=== PATIENT | female | born 1960 | race Caucasian/White ===

== ENCOUNTER 2016-05-02 14:01 | Emergency (ER) | payer OTHER ==
--- NOTE | 2016-05-02 15:16 | ED ---
Fall HPI - General Chief Complaint: Fall Stated Complaint: Fall Right side Pain Time Seen by Provider: 05/02/16 14:58 Source: patient, RN notes reviewed Mode of arrival: ambulatory - History of Present Illness Initial Comments: Patient is a 56-year-old female presents to the emergency room for evaluation of right anterior rib pain. Patient states on she tripped and fell running into the corner of her dresser. Patient states her rib area just underneath her right breast ran into the corner. Patient states she still having continuing pain since the incident. Patient states pain is worse or she takes a deep breath or coughs. Patient denies shortness of breath. Patient does admit that she smokes about a pack a half per day. Patient denies chest pain. Patient denies any other injuries during incident. Patient states that she has [place] that she takes at home for chronic pain and [place] was not helping her rib pain. Patient states that the pain has not gone away since so she thought she should come in to be evaluated. - Related Data Home Medications Medication Instructions Recorded Confirmed Citalopram Hydrobromide [CeleXA] 10 mg PO DAILY 05/02/16 05/02/16 HYDROcodone/APAP 7.5-325MG [[place] 1 tab PO Q6HR PRN 05/02/16 05/02/16 7.5-325] rOPINIRole HCL [Requip] 1 mg PO HS 05/02/16 05/02/16 Allergies Allergy/AdvReac Type Severity Reaction Status Date / Time aspirin Allergy Unknown Verified 05/02/16 14:52 Childhood Review of Systems ROS Statement: Those systems with pertinent positive or pertinent negative responses have been documented in the HPI. ROS Other: All systems not noted in ROS Statement are negative. 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 Limitations: no limitations General appearance: alert, in no apparent distress Head exam: Present: atraumatic, normocephalic, normal inspection Eye exam: Present: normal appearance ENT exam: Present: normal exam Neck exam: Present: normal inspection Respiratory exam: Present: normal lung sounds bilaterally, chest wall tenderness (Tenderness on palpating over the anterior rib area inferior to the right breast. No ecchymosis or swelling noted.). Absent: respiratory distress Cardiovascular Exam: Present: regular rate, normal rhythm, normal heart sounds Extremities exam: Present: normal inspection Back exam: Present: normal inspection Neurological exam: Present: alert, oriented X3, CN II-XII intact, normal gait Psychiatric exam: Present: normal affect, normal mood Skin exam: Present: warm, dry, intact, normal color. Absent: rash Course Vital Signs 05/02/16 14:48 Temperature 97.9 F Pulse Rate 93 Respiratory 18 Rate Blood Pressure 126/81 O2 Sat by Pulse 97 Oximetry Medical Decision Making - Medical Decision Making Patient is a 56-year-old female presents to the emergency room for evaluation of right anterior rib pain from fall. Chest x-ray shows no acute fractures or dislocation of the ribs. Results discussed with patient. Advised for patient to follow-up with PCP for repeat chest x-ray in 2 weeks. Advised patient to continue taking her at home [place] as needed for pain. Patient states she understands everything that was discussed with her. Return parameters discussed. Case discussed with Dr. Angeles. - Radiology Data Radiology results: report reviewed, image reviewed Disposition Clinical Impression: Fall, Contusion of rib on right side Disposition: HOME SELF-CARE Condition: Good Instructions: Rib Contusion (ED) Additional Instructions: Alternate ice and heat. Continue taking at home pain medications as needed. Please follow up with primary care provider for repeat chest x-ray in 2 weeks. If any new symptom arises or symptoms worsen, return to ER as soon as possible. Referrals: Estiven Sagastume MD [Primary Care Provider] - 1-2 days Time of Disposition: 16:16
--- NOTE | 2016-05-02 16:00 | XR ---
EXAMINATION TYPE: XR ribs RT w pa chest x-ray DATE OF EXAM: 05/02/2016 3:28 PM CLINICAL HISTORY: Right-sided chest and rib pain after injury. TECHNIQUE: Single frontal view of the chest is obtained. A frontal and oblique images of the right-si ded ribs are acquired. COMPARISON: Chest x-ray December 20, 2014. FINDINGS: There is no focal air space opacity, pleural effusion, or pneumothorax seen. The cardiac silhouette size is within normal limits. Surgical clips epigastric region are noted. Dedicated images of right-sided ribs show no acute displaced fracture. Overlying soft tissue is unrem arkable. IMPRESSION: 1. No acute cardiopulmonary process. 2. No acute displaced right-sided rib fractures are evident.
[2016-05-02 16:24] VITALS: BP 120/88; PULSE 78; RESP 16; TEMP 97
== END 2016-05-02 16:24 | disposition home or self-care (01) ==
LOC: EC 14:01
DX: S20.211A Contusion of right front wall of thorax, initial encounter (principal); W01.190A Fall on same level from slipping, tripping and stumbling with subsequent striking against furniture, initial encounter; F17.200 Nicotine dependence, unspecified, uncomplicated; Z79.899 Other long term (current) drug therapy; Z88.6 Allergy status to analgesic agent
CPT/HCPCS: 99284

== ENCOUNTER 2016-10-29 10:06 | Observation (INO) | payer OTHER ==
[2016-10-29] MEDS ORDERED: SODIUM CHLORIDE 0.9% 500 ML IV STA (10:49)
--- NOTE | 2016-10-29 11:00 | ED ---
General Adult HPI - General Chief complaint: Chest Pain Stated complaint: POSS HEART PROBLEM, SENT BY DR PIPER OFFICE Time Seen by Provider: 10/29/16 10:10 Source: patient, RN notes reviewed Mode of arrival: wheelchair Limitations: no limitations - History of Present Illness Initial comments: This is a 56-year-old female presents emergency department stating she has had left-sided chest pain for one week it is been constant every day and is sharp in quality. Patient states it's worse with deep breathing or coughing. It is worse with palpating the chest as well. Patient also complains of some left arm pain which is also worse with movement and or palpation. Patient denies any fever chills but she has been complaining of a cough lately. Patient states she is a smoker and has been thinking of putting but has not quit. Patient denies any palpitations. Patient denies being short of breath. Patient denies any abdominal pain patient denies nausea vomiting diarrhea per patient denies headache patient denies numbness weakness. Patient denies lightheadedness dizziness or near syncopal episode. - Related Data Home Medications Medication Instructions Recorded Confirmed HYDROcodone/APAP 7.5-325MG [[place] 1 tab PO TID 05/02/16 10/29/16 7.5-325] Citalopram Hydrobromide [CeleXA] 20 mg PO HS 10/29/16 10/29/16 rOPINIRole HCL [Requip] 0.5 mg PO HS 10/29/16 10/29/16 Allergies Allergy/AdvReac Type Severity Reaction Status Date / Time aspirin Allergy Bleeding Verified 10/29/16 10:56 disorder as a child Review of Systems ROS Statement: Those systems with pertinent positive or pertinent negative responses have been documented in the HPI. ROS Other: All systems not noted in ROS Statement are negative. 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 Patient is nontoxic and well- hydrated and is in mild distress. ENT: Neck is soft and supple. No significant lymphadenopathy is noted. Oropharynx is clear. Moist mucous membranes. Neck has full range of motion without eliciting any pain. There is no thyroid enlargement and no masses were felt. EYES: The sclera were anicteric and conjunctiva were pink and moist. Extraocular movements were intact and pupils were equal round and reactive to light. Eyelids were unremarkable. PULMONARY: Unlabored respirations. Good breath sounds bilaterally. No audible rales rhonchi or wheezing was noted. CARDIOVASCULAR: There is a regular rate and rhythm without any murmurs gallops or rubs. Patient has chest tenderness on the left upper chest with palpation. Patient states this exact pain she has when she takes a deep breath. ABDOMEN: Soft and nontender with normal bowel sounds. No palpable organomegaly was noted. There is no palpable pulsatile mass. SKIN: Skin is clear with no lesions or rashes and otherwise unremarkable. NEUROLOGIC: Patient is alert and oriented x3. Cranial nerves II through XII are grossly intact. Motor and sensory are also intact. Normal speech, volume and content. Symmetrical smile. MUSCULOSKELETAL: Normal extremities with adequate strength and full range of motion. No lower extremity swelling or edema. No calf tenderness. LYMPHATICS: No significant lymphadenopathy is noted PSYCHIATRIC: Limitations: no limitations Course Vital Signs 10/29/16 10/29/16 10/29/16 10:11 10:30 12:47 Temperature 99.0 F 98.1 F Pulse Rate 94 71 Respiratory 20 18 18 Rate Blood Pressure 142/81 117/60 O2 Sat by Pulse 97 98 Oximetry Medical Decision Making - Medical Decision Making EKG shows normal sinus rhythm at 80 bpm [place] interval is 172 QRS 72 QT interval 352 QTC is 405 patient's EKG shows no ST segment elevation or depression or T wave abnormalities are noted. Patient's chest x-ray shows no acute normalities. Patient's white count was elevated as was her neutrophils and the fact that she had no spleen and decided to give the patient antibiotics 2 blood cultures and admit the patient. - Lab Data Result diagrams: 10/29/16 10:24 10/29/16 10:24 Lab Results 10/29/16 10/29/16 10/29/16 Range/Units 10:24 10:24 10:24 WBC 24.0 H (3.8-10.6) k/uL RBC 4.94 (3.80-5.40) m/uL Hgb 15.4 (11.4-16.0) gm/dL Hct 48.4 H (34.0-46.0) % MCV 97.9 (80.0-100.0) fL MCH 31.1 (25.0-35.0) pg MCHC 31.8 (31.0-37.0) g/dL RDW 14.2 (11.5-15.5) % Plt Count 519 H (150-450) k/uL Neutrophils % 86 % Lymphocytes % 10 % Monocytes % 4 % Eosinophils % 0 % Basophils % 0 % Neutrophils # 20.6 H (1.3-7.7) k/uL Lymphocytes # 2.3 (1.0-4.8) k/uL Monocytes # 0.8 (0-1.0) k/uL Eosinophils # 0.1 (0-0.7) k/uL Basophils # 0.0 (0-0.2) k/uL PT (9.0-12.0) sec INR (<1.2) APTT (22.0-30.0) sec D-Dimer (<0.60) mg/L FEU Sodium 138 (137-145) mmol/L Potassium 4.9 (3.5-5.1) mmol/L Chloride 103 (98-107) mmol/L Carbon Dioxide 21 L (22-30) mmol/L Anion Gap 14 mmol/L BUN 17 (7-17) mg/dL Creatinine 0.80 (0.52-1.04) mg/dL Est GFR (MDRD) Af Amer >60 (>60 ml/min/1.73 sqM) Est GFR (MDRD) Non-Af >60 (>60 ml/min/1.73 sqM) Glucose 111 H (74-99) mg/dL Plasma Lactic Acid Fish (0.7-2.0) mmol/L Calcium 9.8 (8.4-10.2) mg/dL Magnesium 2.1 (1.6-2.3) mg/dL Total Bilirubin 0.4 (0.2-1.3) mg/dL AST 58 H (14-36) U/L ALT 63 H (9-52) U/L Alkaline Phosphatase 133 H (38-126) U/L Total Creatine Kinase 48 (30-135) U/L CK-MB (CK-2) 1.2 (0.0-2.4) ng/mL CK-MB (CK-2) Rel Index 2.5 Troponin I <0.012 (0.000-0.034) ng/mL Total Protein 7.7 (6.3-8.2) g/dL Albumin 4.7 (3.5-5.0) g/dL 10/29/16 10/29/16 Range/Units 10:24 12:15 WBC (3.8-10.6) k/uL RBC (3.80-5.40) m/uL Hgb (11.4-16.0) gm/dL Hct (34.0-46.0) % MCV (80.0-100.0) fL MCH (25.0-35.0) pg MCHC (31.0-37.0) g/dL RDW (11.5-15.5) % Plt Count (150-450) k/uL Neutrophils % % Lymphocytes % % Monocytes % % Eosinophils % % Basophils % % Neutrophils # (1.3-7.7) k/uL Lymphocytes # (1.0-4.8) k/uL Monocytes # (0-1.0) k/uL Eosinophils # (0-0.7) k/uL Basophils # (0-0.2) k/uL PT 10.0 (9.0-12.0) sec INR 1.0 (<1.2) APTT 23.5 (22.0-30.0) sec D-Dimer 0.23 (<0.60) mg/L FEU Sodium (137-145) mmol/L Potassium (3.5-5.1) mmol/L Chloride (98-107) mmol/L Carbon Dioxide (22-30) mmol/L Anion Gap mmol/L BUN (7-17) mg/dL Creatinine (0.52-1.04) mg/dL Est GFR (MDRD) Af Amer (>60 ml/min/1.73 sqM) Est GFR (MDRD) Non-Af (>60 ml/min/1.73 sqM) Glucose (74-99) mg/dL Plasma Lactic Acid Fish 1.0 (0.7-2.0) mmol/L Calcium (8.4-10.2) mg/dL Magnesium (1.6-2.3) mg/dL Total Bilirubin (0.2-1.3) mg/dL AST (14-36) U/L ALT (9-52) U/L Alkaline Phosphatase (38-126) U/L Total Creatine Kinase (30-135) U/L CK-MB (CK-2) (0.0-2.4) ng/mL CK-MB (CK-2) Rel Index Troponin I (0.000-0.034) ng/mL Total Protein (6.3-8.2) g/dL Albumin (3.5-5.0) g/dL Disposition Clinical Impression: Leukocytosis, Chest pain, History of splenectomy Disposition: ADMITTED IP TO THIS HOSP Referrals: Estiven Sagastume MD [Primary Care Provider] - 1-2 days Time of Disposition: 13:20
[2016-10-29 11:06] LABS: Basophils % (A) 0 %; CHCM 32.9; Eosinophils # (A) 0.1 k/uL (0-0.7); Eosinophils % (A) 0 %; HCT 48.4 % (34.0-46.0); HDW 2.17; HGB 15.4 gm/dL (11.4-16.0); Luc # (Auto) 0.16; Luc % (Auto) 1; Lymphocytes # (A) 2.3 k/uL (1.0-4.8); Lymphocytes % (A) 10 %; MCH 31.1 pg (25.0-35.0); MCHC 31.8 g/dL (31.0-37.0); MCV 97.9 fL (80.0-100.0); Monocytes # (A) 0.8 k/uL (0-1.0); Monocytes % (A) 4 %; Neutrophils # (A) 20.6 k/uL (1.3-7.7); Neutrophils % (A) 86 %; RBC 4.94 m/uL (3.80-5.40); RDW 14.2 % (11.5-15.5)
--- NOTE | 2016-10-29 11:12 | XR ---
EXAMINATION TYPE: XR chest 2V DATE OF EXAM: 10/29/2016 COMPARISON: 05/02/2016 HISTORY: Shortness of breath TECHNIQUE: Frontal and lateral views of the chest are obtained. FINDINGS: There is no focal air space opacity, pleural effusion, or pneumothorax seen. The cardiac silhouette size is within normal limits. The osseous structures are intact. Surgical clips are seen in the left upper quadrant. IMPRESSION: No acute cardiopulmonary process.
[2016-10-29 11:17] LABS: ALT 63 U/L (9-52); AST 58 U/L (14-36); Alkaline Phosphatase 133 U/L (38-126); Anion Gap 14 mmol/L; Blood Urea Nitrogen 17 mg/dL (7-17); Calcium 9.8 mg/dL (8.4-10.2); Carbon Dioxide 21 mmol/L (22-30); Chloride 103 mmol/L (98-107); Glucose 111 mg/dL (74-99); Magnesium 2.1 mg/dL (1.6-2.3); Non-African American GFR(MDRD) >60 (>60 ml/min/1.73 sqM); Potassium 4.9 mmol/L (3.5-5.1); Sodium 138 mmol/L (137-145); Total Bilirubin 0.4 mg/dL (0.2-1.3); Total Protein 7.7 g/dL (6.3-8.2)
[2016-10-29 11:27] LABS: Creatine Kinase 48 U/L (30-135)
[2016-10-29 11:37] LABS: Partial Thromboplastin Time 23.5 sec (22.0-30.0)
[2016-10-29 11:40] LABS: Creatine Kinase MB 1.2 ng/mL (0.0-2.4); Troponin I <0.012 ng/mL (0.000-0.034)
[2016-10-29] MEDS ORDERED: LEVOFLOXACIN 750MG-D5W PMX 750 MG in DEXTROSE/WATER 1 150ML.BAG IVPB STA (12:00)
[2016-10-29] MEDS ORDERED: SODIUM CHLORIDE 0.9% 1,000 ML IV ONE ×2 (12:01→13:20)
[2016-10-29] MEDS ORDERED: HYDROmorphone 1 MG/ML 1 ML SYRINGE IVP STA (13:05)
[2016-10-29 13:31] LABS: Appearance,Urine Clear (Clear); Bilirubin,Urine Negative (Negative); Glucose,Urine (UA) Negative (Negative); Ketones,Urine Negative (Negative); Leukocyte Esterase,Urine Negative (Negative); Nitrite,Urine Negative (Negative); PH, Urine 5.5 (5.0-8.0); Particle Count 605; Protein,Urine Negative (Negative); Specific Gravity,Urine 1.006 (1.001-1.035); UA Billing (MACRO vs. MICRO) CHEM; Urobilinogen,Urine <2.0 mg/dL (<2.0)
[2016-10-29] MEDS ORDERED: PNEUMOCOCCAL VACC-PNEUMOVAX 23 25 MCG/0.5 ML VIAL IM ONE (16:03)
--- NOTE | 2016-10-29 16:27 | US ---
EXAMINATION TYPE: US venous doppler duplex UE LT DATE OF EXAM: 10/29/2016 COMPARISON: NONE CLINICAL HISTORY: Pain. Left arm pain x 1 week SIDE PERFORMED: Left Left Arm: Appears negative for DVT Structures were possible are compressible. Normal color flow and normal Doppler sonography is present . No persistent filling defects are evident. IMPRESSION: Left upper extremity appears negative for deep venous thrombosis.
[2016-10-29] MEDS: HYDROcodone/APAP 7.5-325MG 1 EACH TAB PO SCH ×2 (17:36→20:53)
[2016-10-29] MEDS ORDERED: CITALOPRAM HYDROBROMIDE 20 MG TAB PO SCH (21:00)
[2016-10-29] MEDS ORDERED: MELATONIN 3 MG TABLET PO SCH (21:00)
--- NOTE | 2016-10-30 07:22 | XR ---
EXAMINATION TYPE: XR chest 2V DATE OF EXAM: 10/30/2016 COMPARISON: Yesterday HISTORY: Chest pain TECHNIQUE: Frontal and lateral views of the chest are obtained. FINDINGS: Heart and mediastinum are normal. Lungs are clear of consolidation. There are no hilar mas ses. There is no pleural effusion. The bony thorax is intact. IMPRESSION: No active cardiopulmonary disease. Normal heart. There is clearing of minimal atelectasi s in the right lung compared to last exam.
[2016-10-30 07:58] LABS: Basophils % (A) 0 %; CH 31.6; CHCM 31.6; Eosinophils # (A) 0.1 k/uL (0-0.7); Eosinophils % (A) 1 %; HCT 44.3 % (34.0-46.0); HDW 2.25; HGB 13.5 gm/dL (11.4-16.0); Luc # (Auto) 0.39; Luc % (Auto) 2; Lymphocytes # (A) 4.4 k/uL (1.0-4.8); Lymphocytes % (A) 28 %; MCH 30.7 pg (25.0-35.0); MCHC 30.4 g/dL (31.0-37.0); MCV 100.7 fL (80.0-100.0); Macrocytosis Slight; Mean Platelet Volume 8.5; Monocytes # (A) 0.8 k/uL (0-1.0); Monocytes % (A) 5 %; Neutrophils # (A) 10.2 k/uL (1.3-7.7); Neutrophils % (A) 64 %; RDW 14.2 % (11.5-15.5); WBC 15.9 k/uL (3.8-10.6); WBC (Perox) 16.17
[2016-10-30] MEDS: HYDROcodone/APAP 7.5-325MG 1 EACH TAB PO SCH ×2 (08:29→17:37)
[2016-10-30 08:37] LABS: ALT 45 U/L (9-52); AST 34 U/L (14-36); Alkaline Phosphatase 76 U/L (38-126); Anion Gap 5 mmol/L; Blood Urea Nitrogen 13 mg/dL (7-17); Calcium 8.6 mg/dL (8.4-10.2); Carbon Dioxide 21 mmol/L (22-30); Chloride 113 mmol/L (98-107); Glucose 87 mg/dL (74-99); Non-African American GFR(MDRD) >60 (>60 ml/min/1.73 sqM); Potassium 4.8 mmol/L (3.5-5.1); Sodium 139 mmol/L (137-145); Total Bilirubin 0.2 mg/dL (0.2-1.3); Total Protein 5.4 g/dL (6.3-8.2)
[2016-10-30] MEDS ORDERED: LEVOFLOXACIN 750MG-D5W PMX 750 MG in DEXTROSE/WATER 1 150ML.BAG IVPB SCH (12:30)
[2016-10-30 16:09] VITALS: BP 107/59; PULSE 59; RESP 14; TEMP 98.3
[2016-10-30] MEDS ORDERED: methylPREDNISolone SOD SUCCI 125 MG/2 ML VIAL IV STA (16:51)
--- NOTE | 2016-10-30 17:39 | P.HPIM ---
History of Present Illness H&P Date: 10/29/16 This is a 56-year-old female comes in the hospital with ongoing pain in her left arm and her anterior chest worsened with any movement for last 1 week. States that she has a history of tobacco use and underlying COPD has been having significant amount of cough with thick sputum production Patient was seen in the ER chest x-ray did not reveal any pneumonic infiltrate. Patient however was clinically wheezing apparently at that time was given a breathing treatment Due to pain in her left upper arm ultrasound was done which was negative Denies having any headaches blurry vision nausea vomiting abdominal pain urinary urgency or frequency per EKG does not reveal ST-T wave changes no conduction delays are noted. Initial troponin was negative. Review of Systems All systems: negative (Noted in HPI) Past Medical History Past Medical History: Osteoarthritis (OA) Additional Past Medical History / Comment(s): pt is rt hand dominant. 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 , pain clinic procedures-cortison inj Past Anesthesia/Blood Transfusion Reactions: No Reported Reaction Smoking Status: Current every day smoker - Past Family History Father Family Medical History: Cancer Additional Family Medical History / Comment(s): colon cancer Mother Family Medical History: Congestive Heart Failure (CHF) Additional Family Medical History / Comment(s): emphysema Medications and Allergies Home Medications Medication Instructions Recorded Confirmed Type HYDROcodone/APAP 7.5-325MG [[place] 1 tab PO TID 05/02/16 10/29/16 History 7.5-325] Citalopram Hydrobromide [CeleXA] 20 mg PO HS 10/29/16 10/29/16 History Melatonin 12 mg PO HS 10/29/16 10/29/16 History rOPINIRole HCL [Requip] 0.5 mg PO HS 10/29/16 10/29/16 History Allergies Allergy/AdvReac Type Severity Reaction Status Date / Time aspirin Allergy Bleeding Verified 10/29/16 10:56 disorder as a child Physical Exam Vitals: Vital Signs Temp Pulse Pulse Resp BP BP Pulse Ox 10/29/16 19:41 98.3 F 80 18 122/65 93 L 10/29/16 16:00 17 10/29/16 15:34 97.8 F 70 17 100/61 96 10/29/16 14:26 98.2 F 60 18 144/64 99 10/29/16 13:48 98.0 F 81 18 131/75 97 10/29/16 12:47 98.1 F 71 18 117/60 98 10/29/16 10:30 18 10/29/16 10:11 99.0 F 94 20 142/81 97 Intake and Output 10/29/16 10/29/16 10/29/16 06:59 14:59 22:59 Intake Total 240 Balance 240 Intake: Oral 240 Other: Voiding Method Toilet Toilet Weight 64 kg Patient Weight 10/30/16 06:59 Weight 64 kg Physical exam Gen. appearance oriented 3 in no distress Neck is supple no JVD Lungs wheezing is appreciated. No rhonchi noted. Musculoskeletal some recurrence of symptoms with flexion of the left arm Heart S1-S2 heard regular rate and rhythm no murmurs appreciated Abdomen is soft nontender no organomegaly bowel sounds are intact Neurologically cranial nerves II-12 grossly intact no focal motor or sensory deficits noted Skin no abnormalities appreciated Results CBC & Chem 7: 10/30/16 07:38 10/30/16 07:34 Labs: Abnormal Lab Results - Last 24 Hours (Table) 10/29/16 10/29/16 Range/Units 10:24 10:24 WBC 24.0 H (3.8-10.6) k/uL Hct 48.4 H (34.0-46.0) % Plt Count 519 H (150-450) k/uL Neutrophils # 20.6 H (1.3-7.7) k/uL Carbon Dioxide 21 L (22-30) mmol/L Glucose 111 H (74-99) mg/dL AST 58 H (14-36) U/L ALT 63 H (9-52) U/L Alkaline Phosphatase 133 H (38-126) U/L Assessment and Plan Plan: Leucocytosis due to tracheobronchitis Left arm tenderness, musculoskeletal splenectomy Acute exacerbation of underlying COPD Plan Pneumovax was given patient is recommended to have a meningococcal vaccine outpatient due to history of splenectomy Patient will be discharged home on a burst of steroids and Levaquin for 5 days Symptoms of improved.
--- NOTE | 2016-10-30 17:40 | P.DS ---
Providers Date of admission: 10/29/16 13:20 Attending physician: Paramjit Buckley MD Primary care physician: Estiven Sagastume [facility] Course: This is a 56-year-old female comes in the hospital with ongoing pain in her left arm and her anterior chest worsened with any movement for last 1 week. States that she has a history of tobacco use and underlying COPD has been having significant amount of cough with thick sputum production Patient was seen in the ER chest x-ray did not reveal any pneumonic infiltrate. Patient however was clinically wheezing apparently at that time was given a breathing treatment Due to pain in her left upper arm ultrasound was done which was negative Denies having any headaches blurry vision nausea vomiting abdominal pain urinary urgency or frequency per EKG does not reveal ST-T wave changes no conduction delays are noted. Initial troponin was negative. 2016 Patient's symptoms is significantly improved Denies having any additional complaints however is concerned regarding her breathing. Is able to ambulate without any hypoxemia. Nonproductive cough is reported as well Physical exam Gen. appearance oriented 3 in no distress Neck is supple no JVD Lungs wheezing is appreciated. No rhonchi noted. Musculoskeletal some recurrence of symptoms with flexion of the left arm Heart S1-S2 heard regular rate and rhythm no murmurs appreciated Abdomen is soft nontender no organomegaly bowel sounds are intact Neurologically cranial nerves II-12 grossly intact no focal motor or sensory deficits noted Skin no abnormalities appreciated Assessment and Plan Plan: Leucocytosis due to tracheobronchitis Left arm tenderness, musculoskeletal splenectomy Acute exacerbation of underlying COPD Plan Pneumovax was given patient is recommended to have a meningococcal vaccine outpatient due to history of splenectomy Patient will be discharged home on a burst of steroids and Levaquin for 5 days Symptoms of improved. Plan - Discharge Summary New Discharge Prescriptions: New Levofloxacin [Levaquin] 500 mg PO DAILY #5 tab predniSONE [Deltasone] 40 mg PO DAILY #10 tablet Continue HYDROcodone/APAP 7.5-325MG [[place] 7.5-325] 1 tab PO TID Citalopram Hydrobromide [CeleXA] 20 mg PO HS rOPINIRole HCL [Requip] 0.5 mg PO HS Melatonin 12 mg PO HS Discharge Medication List HYDROcodone/APAP 7.5-325MG [[place] 7.5-325] 1 tab PO TID 05/02/16 [History] Citalopram Hydrobromide [CeleXA] 20 mg PO HS 10/29/16 [History] Melatonin 12 mg PO HS 10/29/16 [History] rOPINIRole HCL [Requip] 0.5 mg PO HS 10/29/16 [History] Levofloxacin [Levaquin] 500 mg PO DAILY #5 tab 10/30/16 [Rx] predniSONE [Deltasone] 40 mg PO DAILY #10 tablet 10/30/16 [Rx] Follow up Appointment(s)/Referral(s): Estiven Sagastume MD [Primary Care Provider] - 1-2 days Discharge Disposition: HOME SELF-CARE
== END 2016-10-30 18:24 | disposition home or self-care (01) ==
LOC: EC 10:06 → 3OBS 13:20
PROVIDERS: ADMIT Internal Medicine; ATTEND Internal Medicine
DX: J44.1 Chronic obstructive pulmonary disease with (acute) exacerbation (principal); Z23 Encounter for immunization; M79.602 Pain in left arm; F17.200 Nicotine dependence, unspecified, uncomplicated; G89.29 Other chronic pain; F32.9 Major depressive disorder, single episode, unspecified; D72.829 Elevated white blood cell count, unspecified; M16.0 Bilateral primary osteoarthritis of hip; M70.71 Other bursitis of hip, right hip; M70.72 Other bursitis of hip, left hip; Z90.81 Acquired absence of spleen; Z88.6 Allergy status to analgesic agent; Z79.891 Long term (current) use of opiate analgesic; Z79.899 Other long term (current) drug therapy; Z82.5 Family history of asthma and other chronic lower respiratory diseases; Z82.49 Family history of ischemic heart disease and other diseases of the circulatory system
CPT/HCPCS: 96361 ×2; 96366; 96367; 96375 ×2; 96365; 99285; 36415; 93005; 85379; 80053 ×2; 82550; 82553; 83605; 83735; 84484; 85025 ×2; 85610; 85730; 81003; 87040; 71020 ×2; 93971; 90732; G0378 ×2; G0009; J2930; J0696 ×2; J1170; J1956 ×2

== ENCOUNTER 2016-11-17 19:35 | Inpatient (IN) | payer OTHER ==
[2016-11-17] MEDS ORDERED: ACETAMINOPHEN TAB 500 MG TAB PO STA (19:47)
--- NOTE | 2016-11-17 20:01 | ED ---
General Adult HPI - General Chief complaint: Weakness Stated complaint: pain all over-revisit Time Seen by Provider: 11/17/16 19:47 Source: patient, family, RN notes reviewed, old records reviewed Mode of arrival: wheelchair Limitations: no limitations - History of Present Illness Initial comments: 56-year-old female presents chief complaint of fever and generalized weakness. Patient does admit to coughing over the past week. She was seen and evaluated approximately 3 weeks ago for fever and weakness. She received antibiotics and steroids at that time. She was discharged from the hospital and then over the past week some of the symptoms have returned including productive cough, right- sided chest pain. Patient denies any nausea vomiting or diarrhea, she has been constipated. She does have past medical history of chronic pain and takes Claude. She is a current smoker. She denies dysuria, but does state urinary frequency and urgency. Past surgical history of splenectomy. - Related Data Home Medications Medication Instructions Recorded Confirmed HYDROcodone/APAP 7.5-325MG [Claude 1 tab PO TID 05/02/16 11/17/16 7.5-325] Citalopram Hydrobromide [CeleXA] 20 mg PO HS 10/29/16 11/17/16 Melatonin 10 mg PO HS 10/29/16 11/17/16 rOPINIRole HCL [Requip] 0.5 mg PO HS 10/29/16 11/17/16 Polyethylene Glycol 3350 [Miralax] 17 gm PO DAILY PRN 11/17/16 11/17/16 Previous Rx's Medication Instructions Recorded predniSONE [Deltasone] 40 mg PO DAILY #10 tablet 10/30/16 Allergies Allergy/AdvReac Type Severity Reaction Status Date / Time aspirin Allergy Bleeding Verified 11/17/16 20:15 disorder as a child Review of Systems ROS Statement: Those systems with pertinent positive or pertinent negative responses have been documented in the HPI. ROS Other: All systems not noted in ROS Statement are negative. Past Medical History Past Medical History: Osteoarthritis (OA) Additional Past Medical History / Comment(s): pt is rt hand dominant. 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 , pain clinic procedures-cortison inj Past Anesthesia/Blood Transfusion Reactions: No Reported Reaction Past Psychological History: Depression Smoking Status: Current every day smoker Past Alcohol Use History: Daily Past Drug Use History: None Reported - Past Family History Father Family Medical History: Cancer Additional Family Medical History / Comment(s): colon cancer Mother Family Medical History: Congestive Heart Failure (CHF) Additional Family Medical History / Comment(s): emphysema General Exam Limitations: no limitations General appearance: alert, in distress Head exam: Present: atraumatic, normocephalic Eye exam: Present: normal appearance, PERRL ENT exam: Present: mucous membranes moist Neck exam: Present: normal inspection. Absent: meningismus Respiratory exam: Present: rales (Right lung field). Absent: respiratory distress Cardiovascular Exam: Present: normal rhythm, tachycardia GI/Abdominal exam: Present: soft, distended. Absent: tenderness, guarding Extremities exam: Present: normal inspection, normal capillary refill. Absent: pedal edema Neurological exam: Present: alert, oriented X3, CN II-XII intact. Absent: motor sensory deficit Psychiatric exam: Present: normal affect, normal mood Skin exam: Present: warm, dry, intact, cyanosis. Absent: diaphoretic Course Vital Signs 11/17/16 11/17/16 11/17/16 19:42 20:07 20:47 Temperature 102.8 F H 102.7 F H Pulse Rate 121 H 96 Pulse Rate [ 112 H [employer] ] Respiratory 20 17 Rate Blood Pressure 108/67 128/71 O2 Sat by Pulse 95 96 Oximetry EKG Findings - EKG Comments: EKG Findings:: EKG shows sinus tachycardia, ventricular rate 119, there is possible left atrial enlargement, KS 162, QRS duration 74, QTC 427, no signs of ischemia Medical Decision Making - Medical Decision Making 56-year-old female presenting with chief complaint of generalized weakness, fever, and cough. Patient does have rails of the right middle lung field, she is tachycardic febrile, and blood pressure is stable although systolic pressure is 108. She receives Tylenol, IV hydration. Laboratory studies reveal elevation serum white count, 13.3, hemoglobin is stable. There is mild hyponatremia at 129. Chest x-ray reviewed by me shows right upper lobe pneumonia. This is consistent with the patient's history and physical exam. She started on ceftriaxone and azithromycin for community acquired pneumonia. Patient was seen at this hospital for similar symptoms approximately 2 weeks ago, she was given antibiotics as an outpatient and despite this her symptoms have worsened. She will be admitted for IV antibiotics and symptomatically treatment. Urinalysis is pending. Blood culture and urine culture have been obtained. On reevaluation, patient's vital signs have improved, she is feeling somewhat better. Diagnosis: Community acquired pneumonia, failed outpatient treatment, hyponatremia. - Lab Data Result diagrams: 11/17/16 20:00 11/17/16 20:00 Lab Results 11/17/16 11/17/16 11/17/16 Range/Units 20:00 20:00 20:00 WBC 13.3 H (3.8-10.6) k/uL RBC 4.71 (3.80-5.40) m/uL Hgb 14.7 (11.4-16.0) gm/dL Hct 43.8 (34.0-46.0) % MCV 93.0 D (80.0-100.0) fL MCH 31.3 (25.0-35.0) pg MCHC 33.7 (31.0-37.0) g/dL RDW 14.8 (11.5-15.5) % Plt Count 347 (150-450) k/uL Neutrophils % 77 % Lymphocytes % 13 % Monocytes % 5 % Eosinophils % 0 % Basophils % 1 % Neutrophils # 10.3 H (1.3-7.7) k/uL Lymphocytes # 1.8 (1.0-4.8) k/uL Monocytes # 0.7 (0-1.0) k/uL Eosinophils # 0.1 (0-0.7) k/uL Basophils # 0.1 (0-0.2) k/uL PT (9.0-12.0) sec INR (<1.2) APTT (22.0-30.0) sec Sodium 129 L (137-145) mmol/L Potassium 4.4 (3.5-5.1) mmol/L Chloride 95 L (98-107) mmol/L Carbon Dioxide 23 (22-30) mmol/L Anion Gap 11 mmol/L BUN 14 (7-17) mg/dL Creatinine 0.90 (0.52-1.04) mg/dL Est GFR (MDRD) Af Amer >60 (>60 ml/min/1.73 sqM) Est GFR (MDRD) Non-Af >60 (>60 ml/min/1.73 sqM) Glucose 103 H (74-99) mg/dL Plasma Lactic Acid Fish 1.3 (0.7-2.0) mmol/L Calcium 9.2 (8.4-10.2) mg/dL Total Bilirubin 0.6 (0.2-1.3) mg/dL AST 61 H (14-36) U/L ALT 46 (9-52) U/L Alkaline Phosphatase 95 (38-126) U/L Troponin I (0.000-0.034) ng/mL Total Protein 7.1 (6.3-8.2) g/dL Albumin 3.8 (3.5-5.0) g/dL 11/17/16 11/17/16 Range/Units 20:00 20:00 WBC (3.8-10.6) k/uL RBC (3.80-5.40) m/uL Hgb (11.4-16.0) gm/dL Hct (34.0-46.0) % MCV (80.0-100.0) fL MCH (25.0-35.0) pg MCHC (31.0-37.0) g/dL RDW (11.5-15.5) % Plt Count (150-450) k/uL Neutrophils % % Lymphocytes % % Monocytes % % Eosinophils % % Basophils % % Neutrophils # (1.3-7.7) k/uL Lymphocytes # (1.0-4.8) k/uL Monocytes # (0-1.0) k/uL Eosinophils # (0-0.7) k/uL Basophils # (0-0.2) k/uL PT 9.9 (9.0-12.0) sec INR 1.0 (<1.2) APTT 25.8 (22.0-30.0) sec Sodium (137-145) mmol/L Potassium (3.5-5.1) mmol/L Chloride (98-107) mmol/L Carbon Dioxide (22-30) mmol/L Anion Gap mmol/L BUN (7-17) mg/dL Creatinine (0.52-1.04) mg/dL Est GFR (MDRD) Af Amer (>60 ml/min/1.73 sqM) Est GFR (MDRD) Non-Af (>60 ml/min/1.73 sqM) Glucose (74-99) mg/dL Plasma Lactic Acid Fish (0.7-2.0) mmol/L Calcium (8.4-10.2) mg/dL Total Bilirubin (0.2-1.3) mg/dL AST (14-36) U/L ALT (9-52) U/L Alkaline Phosphatase (38-126) U/L Troponin I 0.012 (0.000-0.034) ng/mL Total Protein (6.3-8.2) g/dL Albumin (3.5-5.0) g/dL Critical Care Time Critical Care Time: Yes Total Critical Care Time: 35 Disposition Clinical Impression: Hyponatremia, Leukocytosis, Community acquired bacterial pneumonia Disposition: ADMITTED IP TO THIS [facility] Condition: Stable Referrals: Estiven Sagastume MD [Primary Care Provider] - 1-2 days Decision to Admit Reason: Admit from EC Decision Date: 11/17/16 Decision Time: 20:56
[2016-11-17 20:15] LABS: Basophils # (A) 0.1 k/uL (0-0.2); Basophils % (A) 1 %; CH 32.5; CHCM 35.1; Eosinophils # (A) 0.1 k/uL (0-0.7); Eosinophils % (A) 0 %; HCT 43.8 % (34.0-46.0); HDW 2.48; HGB 14.7 gm/dL (11.4-16.0); Luc # (Auto) 0.39; Luc % (Auto) 3; Lymphocytes # (A) 1.8 k/uL (1.0-4.8); Lymphocytes % (A) 13 %; MCH 31.3 pg (25.0-35.0); MCHC 33.7 g/dL (31.0-37.0); Mean Platelet Volume 8.6; Monocytes # (A) 0.7 k/uL (0-1.0); Monocytes % (A) 5 %; Neutrophils # (A) 10.3 k/uL (1.3-7.7); Neutrophils % (A) 77 %; RBC 4.71 m/uL (3.80-5.40); RDW 14.8 % (11.5-15.5); WBC 13.3 k/uL (3.8-10.6); WBC (Perox) 13.03
[2016-11-17] MEDS: SODIUM CHLORIDE 0.9% 500 ML IV SCH ×2 (20:19→20:55)
[2016-11-17 20:27] LABS: Partial Thromboplastin Time 25.8 sec (22.0-30.0); Prothrombin Time 9.9 sec (9.0-12.0)
[2016-11-17 20:35] LABS: ALT 46 U/L (9-52); AST 61 U/L (14-36); Alkaline Phosphatase 95 U/L (38-126); Anion Gap 11 mmol/L; Blood Urea Nitrogen 14 mg/dL (7-17); Calcium 9.2 mg/dL (8.4-10.2); Carbon Dioxide 23 mmol/L (22-30); Chloride 95 mmol/L (98-107); Glucose 103 mg/dL (74-99); Non-African American GFR(MDRD) >60 (>60 ml/min/1.73 sqM); Potassium 4.4 mmol/L (3.5-5.1); Sodium 129 mmol/L (137-145); Total Bilirubin 0.6 mg/dL (0.2-1.3); Total Protein 7.1 g/dL (6.3-8.2)
--- NOTE | 2016-11-17 20:38 | XR ---
EXAMINATION TYPE: XR chest 2V DATE OF EXAM: 11/17/2016 COMPARISON: 10/30/2016 HISTORY: Shortness of breath TECHNIQUE: Frontal and lateral views of the chest are obtained. FINDINGS: Scattered senescent parenchymal changes noted. Hyperinflation compatible with COPD. Right upper lobe airspace consolidation felt to reflect pneumonia until proven otherwise. Recommend c linical correlation and follow-up until resolution. Heart size is stable. Mediastinal structures are stable and grossly unremarkable. No evidence for hilar prominence. Degenerative changes dorsal spine. IMPRESSION: 1. Findings felt to reflect right upper lobe pneumonia.
[2016-11-17] MEDS ORDERED: AZITHROMYCIN 500 MG in SODIUM CHLORIDE 0.9% 250 ML IVPB STA (20:43)
[2016-11-17] MEDS: SODIUM CHLORIDE 0.9% 1,000 ML IV SCH (20:53)
[2016-11-17] MEDS ORDERED: MORPHINE SULFATE 4 MG/ML SYRINGE IV PRN (20:56)
[2016-11-17] MEDS ORDERED: ONDANSETRON 4 MG/2 ML VIAL IVP PRN (20:56)
[2016-11-17] MEDS ORDERED: NALOXONE 0.4 MG/ML 1 ML VIAL IV PRN (20:56)
[2016-11-17] MEDS ORDERED: POLYETHYLENE GLYCOL 3350 17 GM POWD.PACK PO PRN (23:14)
[2016-11-17] MEDS: HYDROcodone/APAP 7.5-325MG 1 EACH TAB PO SCH (23:38)
[2016-11-18] MEDS: MELATONIN 5 MG TABLET PO SCH ×2 (00:10→20:41)
[2016-11-18] MEDS: NICOTINE 21MG/24HR PATCH TRANSDERM SCH ×2 (00:10→07:22)
[2016-11-18 04:38] LABS: Appearance,Urine Clear (Clear); Bacteria,Urine Rare /hpf; Bilirubin,Urine Negative (Negative); Glucose,Urine (UA) Negative (Negative); Ketones,Urine 1+ (Negative); Leukocyte Esterase,Urine Moderate (Negative); Mucus,Urine Rare /hpf; Nitrite,Urine Negative (Negative); Particle Count 2229; Protein,Urine Negative (Negative); RBC,Urine 1 /hpf (0-5); Specific Gravity,Urine 1.009 (1.001-1.035); UA Billing (MACRO vs. MICRO) MICRO; Urobilinogen,Urine <2.0 mg/dL (<2.0); WBC,Urine 8 /hpf (0-5)
[2016-11-18] MEDS: SODIUM CHLORIDE 0.9% 1,000 ML IV SCH ×2 (06:41→17:14)
[2016-11-18] MEDS: ACETAMINOPHEN TAB 325 MG TAB PO PRN (07:22)
[2016-11-18] MEDS ORDERED: BISACODYL 10 MG SUPP RECTAL PRN (08:22)
--- NOTE | 2016-11-18 08:30 | P.CONS ---
History of Present Illness - Reason for Consult Consult date: 11/18/16 Community acquired pneumonia - History of Present Illness This is a 56-year-old female who was recently hospitalized on the observation unit on October 29 through the at which time she was treated for otitis leukocytosis due to tracheobronchitis, left arm tenderness and acute exacerbation of COPD. She was discharged home on tapering dose of steroids and Levaquin for 5 days. Patient states prior to that admission she went to her primary care physician for left arm and left lung pain and was sent into the hospital. She apparently completed a course of antibiotics. She complains of being constipated since she was on the prednisone and antibiotics in the last bowel movement was 2 weeks ago. She states last week that she went to her doctor and she was to take suppositories and MiraLAX. On Tuesday night she states she had some right-sided chest pain woke her at 3 in the morning and lasted for about 5 minutes. It didn't come back at that time but she has had repeated episodes occasionally. She has a cough with sputum production. She has had a fever and chills for the past 1 week. She states she has been in bed for the past 4 days. She has had decreased appetite but is better now. She denies having any diarrhea. Patient does follow with Dr. Robert and undergoes back and neck injections as well as physical therapy for chronic back and neck pain. It is noted that on her last admission in October patient was given pneumo vacs and she was recommended for meningococcal vaccine outpatient due to her history of splenectomy. Patient indicates to me that she has been up-to- date on all her immunizations. Patient states her spleen ruptured when she was 14 years of age and was reason for splenectomy. Patient presented with a temperature of 102.8 and leukocytosis of 13.3. Her pulse was 121 and blood pressure was on the lower side. Sodium was 129. Albumin 3.8, GFR greater than 60. Urinalysis was clear with leukoesterase moderate, bacteria rare, wbc's 8. Chest x-ray shows a right upper lobe pneumonia. Blood culture and urine culture in process. Patient is to provide a sputum culture. Patient also states that she falls frequently due to her knee giving out on her but denies injuries. Review of Systems All systems: negative Constitutional: Reports anorexia, Reports chills, Reports chronic pain, Reports fatigue, Reports fever, Reports lethargy, Reports malaise, Reports poor appetite , Reports sweats, Reports weakness Eyes: denies blurred vision, denies pain Ears, nose, mouth and throat: Denies headache, Denies sore throat Cardiovascular: Reports chest pain, Reports shortness of breath, Denies edema, Denies leg edema, Denies lightheadedness, Denies syncope Respiratory: Denies cough Gastrointestinal: Reports constipation, Reports loss of appetite, Denies abdominal pain, Denies diarrhea, Denies nausea, Denies vomiting Genitourinary: Denies dysuria, Denies hematuria Musculoskeletal: Reports low back pain, Denies myalgias Integumentary: Denies pruritus, Denies rash Neurological: Denies numbness, Denies weakness Psychiatric: Denies anxiety, Denies depression Endocrine: Denies fatigue, Denies weight change Past Medical History Past Medical History: Osteoarthritis (OA) Additional Past Medical History / Comment(s): pt is rt hand dominant. 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 , pain clinic procedures-cortison inj Past Anesthesia/Blood Transfusion Reactions: No Reported Reaction Past Psychological History: Depression Additional Psychological History / Comment(s): pt stated she is treated for depressionand currently feels well maintained on meds Smoking Status: Current every day smoker Past Alcohol Use History: Daily Additional Past Alcohol Use History / Comment(s): started smoking 1954 smoked 1.5 ppd. She denies any medical marijuana, marijuana, street drug use. She lives at home and her sons live with her. There is a pit bull, Pomeranian and cat in the home. She denies any recent travel. 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 Past Drug Use History: None Reported - Past Family History Father Family Medical History: Cancer Additional Family Medical History / Comment(s): colon cancer Mother Family Medical History: Congestive Heart Failure (CHF) Additional Family Medical History / Comment(s): emphysema Medications and Allergies Home Medications Medication Instructions Recorded Confirmed Type HYDROcodone/APAP 7.5-325MG [Beebe 1 tab PO TID 05/02/16 11/17/16 History 7.5-325] Citalopram Hydrobromide [CeleXA] 20 mg PO HS 10/29/16 11/17/16 History Melatonin 10 mg PO HS 10/29/16 11/17/16 History rOPINIRole HCL [Requip] 0.5 mg PO HS 10/29/16 11/17/16 History predniSONE [Deltasone] 40 mg PO DAILY #10 tablet 10/30/16 11/17/16 Rx Polyethylene Glycol 3350 [Miralax] 17 gm PO DAILY PRN 11/17/16 11/17/16 History Allergies Allergy/AdvReac Type Severity Reaction Status Date / Time aspirin Allergy Bleeding Verified 11/17/16 20:15 disorder as a child Physical Exam Vitals: Vital Signs Temp Pulse Pulse Pulse Resp BP BP 11/18/16 07:00 101.0 F H 90 18 117/62 11/17/16 23:47 97.3 F L 88 20 114/65 11/17/16 21:37 87 16 103/59 11/17/16 20:47 102.7 F H 96 17 128/71 11/17/16 20:07 112 H 11/17/16 19:42 102.8 F H 121 H 20 108/67 Pulse Ox 11/18/16 07:00 100 11/17/16 23:47 97 11/17/16 21:37 94 L 11/17/16 20:47 96 11/17/16 20:07 11/17/16 19:42 95 Intake and Output 11/17/16 11/18/16 11/18/16 22:59 06:59 14:59 Output Total 450 Balance -450 Output: Urine 450 Other: Voiding Method Bedside Commode # Voids 1 Weight 60.781 kg Gen: This is a 56-year-old female. She is sitting up in bed and eating breakfast. She appears to be in no acute distress. She is swallowing without any signs of coughing or aspiration. HEENT: Head is atraumatic, normocephalic. Pupils equal, round. Sclerae is anicteric. NECK: Supple. No JVD. No lymphadenopathy. No thyromegaly. LUNGS: Rales in the right upper lung. No intercostal retractions. HEART: Regular rate and rhythm. No murmur. ABDOMEN: Soft. Bowel sounds are present. No masses. No tenderness. EXTREMITIES: No pedal edema. No calf tenderness. Dorsalis pedis +2 bilaterally. NEUROLOGICAL: Patient is awake, alert and oriented x3. Cranial nerves 2 through 12 are grossly intact. Results Results: Laboratory Results WBC 13.3 k/uL (3.8-10.6) H 11/17/16 20:00 RBC 4.71 m/uL (3.80-5.40) 11/17/16 20:00 Hgb 14.7 gm/dL (11.4-16.0) 11/17/16 20:00 Hct 43.8 % (34.0-46.0) 11/17/16 20:00 MCV 93.0 fL (80.0-100.0) D 11/17/16 20:00 MCH 31.3 pg (25.0-35.0) 11/17/16 20:00 MCHC 33.7 g/dL (31.0-37.0) 11/17/16 20:00 RDW 14.8 % (11.5-15.5) 11/17/16 20:00 Plt Count 347 k/uL (150-450) 11/17/16 20:00 Neutrophils % 77 % 11/17/16 20:00 Lymphocytes % 13 % 11/17/16 20:00 Monocytes % 5 % 11/17/16 20:00 Eosinophils % 0 % 11/17/16 20:00 Basophils % 1 % 11/17/16 20:00 Neutrophils # 10.3 k/uL (1.3-7.7) H 11/17/16 20:00 Lymphocytes # 1.8 k/uL (1.0-4.8) 11/17/16 20:00 Monocytes # 0.7 k/uL (0-1.0) 11/17/16 20:00 Eosinophils # 0.1 k/uL (0-0.7) 11/17/16 20:00 Basophils # 0.1 k/uL (0-0.2) 11/17/16 20:00 PT 9.9 sec (9.0-12.0) 11/17/16 20:00 INR 1.0 (<1.2) 11/17/16 20:00 APTT 25.8 sec (22.0-30.0) 11/17/16 20:00 Sodium 129 mmol/L (137-145) L 11/17/16 20:00 Potassium 4.4 mmol/L (3.5-5.1) 11/17/16 20:00 Chloride 95 mmol/L (98-107) L 11/17/16 20:00 Carbon Dioxide 23 mmol/L (22-30) 11/17/16 20:00 Anion Gap 11 mmol/L 11/17/16 20:00 BUN 14 mg/dL (7-17) 11/17/16 20:00 Creatinine 0.90 mg/dL (0.52-1.04) 11/17/16 20:00 Est GFR (MDRD) Af Amer >60 (>60 ml/min/1.73 sqM) 11/17/16 20:00 Est GFR (MDRD) Non-Af >60 (>60 ml/min/1.73 sqM) 11/17/16 20:00 Glucose 103 mg/dL (74-99) H 11/17/16 20:00 Plasma Lactic Acid Fish 1.3 mmol/L (0.7-2.0) 11/17/16 20:00 Calcium 9.2 mg/dL (8.4-10.2) 11/17/16 20:00 Total Bilirubin 0.6 mg/dL (0.2-1.3) 11/17/16 20:00 AST 61 U/L (14-36) H 11/17/16 20:00 ALT 46 U/L (9-52) 11/17/16 20:00 Alkaline Phosphatase 95 U/L (38-126) 11/17/16 20:00 Troponin I 0.012 ng/mL (0.000-0.034) 11/17/16 20:00 Total Protein 7.1 g/dL (6.3-8.2) 11/17/16 20:00 Albumin 3.8 g/dL (3.5-5.0) 11/17/16 20:00 Urine Color Yellow 11/18/16 03:50 Urine Appearance Clear (Clear) 11/18/16 03:50 Urine pH 6.0 (5.0-8.0) 11/18/16 03:50 Ur Specific [place] 1.009 (1.001-1.035) 11/18/16 03:50 Urine Protein Negative (Negative) 11/18/16 03:50 Urine Glucose (UA) Negative (Negative) 11/18/16 03:50 Urine Ketones 1+ (Negative) H 11/18/16 03:50 Urine Blood Trace (Negative) H 11/18/16 03:50 Urine Nitrite Negative (Negative) 11/18/16 03:50 Urine Bilirubin Negative (Negative) 11/18/16 03:50 Urine Urobilinogen <2.0 mg/dL (<2.0) 11/18/16 03:50 Ur Leukocyte Esterase Moderate (Negative) H 11/18/16 03:50 Urine RBC 1 /hpf (0-5) 11/18/16 03:50 Urine WBC 8 /hpf (0-5) H 11/18/16 03:50 Urine Bacteria Rare /hpf (None) H 11/18/16 03:50 Urine Mucus Rare /hpf (None) H 11/18/16 03:50 CBC & Chem 7: 11/17/16 20:00 11/17/16 20:00 Labs: Abnormal Lab Results - Last 24 Hours (Table) 11/17/16 11/17/16 11/18/16 Range/Units 20:00 20:00 03:50 WBC 13.3 H (3.8-10.6) k/uL Neutrophils # 10.3 H (1.3-7.7) k/uL Sodium 129 L (137-145) mmol/L Chloride 95 L (98-107) mmol/L Glucose 103 H (74-99) mg/dL AST 61 H (14-36) U/L Urine Ketones 1+ H (Negative) Urine Blood Trace H (Negative) Ur Leukocyte Esterase Moderate H (Negative) Urine WBC 8 H (0-5) /hpf Urine Bacteria Rare H (None) /hpf Urine Mucus Rare H (None) /hpf Assessment and Plan Plan: This is a 56-year-old female who presented to the hospital with signs of sepsis along with pneumonia. Patient has been started on azithromycin and ceftriaxone. Sputum cultures to be obtained. Blood and urine cultures are in process. Patient had recent observation admission and blood culture shows no growth. No sputum culture was obtained at that time. Regarding splenomegaly, patient will need to be up-to-date on all of her immunizations. Continue supportive care. Further recommendations as patient progresses. The above dictated assessment and findings were discussed with Dr. Willis. The impression and plan of care have been directed as dictated. Zonia Serra nurse practitioner acting as scribe for Dr. Willis.
[2016-11-18 08:42] LABS: Basophils % (A) 0 %; CH 32.2; CHCM 34.2; Eosinophils % (A) 0 %; HCT 41.7 % (34.0-46.0); HDW 2.56; HGB 13.6 gm/dL (11.4-16.0); Luc % (Auto) 2; Lymphocytes # (A) 1.1 k/uL (1.0-4.8); Lymphocytes % (A) 10 %; MCH 30.8 pg (25.0-35.0); MCHC 32.5 g/dL (31.0-37.0); MCV 94.7 fL (80.0-100.0); Mean Platelet Volume 8.5; Monocytes # (A) 0.4 k/uL (0-1.0); Monocytes % (A) 4 %; Neutrophils % (A) 84 %; RBC 4.41 m/uL (3.80-5.40); RDW 14.7 % (11.5-15.5); WBC 10.8 k/uL (3.8-10.6); WBC (Perox) 10.68
[2016-11-18] MEDS: BISACODYL 5 MG TABLET.DR PO SCH (08:46)
[2016-11-18] MEDS: HYDROcodone/APAP 7.5-325MG 1 EACH TAB PO SCH ×3 (08:46→22:29)
[2016-11-18] MEDS: POLYETHYLENE GLYCOL 3350 17 GM POWD.PACK PO SCH (08:48)
[2016-11-18 09:07] LABS: ALT 53 U/L (9-52); AST 71 U/L (14-36); Alkaline Phosphatase 75 U/L (38-126); Anion Gap 7 mmol/L; Blood Urea Nitrogen 11 mg/dL (7-17); Calcium 8.3 mg/dL (8.4-10.2); Carbon Dioxide 20 mmol/L (22-30); Chloride 106 mmol/L (98-107); Glucose 157 mg/dL (74-99); Non-African American GFR(MDRD) >60 (>60 ml/min/1.73 sqM); Sodium 133 mmol/L (137-145); Total Bilirubin 0.4 mg/dL (0.2-1.3); Total Protein 5.7 g/dL (6.3-8.2)
--- NOTE | 2016-11-18 11:53 | P.HPIM ---
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 , pain clinic procedures-cortison inj Past Anesthesia/Blood Transfusion Reactions: No Reported Reaction Past Psychological History: Depression Additional Psychological History / Comment(s): pt stated she is treated for depressionand currently feels well maintained on meds Smoking Status: Current every day smoker Past Alcohol Use History: Daily Additional Past Alcohol Use History / Comment(s): started smoking 1954 smoked 1.5 ppd. She denies any medical marijuana, marijuana, street drug use. She lives at home and her sons live with her. There is a pit bull, Pomeranian and cat in the home. She denies any recent travel. 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 Past Drug Use History: None Reported - Past Family History Father Family Medical History: Cancer Additional Family Medical History / Comment(s): colon cancer Mother Family Medical History: Congestive Heart Failure (CHF) Additional Family Medical History / Comment(s): emphysema Medications and Allergies Home Medications Medication Instructions Recorded Confirmed Type HYDROcodone/APAP 7.5-325MG [[place] 1 tab PO TID 05/02/16 11/17/16 History 7.5-325] Citalopram Hydrobromide [CeleXA] 20 mg PO HS 10/29/16 11/17/16 History Melatonin 10 mg PO HS 10/29/16 11/17/16 History rOPINIRole HCL [Requip] 0.5 mg PO HS 10/29/16 11/17/16 History predniSONE [Deltasone] 40 mg PO DAILY #10 tablet 10/30/16 11/17/16 Rx Polyethylene Glycol 3350 [Miralax] 17 gm PO DAILY PRN 11/17/16 11/17/16 History Allergies Allergy/AdvReac Type Severity Reaction Status Date / Time aspirin Allergy Bleeding Verified 11/17/16 20:15 disorder as a child Physical Exam Vitals: Vital Signs Temp Pulse Pulse Pulse Resp BP BP 11/18/16 08:50 97.5 F L 11/18/16 07:00 101.0 F H 90 18 117/62 11/17/16 23:47 97.3 F L 88 20 114/65 11/17/16 21:37 87 16 103/59 11/17/16 20:47 102.7 F H 96 17 128/71 11/17/16 20:07 112 H 11/17/16 19:42 102.8 F H 121 H 20 108/67 Pulse Ox 11/18/16 08:50 11/18/16 07:00 100 11/17/16 23:47 97 11/17/16 21:37 94 L 11/17/16 20:47 96 11/17/16 20:07 11/17/16 19:42 95 Intake and Output 11/17/16 11/18/16 11/18/16 22:59 06:59 14:59 Output Total 450 Balance -450 Output: Urine 450 Other: Voiding Method Bedside Commode Bedside Commode # Voids 1 1 Weight 60.781 kg - Constitutional General appearance: mild distress - EENT White coated tongue Eyes: PERRLA Ears: bilateral: normal - Neck Neck: normal ROM - Respiratory Respiratory: bilateral: diminished, wheezing - Cardiovascular Rhythm: regular - Gastrointestinal General gastrointestinal: soft - Integumentary Integumentary: normal - Neurologic Neurologic: CNII-XII intact - Musculoskeletal Musculoskeletal: generalized weakness - Psychiatric Psychiatric: A&O x's 3, appropriate affect, intact judgment & insight Results CBC & Chem 7: 11/18/16 08:18 11/18/16 08:18 Labs: Abnormal Lab Results - Last 24 Hours (Table) 11/17/16 11/17/16 11/18/16 Range/Units 20:00 20:00 03:50 WBC 13.3 H (3.8-10.6) k/uL Neutrophils # 10.3 H (1.3-7.7) k/uL Sodium 129 L (137-145) mmol/L Chloride 95 L (98-107) mmol/L Carbon Dioxide (22-30) mmol/L Glucose 103 H (74-99) mg/dL Calcium (8.4-10.2) mg/dL AST 61 H (14-36) U/L ALT (9-52) U/L Total Protein (6.3-8.2) g/dL Albumin (3.5-5.0) g/dL Urine Ketones 1+ H (Negative) Urine Blood Trace H (Negative) Ur Leukocyte Esterase Moderate H (Negative) Urine WBC 8 H (0-5) /hpf Urine Bacteria Rare H (None) /hpf Urine Mucus Rare H (None) /hpf 11/18/16 11/18/16 Range/Units 08:18 08:18 WBC 10.8 H (3.8-10.6) k/uL Neutrophils # 9.0 H (1.3-7.7) k/uL Sodium 133 L (137-145) mmol/L Chloride (98-107) mmol/L Carbon Dioxide 20 L (22-30) mmol/L Glucose 157 H (74-99) mg/dL Calcium 8.3 L (8.4-10.2) mg/dL AST 71 H (14-36) U/L ALT 53 H (9-52) U/L Total Protein 5.7 L (6.3-8.2) g/dL Albumin 2.9 L (3.5-5.0) g/dL Urine Ketones (Negative) Urine Blood (Negative) Ur Leukocyte Esterase (Negative) Urine WBC (0-5) /hpf Urine Bacteria (None) /hpf Urine Mucus (None) /hpf Microbiology - Last 24 Hours (Table) 11/18/16 03:50 Urine Culture - Preliminary Urine,Voided Chest x-ray: report reviewed Thrombosis Risk Factor Assmnt - Choose All That Apply Any of the Below Risk Factors Present?: Yes Each Factor Represents 1 point: Age 41-60 years, Obesity (BMI >25) Other Risk Factors: No Other congenital or acquired thrombophilia - If yes, enter type in comment: No Thrombosis Risk Factor Assessment Total Risk Factor Score: 2 Thrombosis Risk Factor Assessment Level: Low Risk Assessment and Plan Plan: Assessment Community acquired pneumonia right upper lobe with sepsis COPD history of smoking 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 Willis Pulmonology consulted regarding pneumonia possible COPD Patient on Rocephin and Zithromax
[2016-11-18] MEDS ORDERED: NYSTATIN 100,000 UNIT/ML SUSP 500,000 UNIT/5 ML CUP PO SCH (13:00)
[2016-11-18] MEDS: NYSTATIN 100,000 UNIT/ML SUSP 500,000 UNIT/5 ML CUP PO SCH ×3 (13:52→22:23)
--- NOTE | 2016-11-18 15:49 | P.CNPUL ---
History of Present Illness Consult date: 11/18/16 Requesting physician: Estiven Sagastume Reason for consult: pneumonia Chief complaint: Cough and shortness of breath History of present illness: This is a 56-year-old female who was recently admitted about a few weeks ago to [facility], and she was treated for tracheobronchitis, and left arm tenderness with symptoms of COPD exacerbation. Patient was discharged home on tapering dose of steroids and Levaquin for 5 days. Patient was readmitted today with right-sided chest pain for the last 5 days since Tuesday. Patient was also complaining of cough, her cough was productive with yellow phlegm. She also complained of low-grade fever. Upon evaluation in the ER, patient was found to have a significant infiltrate in the right upper lobe. Patient is known to have history of splenectomy and she has been current on pneumonia vaccine, according to the chart she received her Pneumovax and meningococcal vaccine recently. Upon presentation, patient was noted to have a temp of 102.8, she had a bit of leukocytosis, she was tachycardic, and again her chest x-ray is showing a significant infiltrate in the right upper lobe, was not present on the chest x-ray from 10/30/2016. Patient denies any history of TB or TB exposure. Review of Systems Constitutional: Reports anorexia, Reports chills, and chronic fatigue. Eyes: denies blurred vision, denies pain Ears, nose, mouth and throat: Denies headache, Denies sore throat Cardiovascular: No symptoms of angina, no symptoms of palpitations, and no diaphoresis. Respiratory: As noted in the history of the present illness Gastrointestinal: No nausea no vomiting no abdominal pain Genitourinary: No dysuria frequency or urgency Musculoskeletal: Reports low back pain, Denies myalgias Integumentary: Denies any rashes Neurological: No headaches no blurred vision no dizziness Psychiatric: Denies any symptoms of active depression Endocrine: Denies any polyuria, polydipsia, no heat or cold intolerance. Past Medical History Past Medical History: Osteoarthritis (OA) Additional Past Medical History / Comment(s): pt is rt hand dominant. 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 , pain clinic procedures-cortison inj Past Anesthesia/Blood Transfusion Reactions: No Reported Reaction Past Psychological History: Depression Additional Psychological History / Comment(s): pt stated she is treated for depressionand currently feels well maintained on meds Smoking Status: Current every day smoker Past Alcohol Use History: Daily Additional Past Alcohol Use History / Comment(s): started smoking 1954 smoked 1.5 ppd. She denies any medical marijuana, marijuana, street drug use. She lives at home and her sons live with her. There is a pit bull, Pomeranian and cat in the home. She denies any recent travel. 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 Past Drug Use History: None Reported - Past Family History Father Family Medical History: Cancer Additional Family Medical History / Comment(s): colon cancer Mother Family Medical History: Congestive Heart Failure (CHF) Additional Family Medical History / Comment(s): emphysema Medications and Allergies Home Medications Medication Instructions Recorded Confirmed Type HYDROcodone/APAP 7.5-325MG [[place] 1 tab PO TID 05/02/16 11/17/16 History 7.5-325] Citalopram Hydrobromide [CeleXA] 20 mg PO HS 10/29/16 11/17/16 History Melatonin 10 mg PO HS 10/29/16 11/17/16 History rOPINIRole HCL [Requip] 0.5 mg PO HS 10/29/16 11/17/16 History predniSONE [Deltasone] 40 mg PO DAILY #10 tablet 10/30/16 11/17/16 Rx Polyethylene Glycol 3350 [Miralax] 17 gm PO DAILY PRN 11/17/16 11/17/16 History Allergies Allergy/AdvReac Type Severity Reaction Status Date / Time aspirin Allergy Bleeding Verified 11/17/16 20:15 disorder as a child Physical Exam Vitals: Vital Signs Temp Pulse Pulse Pulse Resp BP BP 11/18/16 08:50 97.5 F L 11/18/16 07:00 101.0 F H 90 18 117/62 11/17/16 23:47 97.3 F L 88 20 114/65 11/17/16 21:37 87 16 103/59 11/17/16 20:47 102.7 F H 96 17 128/71 11/17/16 20:07 112 H 11/17/16 19:42 102.8 F H 121 H 20 108/67 Pulse Ox 11/18/16 08:50 11/18/16 07:00 100 11/17/16 23:47 97 11/17/16 21:37 94 L 11/17/16 20:47 96 11/17/16 20:07 11/17/16 19:42 95 Intake and Output 11/18/16 11/18/16 11/18/16 06:59 14:59 22:59 Output Total 450 Balance -450 Output: Urine 450 Other: Voiding Method Bedside Commode Bedside Commode # Voids 1 2 Physical Exam: Revealed a 56-year-old female in no distress. HEENT:[Neck is supple.] [No neck masses.] [No thyromegaly.] [No JVD.] Chest: [Minimal rales noted in the posterior upper aspect of the right lung] Cardiac Exam: [Normal S1 and S2, no S3 gallop, no murmur.] Abdomen: [Soft, nontender, no megaly, no rebound, no guarding, normal bowel sounds.] Extremities: [No clubbing, no edema, no cyanosis.] Neurological Exam: [No focal neurologic deficit.] Results - Laboratory Findings CBC and BMP: 11/18/16 08:18 11/18/16 08:18 PT/INR, D-dimer PT 9.9 sec (9.0-12.0) 11/17/16 20:00 INR 1.0 (<1.2) 11/17/16 20:00 Abnormal lab findings: Abnormal Labs 11/17/16 11/17/16 11/18/16 20:00 20:00 03:50 WBC 13.3 H Neutrophils # 10.3 H Sodium 129 L Chloride 95 L Carbon Dioxide Glucose 103 H Calcium AST 61 H ALT Total Protein Albumin Urine Ketones 1+ H Urine Blood Trace H Ur Leukocyte Esterase Moderate H Urine WBC 8 H Urine Bacteria Rare H Urine Mucus Rare H 11/18/16 11/18/16 08:18 08:18 WBC 10.8 H Neutrophils # 9.0 H Sodium 133 L Chloride Carbon Dioxide 20 L Glucose 157 H Calcium 8.3 L AST 71 H ALT 53 H Total Protein 5.7 L Albumin 2.9 L Urine Ketones Urine Blood Ur Leukocyte Esterase Urine WBC Urine Bacteria Urine Mucus - Diagnostic Findings Chest x-ray: image reviewed (Right upper lobe consolidation is noted consistent with pneumonia) Assessment and Plan Plan: Impression: 1 acute community-acquired pneumonia involving the right upper lobe. Possible sepsis. 2 history of splenectomy, however patient is current on her pneumonia vaccine and a meningococcal vaccine. 3 acute hyponatremia possibly SIADH related secondary to pneumonia. 4 suspect underlying COPD, patient has been a heavy smoker until 4 days ago. Recommendation: I fully agree with the present treatment plan, agree with the choice of antibiotics, bronchodilators, we'll continue to follow. Time with Patient: Greater than 30
[2016-11-18] MEDS: IPRATROPIUM-ALBUTEROL 3 ML NEB INHALATION SCH ×2 (16:51→21:20)
--- NOTE | 2016-11-18 20:35 | P.CON ---
Consult Note - . Consult date: 11/18/16 Assessment/Plan:: This is a 56-year-old female who was recently hospitalized on the observation unit on October 29 through the at which time she was treated for otitis leukocytosis due to tracheobronchitis, left arm tenderness and acute exacerbation of COPD. She was discharged home on tapering dose of steroids and Levaquin for 5 days. Patient states prior to that admission she went to her primary care physician for left arm and left lung pain and was sent into the hospital. She apparently completed a course of antibiotics. She complains of being constipated since she was on the prednisone and antibiotics in the last bowel movement was 2 weeks ago. She states last week that she went to her doctor and she was to take suppositories and MiraLAX. On Tuesday night she states she had some right-sided chest pain woke her at 3 in the morning and lasted for about 5 minutes. It didn't come back at that time but she has had repeated episodes occasionally. She has a cough with sputum production. She has had a fever and chills for the past 1 week. She states she has been in bed for the past 4 days. She has had decreased appetite but is better now. She denies having any diarrhea. Patient does follow with Dr. Robert and undergoes back and neck injections as well as physical therapy for chronic back and neck pain. It is noted that on her last admission in October patient was given pneumo vacs and she was recommended for meningococcal vaccine outpatient due to her history of splenectomy. Patient indicates to me that she has been up-to- date on all her immunizations. Patient states her spleen ruptured when she was 14 years of age and was reason for splenectomy. Patient presented with a temperature of 102.8 and leukocytosis of 13.3. Her pulse was 121 and blood pressure was on the lower side. Sodium was 129. Albumin 3.8, GFR greater than 60. Urinalysis was clear with leukoesterase moderate, bacteria rare, wbc's 8. Chest x-ray shows a right upper lobe pneumonia. Blood culture and urine culture in process. Patient is to provide a sputum culture. Patient also states that she falls frequently due to her knee giving out on her but denies injuries. Please see the consult note is dictated by nurse practitioner Mrs. Zonia Serra. The patient relates that she does not have a history of significant pneumonia in the past. It is noted does have a history of the splenectomy. Currently receiving appropriate antibiotic therapy with third-generation cephalosporin and azithromycin for community acquired pneumonia. This will continue for now. The patient is at risk of developing sepsis from organisms such as Streptococcus pneumoniae. During her recent stay she did receive her Pneumovax. However still needs to have her Haemophilus influenza B and meningiococcus vaccine. If this cannot be arranged her primary care physician' s office should be given before her discharge. Constipation as well she will need to have reactive antibiotic therapy available, routinely Augmentin is given initially taken at the first sign of a fever. In and seek medical attention promptly. With her splenectomy status she does not have the ability to wait for antibiotic therapy because the risk of sepsis. The patient does have the upper lobe pneumonia. If this does not rapidly resolve within need further intervention to ensure that is not a malignancy given the SIADH-like picture at her presentation. Agree with evaluation, assessment and plan as dictated by nurse practitioner Mrs. Zonia Serra.
[2016-11-18] MEDS: CITALOPRAM HYDROBROMIDE 20 MG TAB PO SCH (20:41)
[2016-11-18] MEDS ORDERED: AZITHROMYCIN 500 MG in SODIUM CHLORIDE 0.9% 250 ML IVPB SCH (21:00)
[2016-11-19] MEDS: SODIUM CHLORIDE 0.9% 1,000 ML IV SCH ×2 (04:33→14:13)
[2016-11-19 06:56] LABS: Mycoplasma IgG Antibody (EIA) 1.13 INDEX (<=0.90); Mycoplasma IgM Antibody 0.1 INDEX (<=0.90)
[2016-11-19] MEDS: IPRATROPIUM-ALBUTEROL 3 ML NEB INHALATION SCH ×4 (07:29→20:46)
[2016-11-19] MEDS: BISACODYL 5 MG TABLET.DR PO SCH (08:52)
[2016-11-19] MEDS: POLYETHYLENE GLYCOL 3350 17 GM POWD.PACK PO SCH (08:53)
[2016-11-19] MEDS: HYDROcodone/APAP 7.5-325MG 1 EACH TAB PO SCH ×3 (08:57→22:11)
[2016-11-19] MEDS: NYSTATIN 100,000 UNIT/ML SUSP 500,000 UNIT/5 ML CUP PO SCH ×4 (08:57→22:08)
[2016-11-19] MEDS: NICOTINE 21MG/24HR PATCH TRANSDERM SCH (08:58)
--- NOTE | 2016-11-19 13:22 | P.PN ---
Subjective This is a 56-year-old female who was recently admitted about a few weeks ago to [facility], and she was treated for tracheobronchitis, and left arm tenderness with symptoms of COPD exacerbation. Patient was discharged home on tapering dose of steroids and Levaquin for 5 days. Patient was readmitted today with right-sided chest pain for the last 5 days since Tuesday. Patient was also complaining of cough, her cough was productive with yellow phlegm. She also complained of low-grade fever. Upon evaluation in the ER, patient was found to have a significant infiltrate in the right upper lobe. Patient is known to have history of splenectomy and she has been current on pneumonia vaccine, according to the chart she received her Pneumovax and meningococcal vaccine recently. Upon presentation, patient was noted to have a temp of 102.8, she had a bit of leukocytosis, she was tachycardic, and again her chest x-ray is showing a significant infiltrate in the right upper lobe, was not present on the chest x-ray from 10/30/2016. Patient denies any history of TB or TB exposure. The patient is seen again today 11/19/2016 in follow-up on the regular medical floor. She is awake and alert in no acute distress. She states she is breathing slightly better today as compared to yesterday but still not near her baseline. Continues with a loose productive cough. She is requiring nasal O2 at 2 L/m per nasal cannula to maintain O2 saturations in the 90s. She continues to spike temperatures currently at 101.1. Blood, urine and sputum cultures are pending. Urinary legionella antigen is positive. Mycoplasma pneumonia IgG elevated at 1.13. IgM normal at 0.10. She is currently on ceftriaxone and azithromycin. We will switch her from Rocephin to Levaquin. We 'll repeat a chest x-ray. Objective - Vital Signs Vital signs: Vital Signs Temp 101.1 F H 11/19/16 07:00 Pulse 89 11/19/16 07:00 Resp 20 11/19/16 07:00 BP 95/49 11/19/16 07:00 Pulse Ox 94 L 11/19/16 07:00 Intake & Output 11/18/16 11/19/16 11/19/16 18:59 06:59 18:59 Other: Voiding Method Toilet Toilet Toilet Bedside Commode Bedside Commode # Voids 2 2 - Exam GENERAL EXAM: Alert, fairly comfortable in no apparent distress. HEAD: Normocephalic. EYES: Normal reaction of pupils, equal size. NOSE: Clear with pink turbinates. THROAT: No erythema or exudates. NECK: No masses, no JVD. CHEST: No chest wall deformity. LUNGS: Equal air entry with GERD rhonchi more so on the right lung. Diminished.. CVS: S1 and S2 normal with no audible murmurs, regular rhythm. ABDOMEN: No hepatosplenomegaly, normal bowel sounds, no guarding or rigidity. SPINE: No scoliosis or deformity SKIN: No rashes CENTRAL NERVOUS SYSTEM: No focal deficits, tone is normal in all 4 extremities. Extremities: There is no peripheral edema. No clubbing, no cyanosis. Peripheral pulses are intact. - Labs CBC & Chem 7: 11/18/16 08:18 11/18/16 08:18 Labs: Abnormal Lab Results - Last 24 Hours (Table) 11/18/16 11/18/16 Range/Units 08:18 11:50 Urine Legionella Ag DETECTED H (Not detected) Mycoplasma pneumon IgG 1.13 H (<=0.90) INDEX Microbiology - Last 24 Hours (Table) 11/18/16 10:45 Gram Stain - Preliminary Sputum 11/17/16 20:00 Blood Culture - Preliminary Blood No Growth after 24 hours 11/18/16 03:50 Urine Culture - Preliminary Urine,Voided Assessment and Plan Plan: Impression: #1 Acute right upper lobe pneumonia in a patient found to be positive for urine Legionella antigen. #2 History of splenectomy following splenic rupture at age 14. The patient states she is up-to-date on her pneumonia and meningococcal vaccines. #3 Acute hyponatremia suspect SIADH secondary to the pneumonia. Sodium improved today 133. #4 Chronic and ongoing tobacco dependence with suspected component of chronic obstructive pulmonary disease. #5 Chronic pain syndrome. #6 Osteoarthritis. Plan: The patient was seen and evaluated by Dr. Lara. Based on her Legionella positive urine antigen we will switch her from Rocephin to Levaquin and azithromycin. Infectious disease is on the case as well. We'll repeat her chest x-ray. We'll monitor her closely based on the fact that she has significant pneumonia and history of splenectomy. We will continue to follow and make further recommendations based on her clinical status.
--- NOTE | 2016-11-19 13:44 | XR ---
EXAMINATION TYPE: XR chest 1V DATE OF EXAM: 11/19/2016 CLINICAL HISTORY: Right upper lobe pneumonia progress study. TECHNIQUE: Single AP portable upright view of the chest is obtained. COMPARISON: Chest x-ray from 2 days earlier FINDINGS: There is persistent right upper lobe lateral consolidation felt slightly more prominent. N ew silhouetting of right minor fissure is present. Left lung is clear. No new pleural effusion or pne umothorax is identified. Cardiac silhouette size is stable and within normal limits. Visualized osseo us structures are intact IMPRESSION: Slight interval worsening in right upper lobe inferior lateral aspect pneumonia
[2016-11-19] MEDS: LEVOFLOXACIN 750 MG TAB PO SCH (14:13)
[2016-11-19] MEDS: ACETAMINOPHEN TAB 325 MG TAB PO PRN (14:19)
[2016-11-19 14:46] LABS: Basophils % (A) 0 %; CH 31.6; CHCM 33.4; Eosinophils # (A) 0.1 k/uL (0-0.7); Eosinophils % (A) 1 %; HCT 38.2 % (34.0-46.0); HDW 2.67; HGB 12.4 gm/dL (11.4-16.0); Luc # (Auto) 0.31; Luc % (Auto) 4; Lymphocytes # (A) 2.2 k/uL (1.0-4.8); Lymphocytes % (A) 24 %; MCH 30.9 pg (25.0-35.0); MCHC 32.4 g/dL (31.0-37.0); MCV 95.3 fL (80.0-100.0); Mean Platelet Volume 8.4; Monocytes # (A) 0.4 k/uL (0-1.0); Monocytes % (A) 5 %; Neutrophils # (A) 5.9 k/uL (1.3-7.7); Neutrophils % (A) 66 %; RBC 4.01 m/uL (3.80-5.40); RDW 14.3 % (11.5-15.5); WBC 8.9 k/uL (3.8-10.6); WBC (Perox) 9.47
[2016-11-19 15:00] LABS: ALT 44 U/L (9-52); AST 58 U/L (14-36); Alkaline Phosphatase 75 U/L (38-126); Anion Gap 6 mmol/L; Blood Urea Nitrogen 9 mg/dL (7-17); Calcium 8.3 mg/dL (8.4-10.2); Carbon Dioxide 28 mmol/L (22-30); Chloride 102 mmol/L (98-107); Glucose 121 mg/dL (74-99); Non-African American GFR(MDRD) >60 (>60 ml/min/1.73 sqM); Potassium 4.2 mmol/L (3.5-5.1); Sodium 136 mmol/L (137-145); Total Bilirubin 0.2 mg/dL (0.2-1.3); Total Protein 5.1 g/dL (6.3-8.2)
--- NOTE | 2016-11-19 17:56 | PN ---
PROGRESS NOTE DATE OF SERVICE: 11/19/2016 I am covering for Dr. Estiven Sagastume. This 56-year-old woman was admitted with COPD, acute exacerbation. She also had right upper lobe pneumonia, possibly legionella pneumonia. She is on broad-spectrum IV antibiotics. The patient is on Levaquin and Zithromax. Pulmonary and Infectious Disease are following the patient closely. Past medical history reviewed. REVIEW OF SYSTEMS: CARDIOVASCULAR SYSTEM: No angina, palpitations. RESPIRATION: As mentioned earlier. GI: No nausea, vomiting. : No dysuria, retention. NERVOUS SYSTEM: No numbness or weakness. CURRENT MEDICATIONS: Current medications are reviewed and include: 1. Tylenol p.r.n. 2. [place] 7.5 q.6 p.r.n. 3. Zithromax 500 mg daily. 4. Dulcolax. 5. Celexa. 6. Levaquin 750 mg daily. 7. Melatonin. 8. Morphine sulfate. 9. Narcan. 10.Habitrol 14. 11.Zofran. 12.Requip. PHYSICAL EXAMINATION: Patient is alert, oriented x3. Pulse 89, blood pressure 95/49, respiration 20, temperature 101.1, pulse ox 94% on 2 L. HEENT: Conjunctivae normal. Oral mucosa moist. NECK: No jugular venous distention. No carotid bruit. No lymph node enlargement. CARDIOVASCULAR: S1, S2 muffled. RESPIRATORY: Breath sounds diminished at the bases. Bilateral scattered rhonchi and crackles. Expiratory wheezing also present. ABDOMEN: Soft, nontender. No mass palpable. LEGS: No edema. No swelling. NERVOUS SYSTEM: Higher functions as mentioned earlier. Moves all 4 limbs. No focal motor or sensory deficit. LYMPHATICS: No lymph node palpable in neck, axillae or groin. SKIN: No ulcer, rash, bleeding. LABS: WBC 8.9, hemoglobin 12.4, sodium 136. Albumin is 2.6. Legionella antibody is positive. ASSESSMENT: 1. Chronic obstructive pulmonary disease, acute exacerbation, with right upper lobe pneumonia, possibly acute legionella pneumonia. 2. History of splenectomy after traumatic injury. 3. Increased white count. 4. Hyponatremia. 5. History of degenerative joint disease. 6. History of cholecystectomy. 7. Depression. RECOMMENDATIONS AND DISCUSSION: In this 56-year-old woman who presented with multiple complex medical issues, we will monitor the patient closely, continue with current medications, continue with symptomatic treatment. Continue with the bronchodilators and empiric antibiotics. Monitor closely. Closely follow with Infectious Disease as well as Pulmonary. Guarded prognosis. Further recommendations to follow. MMODL / IJN: [id number] /
--- NOTE | 2016-11-19 18:16 | P.PN ---
Subjective Principal diagnosis: Pneumonia This is a 56-year-old female who was recently hospitalized on the observation unit on October 29 through the at which time she was treated for otitis leukocytosis due to tracheobronchitis, left arm tenderness and acute exacerbation of COPD. She was discharged home on tapering dose of steroids and Levaquin for 5 days. Patient states prior to that admission she went to her primary care physician for left arm and left lung pain and was sent into the hospital. She apparently completed a course of antibiotics. She complains of being constipated since she was on the prednisone and antibiotics in the last bowel movement was 2 weeks ago. She states last week that she went to her doctor and she was to take suppositories and MiraLAX. On Tuesday night she states she had some right-sided chest pain woke her at 3 in the morning and lasted for about 5 minutes. It didn't come back at that time but she has had repeated episodes occasionally. She has a cough with sputum production. She has had a fever and chills for the past 1 week. She states she has been in bed for the past 4 days. She has had decreased appetite but is better now. She denies having any diarrhea. Patient does follow with Dr. Robert and undergoes back and neck injections as well as physical therapy for chronic back and neck pain. It is noted that on her last admission in October patient was given pneumo vacs and she was recommended for meningococcal vaccine outpatient due to her history of splenectomy. Patient indicates to me that she has been up-to- date on all her immunizations. Patient states her spleen ruptured when she was 14 years of age and was reason for splenectomy. Patient presented with a temperature of 102.8 and leukocytosis of 13.3. Her pulse was 121 and blood pressure was on the lower side. Sodium was 129. Albumin 3.8, GFR greater than 60. Urinalysis was clear with leukoesterase moderate, bacteria rare, wbc's 8. Chest x-ray shows a right upper lobe pneumonia. Blood culture and urine culture in process. Patient is to provide a sputum culture. Patient also states that she falls frequently due to her knee giving out on her but denies injuries. Today the patient relates he is feeling better. Her fevers resolved. She has less shortness of breath. Cough is improving. Has developed a lesion On her upper lip that's painful. Objective - Vital Signs Vital signs: Vital Signs Temp 97.5 F L 11/19/16 15:00 Pulse 85 11/19/16 15:00 Resp 20 11/19/16 17:13 BP 85/54 11/19/16 15:00 Pulse Ox 95 11/19/16 15:00 Intake & Output 11/18/16 11/19/16 11/19/16 18:59 06:59 18:59 Other: Voiding Method Toilet Toilet Toilet Bedside Commode Bedside Commode # Voids 2 2 1 - Exam Gen: This is a 56-year-old female. She is sitting up in bed and eating breakfast. She appears to be in no acute distress. She is swallowing without any signs of coughing or aspiration. HEENT: Head is atraumatic, normocephalic. Pupils equal, round. Sclerae is anicteric. Small cluster of vesicles on the upper lip that are tender NECK: Supple. No JVD. No lymphadenopathy. No thyromegaly. LUNGS: Symmetrical air entry is noted. There are crackles in the posterior right upper zone. Expiratory wheezes are scattered but improved. HEART: Regular rate and rhythm. No murmur. ABDOMEN: Soft. Bowel sounds are present. No masses. No tenderness. EXTREMITIES: No pedal edema. No calf tenderness. Dorsalis pedis +2 bilaterally. NEUROLOGICAL: Patient is awake, alert and oriented x3. - Labs CBC & Chem 7: 11/19/16 14:28 11/19/16 14:28 Labs: Abnormal Lab Results - Last 24 Hours (Table) 11/18/16 11/18/16 11/19/16 Range/Units 08:18 11:50 14:28 Sodium 136 L (137-145) mmol/L Glucose 121 H (74-99) mg/dL Calcium 8.3 L (8.4-10.2) mg/dL AST 58 H (14-36) U/L Total Protein 5.1 L (6.3-8.2) g/dL Albumin 2.6 L (3.5-5.0) g/dL Urine Legionella Ag DETECTED H (Not detected) Mycoplasma pneumon IgG 1.13 H (<=0.90) INDEX Microbiology - Last 24 Hours (Table) 11/18/16 03:50 Urine Culture - Final Urine,Voided 11/18/16 10:45 Gram Stain - Preliminary Sputum 11/17/16 20:00 Blood Culture - Preliminary Blood No Growth after 24 hours Laboratory Results WBC 8.9 k/uL (3.8-10.6) 11/19/16 14:28 RBC 4.01 m/uL (3.80-5.40) 11/19/16 14:28 Hgb 12.4 gm/dL (11.4-16.0) 11/19/16 14:28 Hct 38.2 % (34.0-46.0) 11/19/16 14:28 MCV 95.3 fL (80.0-100.0) 11/19/16 14:28 MCH 30.9 pg (25.0-35.0) 11/19/16 14:28 MCHC 32.4 g/dL (31.0-37.0) 11/19/16 14:28 RDW 14.3 % (11.5-15.5) 11/19/16 14:28 Plt Count 351 k/uL (150-450) 11/19/16 14:28 Neutrophils % 66 % 11/19/16 14:28 Lymphocytes % 24 % 11/19/16 14:28 Monocytes % 5 % 11/19/16 14:28 Eosinophils % 1 % 11/19/16 14:28 Basophils % 0 % 11/19/16 14:28 Neutrophils # 5.9 k/uL (1.3-7.7) 11/19/16 14:28 Lymphocytes # 2.2 k/uL (1.0-4.8) 11/19/16 14:28 Monocytes # 0.4 k/uL (0-1.0) 11/19/16 14:28 Eosinophils # 0.1 k/uL (0-0.7) 11/19/16 14:28 Basophils # 0.0 k/uL (0-0.2) 11/19/16 14:28 PT 9.9 sec (9.0-12.0) 11/17/16 20:00 INR 1.0 (<1.2) 11/17/16 20:00 APTT 25.8 sec (22.0-30.0) 11/17/16 20:00 Sodium 136 mmol/L (137-145) L 11/19/16 14:28 Potassium 4.2 mmol/L (3.5-5.1) 11/19/16 14:28 Chloride 102 mmol/L (98-107) 11/19/16 14:28 Carbon Dioxide 28 mmol/L (22-30) 11/19/16 14:28 Anion Gap 6 mmol/L 11/19/16 14:28 BUN 9 mg/dL (7-17) 11/19/16 14:28 Creatinine 0.68 mg/dL (0.52-1.04) 11/19/16 14:28 Est GFR (MDRD) Af Amer >60 (>60 ml/min/1.73 sqM) 11/19/16 14:28 Est GFR (MDRD) Non-Af >60 (>60 ml/min/1.73 sqM) 11/19/16 14:28 Glucose 121 mg/dL (74-99) H 11/19/16 14:28 Plasma Lactic Acid Fish 1.3 mmol/L (0.7-2.0) 11/17/16 20:00 Calcium 8.3 mg/dL (8.4-10.2) L 11/19/16 14:28 Total Bilirubin 0.2 mg/dL (0.2-1.3) 11/19/16 14:28 AST 58 U/L (14-36) H 11/19/16 14:28 ALT 44 U/L (9-52) 11/19/16 14:28 Alkaline Phosphatase 75 U/L (38-126) 11/19/16 14:28 Troponin I 0.012 ng/mL (0.000-0.034) 11/17/16 20:00 Total Protein 5.1 g/dL (6.3-8.2) L 11/19/16 14:28 Albumin 2.6 g/dL (3.5-5.0) L 11/19/16 14:28 Urine Color Yellow 11/18/16 03:50 Urine Appearance Clear (Clear) 11/18/16 03:50 Urine pH 6.0 (5.0-8.0) 11/18/16 03:50 Ur Specific [place] 1.009 (1.001-1.035) 11/18/16 03:50 Urine Protein Negative (Negative) 11/18/16 03:50 Urine Glucose (UA) Negative (Negative) 11/18/16 03:50 Urine Ketones 1+ (Negative) H 11/18/16 03:50 Urine Blood Trace (Negative) H 11/18/16 03:50 Urine Nitrite Negative (Negative) 11/18/16 03:50 Urine Bilirubin Negative (Negative) 11/18/16 03:50 Urine Urobilinogen <2.0 mg/dL (<2.0) 11/18/16 03:50 Ur Leukocyte Esterase Moderate (Negative) H 11/18/16 03:50 Urine RBC 1 /hpf (0-5) 11/18/16 03:50 Urine WBC 8 /hpf (0-5) H 11/18/16 03:50 Urine Bacteria Rare /hpf (None) H 11/18/16 03:50 Urine Mucus Rare /hpf (None) H 11/18/16 03:50 Urine Legionella Ag DETECTED (Not detected) 11/18/16 11:50 Mycoplasma pneumon IgG 1.13 INDEX (<=0.90) H 11/18/16 08:18 Mycoplasma pneumon IgM 0.10 INDEX (<=0.90) 11/18/16 08:18 Microbiology 11/18/16 03:50 Urine,Voided Urine Culture - Final 11/18/16 10:45 Sputum Gram Stain - Preliminary 11/17/16 20:00 Blood Blood Culture - Preliminary No Growth after 24 hours Assessment and Plan (1) Legionella pneumonia Narrative/Plan: The patient relates that she does not have a history of significant pneumonia in the past. It is noted does have a history of the splenectomy. Currently receiving appropriate antibiotic therapy with third-generation cephalosporin and azithromycin for community acquired pneumonia. This will continue for now. The patient is at risk of developing sepsis from organisms such as Streptococcus pneumoniae. During her recent stay she did receive her Pneumovax. However still needs to have her Haemophilus influenza B and meningiococcus vaccine. If this cannot be arranged her primary care physician' s office should be given before her discharge. Constipation as well she will need to have reactive antibiotic therapy available, routinely Augmentin is given initially taken at the first sign of a fever. In and seek medical attention promptly. With her splenectomy status she does not have the ability to wait for antibiotic therapy because the risk of sepsis. The patient does have the upper lobe pneumonia. The laboratory his assisted and there is evidence of Legionella pneumonia as etiology of her current pneumonia. Antimicrobial therapy can be with levofloxacin 750 mg per day. This patient's improving to be switched to oral therapy to complete a seven-day course of therapy. She is developed oral herpes labialis and Valtrex as been requested. Status: Acute
[2016-11-19] MEDS ORDERED: AZITHROMYCIN 500 MG TAB PO SCH (21:00)
[2016-11-19] MEDS: CITALOPRAM HYDROBROMIDE 20 MG TAB PO SCH (21:20)
[2016-11-19] MEDS: MELATONIN 5 MG TABLET PO SCH (21:20)
[2016-11-19] MEDS: valACYclovir 500 MG TAB PO SCH (22:07)
[2016-11-20 07:35] LABS: Basophils % (A) 0 %; CH 30.5; CHCM 32.3; Eosinophils # (A) 0.1 k/uL (0-0.7); Eosinophils % (A) 1 %; HCT 37.6 % (34.0-46.0); HDW 2.65; HGB 12.3 gm/dL (11.4-16.0); Luc # (Auto) 0.25; Luc % (Auto) 4; Lymphocytes # (A) 2.3 k/uL (1.0-4.8); Lymphocytes % (A) 31 %; MCH 31.1 pg (25.0-35.0); MCHC 32.8 g/dL (31.0-37.0); MCV 94.8 fL (80.0-100.0); Mean Platelet Volume 8.2; Monocytes # (A) 0.5 k/uL (0-1.0); Monocytes % (A) 6 %; Neutrophils # (A) 4.2 k/uL (1.3-7.7); Neutrophils % (A) 57 %; RBC 3.96 m/uL (3.80-5.40); RDW 13.9 % (11.5-15.5); WBC 7.4 k/uL (3.8-10.6); WBC (Perox) 7.95
[2016-11-20] MEDS: IPRATROPIUM-ALBUTEROL 3 ML NEB INHALATION SCH ×4 (07:41→20:55)
[2016-11-20 08:19] LABS: ALT 41 U/L (9-52); AST 41 U/L (14-36); Alkaline Phosphatase 68 U/L (38-126); Anion Gap 5 mmol/L; Blood Urea Nitrogen 8 mg/dL (7-17); Calcium 8.3 mg/dL (8.4-10.2); Carbon Dioxide 27 mmol/L (22-30); Chloride 106 mmol/L (98-107); Glucose 81 mg/dL (74-99); Non-African American GFR(MDRD) >60 (>60 ml/min/1.73 sqM); Potassium 4.5 mmol/L (3.5-5.1); Sodium 138 mmol/L (137-145); Total Bilirubin 0.2 mg/dL (0.2-1.3); Total Protein 4.9 g/dL (6.3-8.2)
[2016-11-20] MEDS: SODIUM CHLORIDE 0.9% 1,000 ML IV SCH (09:34)
[2016-11-20] MEDS: HYDROcodone/APAP 7.5-325MG 1 EACH TAB PO SCH ×3 (09:34→21:22)
[2016-11-20] MEDS: NYSTATIN 100,000 UNIT/ML SUSP 500,000 UNIT/5 ML CUP PO SCH ×4 (09:35→21:23)
[2016-11-20] MEDS: NICOTINE 21MG/24HR PATCH TRANSDERM SCH (09:35)
[2016-11-20] MEDS: POLYETHYLENE GLYCOL 3350 17 GM POWD.PACK PO SCH (09:35)
[2016-11-20] MEDS: BISACODYL 5 MG TABLET.DR PO SCH (09:42)
[2016-11-20] MEDS: valACYclovir 500 MG TAB PO SCH (10:44)
[2016-11-20] MEDS: LEVOFLOXACIN 750 MG TAB PO SCH (12:47)
--- NOTE | 2016-11-20 13:30 | P.PN ---
Subjective This is a 56-year-old female who was recently admitted about a few weeks ago to [facility], and she was treated for tracheobronchitis, and left arm tenderness with symptoms of COPD exacerbation. Patient was discharged home on tapering dose of steroids and Levaquin for 5 days. Patient was readmitted today with right-sided chest pain for the last 5 days since Tuesday. Patient was also complaining of cough, her cough was productive with yellow phlegm. She also complained of low-grade fever. Upon evaluation in the ER, patient was found to have a significant infiltrate in the right upper lobe. Patient is known to have history of splenectomy and she has been current on pneumonia vaccine, according to the chart she received her Pneumovax and meningococcal vaccine recently. Upon presentation, patient was noted to have a temp of 102.8, she had a bit of leukocytosis, she was tachycardic, and again her chest x-ray is showing a significant infiltrate in the right upper lobe, was not present on the chest x-ray from 10/30/2016. Patient denies any history of TB or TB exposure. The patient is seen again today 11/19/2016 in follow-up on the regular medical floor. She is awake and alert in no acute distress. She states she is breathing slightly better today as compared to yesterday but still not near her baseline. Continues with a loose productive cough. She is requiring nasal O2 at 2 L/m per nasal cannula to maintain O2 saturations in the 90s. She continues to spike temperatures currently at 101.1. Blood, urine and sputum cultures are pending. Urinary legionella antigen is positive. Mycoplasma pneumonia IgG elevated at 1.13. IgM normal at 0.10. She is currently on ceftriaxone and azithromycin. We will switch her from Rocephin to Levaquin. We 'll repeat a chest x-ray. The patient is seen again today 11/20/2016 in follow-up on the regular medical floor. She is awake and alert in no acute distress. He is feeling better today as compared to yesterday. She did not have a fever this morning for the first time. He is maintaining O2 saturations in the 90s on room air. She's been hemodynamically stable. She is on Levaquin for her legionella upper lobe pneumonia. Objective - Vital Signs Vital signs: Vital Signs Temp 97.5 F L 11/20/16 07:00 Pulse 80 11/20/16 12:38 Resp 22 11/20/16 07:00 BP 107/67 11/20/16 07:00 Pulse Ox 96 11/20/16 07:00 Intake & Output 11/19/16 11/20/16 11/20/16 18:59 06:59 18:59 Intake Total 600 200 Balance 600 200 Intake: Oral 600 200 Other: Voiding Method Toilet Toilet Toilet Bedside Commode Bedside Commode Bedside Commode # Voids 1 2 2 - Exam GENERAL EXAM: Alert, fairly comfortable in no apparent distress. HEAD: Normocephalic. EYES: Normal reaction of pupils, equal size. NOSE: Clear with pink turbinates. THROAT: No erythema or exudates. NECK: No masses, no JVD. CHEST: No chest wall deformity. LUNGS: Equal air entry with GERD rhonchi more so on the right lung. Diminished.. CVS: S1 and S2 normal with no audible murmurs, regular rhythm. ABDOMEN: No hepatosplenomegaly, normal bowel sounds, no guarding or rigidity. SPINE: No scoliosis or deformity SKIN: No rashes CENTRAL NERVOUS SYSTEM: No focal deficits, tone is normal in all 4 extremities. Extremities: There is no peripheral edema. No clubbing, no cyanosis. Peripheral pulses are intact. - Labs CBC & Chem 7: 11/20/16 07:01 11/20/16 07:01 Labs: Abnormal Lab Results - Last 24 Hours (Table) 11/19/16 11/20/16 Range/Units 14:28 07:01 Sodium 136 L (137-145) mmol/L Glucose 121 H (74-99) mg/dL Calcium 8.3 L 8.3 L (8.4-10.2) mg/dL AST 58 H 41 H (14-36) U/L Total Protein 5.1 L 4.9 L (6.3-8.2) g/dL Albumin 2.6 L 2.4 L (3.5-5.0) g/dL Microbiology - Last 24 Hours (Table) 11/18/16 10:45 Gram Stain - Final Sputum Sputum Culture - Final 11/17/16 20:00 Blood Culture - Preliminary Blood No Growth after 48 hours 11/18/16 03:50 Urine Culture - Final Urine,Voided Assessment and Plan Plan: Impression: #1 Acute right upper lobe pneumonia in a patient found to be positive for urine Legionella antigen. #2 History of splenectomy following splenic rupture at age 14. The patient states she is up-to-date on her pneumonia and meningococcal vaccines. #3 Acute hyponatremia suspect SIADH secondary to the pneumonia. Sodium improved today 138. #4 Chronic and ongoing tobacco dependence with suspected component of chronic obstructive pulmonary disease. #5 Chronic pain syndrome. #6 Osteoarthritis. Plan: The patient was seen and evaluated by Dr. Lara. He is improving clinically. We'll repeat a chest x-ray in the a.m. She is now on Levaquin. We'll monitor her closely based on the fact that she has significant pneumonia and history of splenectomy. We will continue to follow and make further recommendations based on her clinical status.
--- NOTE | 2016-11-20 20:04 | P.PN ---
Subjective Principal diagnosis: Pneumonia This is a 56-year-old female who was recently hospitalized on the observation unit on October 29 through the at which time she was treated for otitis leukocytosis due to tracheobronchitis, left arm tenderness and acute exacerbation of COPD. She was discharged home on tapering dose of steroids and Levaquin for 5 days. Patient states prior to that admission she went to her primary care physician for left arm and left lung pain and was sent into the hospital. She apparently completed a course of antibiotics. She complains of being constipated since she was on the prednisone and antibiotics in the last bowel movement was 2 weeks ago. She states last week that she went to her doctor and she was to take suppositories and MiraLAX. On Tuesday night she states she had some right-sided chest pain woke her at 3 in the morning and lasted for about 5 minutes. It didn't come back at that time but she has had repeated episodes occasionally. She has a cough with sputum production. She has had a fever and chills for the past 1 week. She states she has been in bed for the past 4 days. She has had decreased appetite but is better now. She denies having any diarrhea. Patient does follow with Dr. Robert and undergoes back and neck injections as well as physical therapy for chronic back and neck pain. It is noted that on her last admission in October patient was given pneumo vacs and she was recommended for meningococcal vaccine outpatient due to her history of splenectomy. Patient indicates to me that she has been up-to- date on all her immunizations. Patient states her spleen ruptured when she was 14 years of age and was reason for splenectomy. Patient presented with a temperature of 102.8 and leukocytosis of 13.3. Her pulse was 121 and blood pressure was on the lower side. Sodium was 129. Albumin 3.8, GFR greater than 60. Urinalysis was clear with leukoesterase moderate, bacteria rare, wbc's 8. Chest x-ray shows a right upper lobe pneumonia. Blood culture and urine culture in process. Patient is to provide a sputum culture. Patient also states that she falls frequently due to her knee giving out on her but denies injuries. Today the patient relates he is feeling better. Her fevers resolved. She has less shortness of breath. Cough is improving. Has developed a lesion On her upper lip that's painful that is responding well to the Valtrex. Objective - Vital Signs Vital signs: Vital Signs Temp 98.6 F 11/20/16 15:00 Pulse 84 11/20/16 15:58 Resp 22 11/20/16 15:00 BP 111/59 11/20/16 15:00 Pulse Ox 96 11/20/16 15:00 Intake & Output 11/20/16 11/20/16 11/21/16 06:59 18:59 06:59 Intake Total 600 200 Balance 600 200 Intake: Oral 600 200 Other: Voiding Method Toilet Toilet Bedside Commode Bedside Commode # Voids 2 2 - Exam Gen: This is a 56-year-old female. She is sitting up in bed and eating breakfast. She appears to be in no acute distress. She is swallowing without any signs of coughing or aspiration. HEENT: Head is atraumatic, normocephalic. Pupils equal, round. Sclerae is anicteric. Small cluster of vesicles on the upper lip that are tender but improved today NECK: Supple. No JVD. No lymphadenopathy. No thyromegaly. LUNGS: Symmetrical air entry is noted. There are crackles in the posterior right upper zone. Expiratory wheezes are scattered but improved. HEART: Regular rate and rhythm. No murmur. ABDOMEN: Soft. Bowel sounds are present. No masses. No tenderness. EXTREMITIES: No pedal edema. No calf tenderness. Dorsalis pedis +2 bilaterally. NEUROLOGICAL: Patient is awake, alert and oriented x3. - Labs CBC & Chem 7: 11/20/16 07:01 11/20/16 07:01 Labs: Abnormal Lab Results - Last 24 Hours (Table) 11/20/16 Range/Units 07:01 Calcium 8.3 L (8.4-10.2) mg/dL AST 41 H (14-36) U/L Total Protein 4.9 L (6.3-8.2) g/dL Albumin 2.4 L (3.5-5.0) g/dL Microbiology - Last 24 Hours (Table) 11/18/16 10:45 Gram Stain - Final Sputum Sputum Culture - Final 11/17/16 20:00 Blood Culture - Preliminary Blood No Growth after 48 hours Laboratory Results WBC 7.4 k/uL (3.8-10.6) 11/20/16 07:01 RBC 3.96 m/uL (3.80-5.40) 11/20/16 07:01 Hgb 12.3 gm/dL (11.4-16.0) 11/20/16 07:01 Hct 37.6 % (34.0-46.0) 11/20/16 07:01 MCV 94.8 fL (80.0-100.0) 11/20/16 07:01 MCH 31.1 pg (25.0-35.0) 11/20/16 07:01 MCHC 32.8 g/dL (31.0-37.0) 11/20/16 07:01 RDW 13.9 % (11.5-15.5) 11/20/16 07:01 Plt Count 424 k/uL (150-450) 11/20/16 07:01 Neutrophils % 57 % 11/20/16 07:01 Lymphocytes % 31 % 11/20/16 07:01 Monocytes % 6 % 11/20/16 07:01 Eosinophils % 1 % 11/20/16 07:01 Basophils % 0 % 11/20/16 07:01 Neutrophils # 4.2 k/uL (1.3-7.7) 11/20/16 07:01 Lymphocytes # 2.3 k/uL (1.0-4.8) 11/20/16 07:01 Monocytes # 0.5 k/uL (0-1.0) 11/20/16 07:01 Eosinophils # 0.1 k/uL (0-0.7) 11/20/16 07:01 Basophils # 0.0 k/uL (0-0.2) 11/20/16 07:01 PT 9.9 sec (9.0-12.0) 11/17/16 20:00 INR 1.0 (<1.2) 11/17/16 20:00 APTT 25.8 sec (22.0-30.0) 11/17/16 20:00 Sodium 138 mmol/L (137-145) 11/20/16 07:01 Potassium 4.5 mmol/L (3.5-5.1) 11/20/16 07:01 Chloride 106 mmol/L (98-107) 11/20/16 07:01 Carbon Dioxide 27 mmol/L (22-30) 11/20/16 07:01 Anion Gap 5 mmol/L 11/20/16 07:01 BUN 8 mg/dL (7-17) 11/20/16 07:01 Creatinine 0.63 mg/dL (0.52-1.04) 11/20/16 07:01 Est GFR (MDRD) Af Amer >60 (>60 ml/min/1.73 sqM) 11/20/16 07:01 Est GFR (MDRD) Non-Af >60 (>60 ml/min/1.73 sqM) 11/20/16 07:01 Glucose 81 mg/dL (74-99) 11/20/16 07:01 Plasma Lactic Acid Fish 1.3 mmol/L (0.7-2.0) 11/17/16 20:00 Calcium 8.3 mg/dL (8.4-10.2) L 11/20/16 07:01 Total Bilirubin 0.2 mg/dL (0.2-1.3) 11/20/16 07:01 AST 41 U/L (14-36) H 11/20/16 07:01 ALT 41 U/L (9-52) 11/20/16 07:01 Alkaline Phosphatase 68 U/L (38-126) 11/20/16 07:01 Troponin I 0.012 ng/mL (0.000-0.034) 11/17/16 20:00 Total Protein 4.9 g/dL (6.3-8.2) L 11/20/16 07:01 Albumin 2.4 g/dL (3.5-5.0) L 11/20/16 07:01 Urine Color Yellow 11/18/16 03:50 Urine Appearance Clear (Clear) 11/18/16 03:50 Urine pH 6.0 (5.0-8.0) 11/18/16 03:50 Ur Specific [place] 1.009 (1.001-1.035) 11/18/16 03:50 Urine Protein Negative (Negative) 11/18/16 03:50 Urine Glucose (UA) Negative (Negative) 11/18/16 03:50 Urine Ketones 1+ (Negative) H 11/18/16 03:50 Urine Blood Trace (Negative) H 11/18/16 03:50 Urine Nitrite Negative (Negative) 11/18/16 03:50 Urine Bilirubin Negative (Negative) 11/18/16 03:50 Urine Urobilinogen <2.0 mg/dL (<2.0) 11/18/16 03:50 Ur Leukocyte Esterase Moderate (Negative) H 11/18/16 03:50 Urine RBC 1 /hpf (0-5) 11/18/16 03:50 Urine WBC 8 /hpf (0-5) H 11/18/16 03:50 Urine Bacteria Rare /hpf (None) H 11/18/16 03:50 Urine Mucus Rare /hpf (None) H 11/18/16 03:50 Urine Legionella Ag DETECTED (Not detected) H 11/18/16 11:50 Mycoplasma pneumon IgG 1.13 INDEX (<=0.90) H 11/18/16 08:18 Mycoplasma pneumon IgM 0.10 INDEX (<=0.90) 11/18/16 08:18 Microbiology 11/18/16 10:45 Sputum Gram Stain - Final 11/18/16 10:45 Sputum Sputum Culture - Final 11/17/16 20:00 Blood Blood Culture - Preliminary No Growth after 48 hours 11/18/16 03:50 Urine,Voided Urine Culture - Final Assessment and Plan (1) Legionella pneumonia Narrative/Plan: The patient relates that she does not have a history of significant pneumonia in the past. It is noted does have a history of the splenectomy. Currently receiving appropriate antibiotic therapy with third-generation cephalosporin and azithromycin for community acquired pneumonia. This will continue for now. The patient is at risk of developing sepsis from organisms such as Streptococcus pneumoniae. During her recent stay she did receive her Pneumovax. However still needs to have her Haemophilus influenza B and meningiococcus vaccine. If this cannot be arranged her primary care physician' s office should be given before her discharge. Constipation as well she will need to have reactive antibiotic therapy available, routinely Augmentin is given initially taken at the first sign of a fever. In and seek medical attention promptly. With her splenectomy status she does not have the ability to wait for antibiotic therapy because the risk of sepsis. The patient does have the upper lobe pneumonia. The laboratory his assisted and there is evidence of Legionella pneumonia as etiology of her current pneumonia. Antimicrobial therapy can be with levofloxacin 750 mg per day. This patient's improving to be switched to oral therapy to complete a seven-day course of therapy. She is developed oral herpes labialis and Valtrex as been requested and is helping already. Status: Acute
[2016-11-20] MEDS: MELATONIN 5 MG TABLET PO SCH (21:21)
[2016-11-20] MEDS: CITALOPRAM HYDROBROMIDE 20 MG TAB PO SCH (21:21)
[2016-11-21] MEDS: valACYclovir HCL 1,000 MG TABLET PO SCH ×2 (01:53→07:48)
[2016-11-21] MEDS: valACYclovir 500 MG TAB PO SCH (03:23)
[2016-11-21] MEDS: SODIUM CHLORIDE 0.9% 1,000 ML IV SCH ×2 (05:40→07:47)
[2016-11-21 07:27] LABS: Basophils % (A) 1 %; CH 30.4; CHCM 32.5; Eosinophils # (A) 0.2 k/uL (0-0.7); Eosinophils % (A) 2 %; HCT 36.6 % (34.0-46.0); HDW 2.64; HGB 12.2 gm/dL (11.4-16.0); Luc # (Auto) 0.19; Luc % (Auto) 2; Lymphocytes # (A) 2.5 k/uL (1.0-4.8); Lymphocytes % (A) 28 %; MCH 31.4 pg (25.0-35.0); MCHC 33.4 g/dL (31.0-37.0); Mean Platelet Volume 8.3; Monocytes # (A) 0.6 k/uL (0-1.0); Monocytes % (A) 6 %; Neutrophils # (A) 5.6 k/uL (1.3-7.7); Neutrophils % (A) 62 %; RBC 3.89 m/uL (3.80-5.40); WBC 9.1 k/uL (3.8-10.6); WBC (Perox) 9.13
[2016-11-21] MEDS: BISACODYL 5 MG TABLET.DR PO SCH (07:48)
[2016-11-21] MEDS: HYDROcodone/APAP 7.5-325MG 1 EACH TAB PO SCH ×3 (07:48→21:02)
[2016-11-21] MEDS: POLYETHYLENE GLYCOL 3350 17 GM POWD.PACK PO SCH (07:48)
[2016-11-21 07:49] LABS: ALT 50 U/L (9-52); AST 34 U/L (14-36); Alkaline Phosphatase 75 U/L (38-126); Anion Gap 5 mmol/L; Blood Urea Nitrogen 7 mg/dL (7-17); Calcium 8.3 mg/dL (8.4-10.2); Carbon Dioxide 27 mmol/L (22-30); Chloride 106 mmol/L (98-107); Glucose 81 mg/dL (74-99); Non-African American GFR(MDRD) >60 (>60 ml/min/1.73 sqM); Potassium 4.6 mmol/L (3.5-5.1); Sodium 138 mmol/L (137-145); Total Bilirubin 0.2 mg/dL (0.2-1.3); Total Protein 5.1 g/dL (6.3-8.2)
[2016-11-21] MEDS: NICOTINE 21MG/24HR PATCH TRANSDERM SCH (07:49)
[2016-11-21] MEDS: NYSTATIN 100,000 UNIT/ML SUSP 500,000 UNIT/5 ML CUP PO SCH ×4 (07:49→21:02)
--- NOTE | 2016-11-21 08:07 | PN ---
PROGRESS NOTE DATE OF SERVICE: 11/20/2016 I am covering for Dr. Estiven Sagastume. INTERVAL HISTORY: This 56-year-old woman was admitted with COPD and as well as some right upper lobe pneumonia. Had possible Legionella pneumonia. The patient is on IV antibiotics. Infectious Disease and Pulmonary are following the patient closely. The patient recommended Hemophilia influenza B meningeal vaccine also. No chest pain. No palpitations. No fever. PHYSICAL EXAMINATION: On exam, alert and oriented times three. Pulse 89, blood pressure 111/59, respirations are 12. Temperature 98.2, pulse ox 97% on room air. HEENT: Conjunctivae normal. Neck no jugular venous distention. Cardiovascular: S1, S2. Respiratory: Breath sounds diminished at the bases. A few scattered rhonchi and crackles. Abdomen is soft, nontender. Legs: No edema. No swelling. Central nervous system: No focal deficits. LABORATORY DATA: AST is 41, ALT is 41. Other labs are noted. ASSESSMENT: 1. Chronic obstructive pulmonary disease acute exacerbation with right upper lobe pneumonia possibly could be Legionella pneumonia. 2. History of splenectomy following traumatic injury. 3. Increased WBC. 4. Hyponatremia. 5. History of degenerative joint disease. 6. History of cholecystectomy. 7. History of depression. RECOMMENDATIONS AND DISCUSSION: 1. Recommend to continue current medications. 2. Continue broad spectrum IV antibiotics. 3. Closely follow with pulmonary and Infectious Disease. 4. Guarded prognosis. 5. Further recommendations to follow. MMODL / IJN: [id number] /
[2016-11-21] MEDS: IPRATROPIUM-ALBUTEROL 3 ML NEB INHALATION SCH ×4 (09:06→19:58)
[2016-11-21] MEDS: LEVOFLOXACIN 750 MG TAB PO SCH (13:18)
--- NOTE | 2016-11-21 14:08 | P.PN ---
Subjective Principal diagnosis: Acute right upper lobe pneumonia This is a 56-year-old female who was recently admitted about a few weeks ago to [facility], and she was treated for tracheobronchitis, and left arm tenderness with symptoms of COPD exacerbation. Patient was discharged home on tapering dose of steroids and Levaquin for 5 days. Patient was readmitted today with right-sided chest pain for the last 5 days since Tuesday. Patient was also complaining of cough, her cough was productive with yellow phlegm. She also complained of low-grade fever. Upon evaluation in the ER, patient was found to have a significant infiltrate in the right upper lobe. Patient is known to have history of splenectomy and she has been current on pneumonia vaccine, according to the chart she received her Pneumovax and meningococcal vaccine recently. Upon presentation, patient was noted to have a temp of 102.8, she had a bit of leukocytosis, she was tachycardic, and again her chest x-ray is showing a significant infiltrate in the right upper lobe, was not present on the chest x-ray from 10/30/2016. Patient denies any history of TB or TB exposure. The patient is seen again today 11/19/2016 in follow-up on the regular medical floor. She is awake and alert in no acute distress. She states she is breathing slightly better today as compared to yesterday but still not near her baseline. Continues with a loose productive cough. She is requiring nasal O2 at 2 L/m per nasal cannula to maintain O2 saturations in the 90s. She continues to spike temperatures currently at 101.1. Blood, urine and sputum cultures are pending. Urinary legionella antigen is positive. Mycoplasma pneumonia IgG elevated at 1.13. IgM normal at 0.10. She is currently on ceftriaxone and azithromycin. We will switch her from Rocephin to Levaquin. We 'll repeat a chest x-ray. The patient is seen again today 11/20/2016 in follow-up on the regular medical floor. She is awake and alert in no acute distress. He is feeling better today as compared to yesterday. She did not have a fever this morning for the first time. He is maintaining O2 saturations in the 90s on room air. She's been hemodynamically stable. She is on Levaquin for her legionella upper lobe pneumonia. Reevaluated today on 11/21/2016, patient is doing well, occasional cough, no fever, no chills, no hemoptysis, no chest pain. Patient is being treated for Legionella pneumonia, and she was switched to oral Levaquin at 750 mg by mouth daily. She was on Rocephin and Zithromax upon admission. Objective - Vital Signs Vital signs: Vital Signs Temp 98.2 F 11/21/16 07:00 Pulse 84 11/21/16 13:15 Resp 18 11/21/16 12:56 BP 134/80 11/21/16 07:00 Pulse Ox 93 L 11/21/16 07:00 Intake & Output 11/20/16 11/21/16 11/21/16 18:59 06:59 18:59 Intake Total 200 640 Balance 200 640 Intake: Oral 200 640 Other: Voiding Method Toilet Bedside Commode Bedside Commode Bedside Commode # Voids 2 3 - Exam GENERAL EXAM: Alert, fairly comfortable in no apparent distress. HEAD: Normocephalic. EYES: Normal reaction of pupils, equal size. NOSE: Clear with pink turbinates. THROAT: No erythema or exudates. NECK: No masses, no JVD. CHEST: No chest wall deformity. LUNGS: Equal air entry with GERD rhonchi more so on the right lung. Diminished.. CVS: S1 and S2 normal with no audible murmurs, regular rhythm. ABDOMEN: No hepatosplenomegaly, normal bowel sounds, no guarding or rigidity. SPINE: No scoliosis or deformity SKIN: No rashes CENTRAL NERVOUS SYSTEM: No focal deficits, tone is normal in all 4 extremities. Extremities: There is no peripheral edema. No clubbing, no cyanosis. Peripheral pulses are intact. - Labs CBC & Chem 7: 11/21/16 06:44 11/21/16 06:44 Labs: Abnormal Lab Results - Last 24 Hours (Table) 11/21/16 11/21/16 Range/Units 06:44 06:44 Plt Count 574 H (150-450) k/uL Calcium 8.3 L (8.4-10.2) mg/dL Total Protein 5.1 L (6.3-8.2) g/dL Albumin 2.5 L (3.5-5.0) g/dL Microbiology - Last 24 Hours (Table) 11/17/16 20:00 Blood Culture - Preliminary Blood No Growth after 72 hours 11/18/16 10:45 Gram Stain - Final Sputum Sputum Culture - Final Assessment and Plan Plan: #1 Acute right upper lobe pneumonia secondary to Legionella pneumonia #2 History of splenectomy following splenic rupture at age 14. The patient states she is up-to-date on her pneumonia and meningococcal vaccines. #3 Acute hyponatremia suspect SIADH secondary to the pneumonia. Sodium improved today 138. #4 Chronic and ongoing tobacco dependence with suspected component of chronic obstructive pulmonary disease. #5 Chronic pain syndrome. #6 Osteoarthritis. Recommendation: Continue Levaquin, consider discharging the patient home in the next 24 hours. Follow-up on outpatient basis. Follow-up chest x-ray in a.m. Time with Patient: Less than 30
--- NOTE | 2016-11-21 19:18 | PN ---
PROGRESS NOTE DATE OF SERVICE: 11/21/2016 I am covering for Dr. Estiven Sagastume. INTERIM HISTORY: This 56-year-old woman who was admitted with COPD exacerbation as well as Legionella pneumonia on the right side is being closely monitored. No chest pain. No palpitations. No fever. The patient had splenectomy previously. Multiple consultants are following the patient including Dr. Lara and Dr. Willis. No chest pain. No palpitations. No fever. ON EXAM: Alert, oriented x3. Pulse is 97, blood pressure 92/68, respirations 16, temperature 97 degrees. Pulse ox 92% on room air. HEENT is conjunctivae normal. Neck: No jugular venous distention. Cardiovascular: S1, S2 muffled. Respiratory: Breath sounds diminished at the bases. A few scattered rhonchi. No crackles. Abdomen is soft, nontender. Legs no edema. No swelling. Central nervous system: No focal deficits. LABS: At this time shows WBC 9.2, hemoglobin 11.2, platelets are 574, sodium 138, potassium 4.6, albumin 2.5, legionella antigen is positive. ASSESSMENT: 1. Chronic obstructive pulmonary disease acute exacerbation with right upper lobe pneumonia. Possibly legionella pneumonia. 2. History of splenectomy following traumatic injury. 3. Increased WBC. 4. Hyponatremia. 5. History of degenerative joint disease. 6. History of cholecystectomy. 7. History of depression. RECOMMENDATIONS AND DISCUSSION:: Continue current management and symptomatic treatment. Continue current medications. Otherwise, recommend to continue antibiotics. Otherwise increase ambulation. Continue the bronchodilators. Otherwise further recommendation to follow. MMODL / IJN: [id number] /
[2016-11-21] MEDS: MELATONIN 5 MG TABLET PO SCH (20:08)
[2016-11-21] MEDS: CITALOPRAM HYDROBROMIDE 20 MG TAB PO SCH (20:08)
--- NOTE | 2016-11-22 07:25 | XR ---
EXAMINATION TYPE: XR chest 2V DATE OF EXAM: 11/22/2016 COMPARISON: 11/19/2016 INDICATION: Pneumonia TECHNIQUE: Frontal and lateral views of the chest are obtained. FINDINGS: The heart size is normal. The pulmonary vasculature is normal. There is persistent triangular density in the periphery of the right upper lobe at the base. This has some milder infiltrate within the medial aspects of the right upper lobe. Findings can be compatible with pneumonia. Continued follow-up to clearing is recommended. Underlying mass is not excluded.. IMPRESSION: 1. Right upper lobe pneumonia. Continued follow-up is recommended to clearing.
[2016-11-22 07:41] LABS: Basophils # (A) 0.1 k/uL (0-0.2); Basophils % (A) 1 %; CH 30.6; CHCM 32.6; Eosinophils # (A) 0.3 k/uL (0-0.7); Eosinophils % (A) 3 %; HCT 38.3 % (34.0-46.0); HDW 2.56; HGB 12.4 gm/dL (11.4-16.0); Luc # (Auto) 0.19; Luc % (Auto) 2; Lymphocytes # (A) 3.1 k/uL (1.0-4.8); Lymphocytes % (A) 33 %; MCH 30.6 pg (25.0-35.0); MCHC 32.5 g/dL (31.0-37.0); MCV 94.4 fL (80.0-100.0); Monocytes # (A) 0.8 k/uL (0-1.0); Monocytes % (A) 8 %; Neutrophils # (A) 5.2 k/uL (1.3-7.7); Neutrophils % (A) 54 %; RBC 4.06 m/uL (3.80-5.40); RDW 14.1 % (11.5-15.5); WBC 9.7 k/uL (3.8-10.6); WBC (Perox) 9.66
[2016-11-22 07:47] VITALS: BP 130/74; RESP 16; TEMP 96.9
[2016-11-22 08:16] LABS: ALT 42 U/L (9-52); AST 45 U/L (14-36); Alkaline Phosphatase 80 U/L (38-126); Anion Gap 7 mmol/L; Blood Urea Nitrogen 7 mg/dL (7-17); Carbon Dioxide 28 mmol/L (22-30); Chloride 104 mmol/L (98-107); Glucose 79 mg/dL (74-99); Non-African American GFR(MDRD) >60 (>60 ml/min/1.73 sqM); Potassium 5.1 mmol/L (3.5-5.1); Sodium 139 mmol/L (137-145); Total Bilirubin 0.3 mg/dL (0.2-1.3); Total Protein 5.6 g/dL (6.3-8.2)
[2016-11-22] MEDS: IPRATROPIUM-ALBUTEROL 3 ML NEB INHALATION SCH ×2 (08:48→11:54)
[2016-11-22] MEDS: HYDROcodone/APAP 7.5-325MG 1 EACH TAB PO SCH ×2 (09:37→09:44)
[2016-11-22] MEDS: NICOTINE 21MG/24HR PATCH TRANSDERM SCH (09:37)
[2016-11-22] MEDS: NYSTATIN 100,000 UNIT/ML SUSP 500,000 UNIT/5 ML CUP PO SCH ×2 (09:37→12:48)
[2016-11-22] MEDS: POLYETHYLENE GLYCOL 3350 17 GM POWD.PACK PO SCH ×2 (09:37→09:39)
[2016-11-22] MEDS: BISACODYL 5 MG TABLET.DR PO SCH (09:43)
[2016-11-22 09:48] VITALS: PULSE 102
[2016-11-22] MEDS: LEVOFLOXACIN 750 MG TAB PO SCH (12:48)
--- NOTE | 2016-11-22 13:47 | P.PN ---
Subjective Progress note dated 11/22/2016 This is a 56-year-old female admitted with a diagnosis of pneumonia. I she's doing better. There might be a chance that she could be discharged home today. That will depend primarily on her primary doctor Dr. Estiven Sagastume. From the pulmonary standpoint she seems be doing relatively well. Less short of breath. Minimal cough. Not producing any phlegm. No fever no chills. Not coughing up any blood. No nausea vomiting or diarrhea. No chest pain or chest discomfort. Objective - Vital Signs Vital signs: Vital Signs Temp 96.9 F L 11/22/16 07:00 Pulse 102 H 11/22/16 09:48 Resp 16 11/22/16 07:00 BP 130/74 11/22/16 07:00 Pulse Ox 90 L 11/22/16 09:48 Intake & Output 11/21/16 11/22/16 11/22/16 18:59 06:59 18:59 Intake Total 520 Balance 520 Weight 60.781 kg Intake: Oral 520 Other: Voiding Method Bedside Commode Bedside Commode # Voids 2 2 - Exam No acute distress, oriented 3. HEENT examination is grossly unremarkable. Mucous membranes are moist. No oral lesions. Neck supple. Full range of motion. No adenopathy. Neck veins are flat. Cardiovascular examination reveals regular rhythm rate. S1-S2 normal. No S3- S4 or murmur. Lungs reveal a few scattered rhonchi. No wheezes or crackles. Breath sounds are equal. Abdomen soft bowel sounds are heard. No masses or tenderness. Extremities are intact. No cyanosis clubbing or edema. Skin is without rash. Neurologic examination is nonfocal. - Labs CBC & Chem 7: 11/22/16 07:06 11/22/16 07:06 Labs: Abnormal Lab Results - Last 24 Hours (Table) 11/22/16 11/22/16 Range/Units 07:06 07:06 Plt Count 727 H (150-450) k/uL AST 45 H (14-36) U/L Total Protein 5.6 L (6.3-8.2) g/dL Albumin 2.8 L (3.5-5.0) g/dL Microbiology - Last 24 Hours (Table) 11/17/16 20:00 Blood Culture - Preliminary Blood No Growth after 96 hours Assessment and Plan (1) Community acquired bacterial pneumonia Status: Acute (2) Legionella pneumonia Status: Acute (3) Cholelithiasis Status: Acute (4) Enteritis Status: Acute (5) History of splenectomy Status: Acute Plan: Plan dated 11/22/2016 The patient seemed to do relatively well. We'll continue with the current treatment regimen. The patient feels better. Likely discharge either today or tomorrow. We'll leave that up to the primary service. We did give her our card. She should follow-up with Dr. Lara in the office post discharge. No additional recommendations are made. Prognosis is guarded. Time with Patient: Less than 30
--- NOTE | 2016-11-22 17:15 | P.DS ---
Providers Date of admission: 11/17/16 20:56 Attending physician: Estiven Sagastume Consults: 11/17/16 21:23 Consult Physician Routine Consulting Provider: Woodrow Willis Consult Reason/Comments: CAP Do you want consulting provider notified?: Yes, Notify in am 11/18/16 11:44 Consult Physician Urgent Consulting Provider: Miguelina Lala Consult Reason/Comments: pneumonia Do you want consulting provider notified?: Yes Primary care physician: Estiven Sagastume Hospital Course: This 56 old woman with a past medical history multiple medical problems was admitted with COPD acute exacerbation as well as right upper lobe pneumonia. Legionella antigen was positive. Patient was treated with broad-spectrum IV antibiotics for Legionella pneumonia. Patient was seen by infectious diseases and pulmonology. Patient improved significantly. Patient be discharged in a stable condition with guarded prognosis. Total time taken 35 minutes. On exam vitals stable. Cardio S1 and S2 normal. Respirator system few rhonchi. Abdomen soft nontender. Nervous system no focal deficit. Final diagnosis 1. COPD acute exacerbation with a right upper lobe pneumonia with the Legionella pneumonia. 2. History of splenectomy following traumatic injury. 3. Increased WBC. 4. Hyponatremia. 5. History of DJD. 6. History of cholecystectomy. 7. History of depression. Patient Condition at Discharge: Stable Plan - Discharge Summary New Discharge Prescriptions: New Levofloxacin [Levaquin] 750 mg PO Q24H #7 tab Nicotine 21Mg/24Hr Patch [Habitrol] 1 patch TRANSDERM DAILY #30 patch Nystatin 100,000 Unit/ml Susp [Mycostatin Oral Susp] 5 ml PO QID #140 ml Ipratropium-Albuterol Nebulize [Duoneb 0.5 mg-3 mg/3 ml Soln] 3 ml INHALATION RT-QID #120 neb Continue HYDROcodone/APAP 7.5-325MG [[place] 7.5-325] 1 tab PO TID Citalopram Hydrobromide [CeleXA] 20 mg PO HS rOPINIRole HCL [Requip] 0.5 mg PO HS Melatonin 10 mg PO HS Polyethylene Glycol 3350 [Miralax] 17 gm PO DAILY PRN PRN Reason: Constipation Discharge Medication List HYDROcodone/APAP 7.5-325MG [[place] 7.5-325] 1 tab PO TID 05/02/16 [History] Citalopram Hydrobromide [CeleXA] 20 mg PO HS 10/29/16 [History] Melatonin 10 mg PO HS 10/29/16 [History] rOPINIRole HCL [Requip] 0.5 mg PO HS 10/29/16 [History] Polyethylene Glycol 3350 [Miralax] 17 gm PO DAILY PRN 11/17/16 [History] Ipratropium-Albuterol Nebulize [Duoneb 0.5 mg-3 mg/3 ml Soln] 3 ml INHALATION RT -QID #120 neb 11/22/16 [Rx] Levofloxacin [Levaquin] 750 mg PO Q24H #7 tab 11/22/16 [Rx] Nicotine 21Mg/24Hr Patch [Habitrol] 1 patch TRANSDERM DAILY #30 patch 11/22/16 [ Rx] Nystatin 100,000 Unit/ml Susp [Mycostatin Oral Susp] 5 ml PO QID #140 ml [Rx] Follow up Appointment(s)/Referral(s): Estiven Sagastume MD [Primary Care Provider] - 11/25/16 9:30 am Vilma Lara MD [STAFF PHYSICIAN] - 12/02/16 9:30 am Patient Instructions/Handouts: Community Acquired Pneumonia (DC) Activity/Diet/Wound Care/Special Instructions: Regular diet. NO smoking, cessation information given. Nebulizer machine and supplies delivered to pt. Discharge Disposition: HOME SELF-CARE
== END 2016-11-22 15:08 | disposition home or self-care (01) | DRG 871 ==
LOC: EC 19:35 → 4MS4W 20:56
PROVIDERS: ADMIT Family Medicine; ATTEND Family Medicine
DX: A41.9 Sepsis, unspecified organism (principal); A48.1 Legionnaires' disease; E22.2 Syndrome of inappropriate secretion of antidiuretic hormone; B37.0 Candidal stomatitis; J18.9 Pneumonia, unspecified organism; F11.20 Opioid dependence, uncomplicated; J44.0 Chronic obstructive pulmonary disease with (acute) lower respiratory infection; J44.1 Chronic obstructive pulmonary disease with (acute) exacerbation; G89.4 Chronic pain syndrome; M54.2 Cervicalgia; M54.9 Dorsalgia, unspecified; F17.200 Nicotine dependence, unspecified, uncomplicated; F32.9 Major depressive disorder, single episode, unspecified; K59.03 Drug induced constipation; T38.0X5A Adverse effect of glucocorticoids and synthetic analogues, initial encounter; R29.6 Repeated falls; M16.0 Bilateral primary osteoarthritis of hip; K80.20 Calculus of gallbladder without cholecystitis without obstruction; Z79.899 Other long term (current) drug therapy; Z79.52 Long term (current) use of systemic steroids; Z88.6 Allergy status to analgesic agent; Z82.5 Family history of asthma and other chronic lower respiratory diseases; Z82.49 Family history of ischemic heart disease and other diseases of the circulatory system; Z87.19 Personal history of other diseases of the digestive system; Z90.49 Acquired absence of other specified parts of digestive tract; Z90.81 Acquired absence of spleen; Z80.0 Family history of malignant neoplasm of digestive organs
CPT/HCPCS: 36415; 71010; 71020; 80053; 81001; 83605; 84484; 85025; 85610; 85730; 86738; 87040; 87070; 87086; 87205; 87449; 93005; 94640; 94760; 96360; 96361; 96365; 99291

== ENCOUNTER → 2016-11-25 | Outpatient (CLI) | payer OTHER ==
--- NOTE | 2016-11-25 11:29 | XR ---
EXAMINATION TYPE: XR chest 2V DATE OF EXAM: 11/25/2016 COMPARISON: 11/22/2016 HISTORY: Shortness of breath TECHNIQUE: Frontal and lateral views of the chest are obtained. FINDINGS: Scattered senescent parenchymal changes noted. Hyperinflation compatible with COPD. Persistent but improving right upper lobe infiltrate felt to reflect improving pneumonia. Continued f ollow-up advised. Heart size is stable. Mediastinal structures are stable and grossly unremarkable. No evidence for hilar prominence. Degenerative changes dorsal spine. IMPRESSION: 1. Persistent but improving right upper lobe infiltrate felt to reflect improving pneumonia. Continue d follow-up advised.
== END | disposition home or self-care (01) ==
LOC: RADXRMAIN 10:48
PROVIDERS: ATTEND Physician Assistant
DX: J18.9 Pneumonia, unspecified organism (principal)
CPT/HCPCS: 71020

== ENCOUNTER 2016-12-21 12:21 | Emergency (ER) | payer OTHER ==
[2016-12-21 12:55] VITALS: RESP 18
--- NOTE | 2016-12-21 13:42 | ED ---
General Adult HPI - General Chief complaint: Chest Pain Stated complaint: chest pain left arm numbness Time Seen by Provider: 12/21/16 13:08 Source: patient, RN notes reviewed, old records reviewed Mode of arrival: ambulatory Limitations: physical limitation - History of Present Illness Initial comments: 56-year-old female with recent diagnosis of pneumonia presents for evaluation of left-sided chest pain. Patient describes pain is sharp in nature. Constant. Pain is worse with movement and with cough. Patient states her pneumonia was on the right and her current pain is on the left. It has been present for the past 3 weeks. Pain is unchanged with exercise. She denies difficulty breathing. Denies central radiating chest pain. Denies fever or chills. Denies productive cough. She's has had cough, and is currently in the process of quitting tobacco. - Related Data Home Medications Medication Instructions Recorded Confirmed HYDROcodone/APAP 7.5-325MG [[place] 1 tab PO TID 05/02/16 12/21/16 7.5-325] Citalopram Hydrobromide [CeleXA] 20 mg PO HS 10/29/16 12/21/16 Melatonin 10 mg PO HS 10/29/16 12/21/16 rOPINIRole HCL [Requip] 0.5 mg PO HS 10/29/16 12/21/16 Polyethylene Glycol 3350 [Miralax] 17 gm PO DAILY PRN 11/17/16 12/21/16 Previous Rx's Medication Instructions Recorded Ipratropium-Albuterol Nebulize 3 ml INHALATION RT-QID #120 neb 11/22/16 [Duoneb 0.5 mg-3 mg/3 ml Soln] Nicotine 21Mg/24Hr Patch [Habitrol] 1 patch TRANSDERM DAILY #30 patch 11/22/16 Allergies Allergy/AdvReac Type Severity Reaction Status Date / Time aspirin Allergy Bleeding Verified 12/21/16 13:42 disorder as a child Review of Systems ROS Statement: Those systems with pertinent positive or pertinent negative responses have been documented in the HPI. ROS Other: All systems not noted in ROS Statement are negative. Past Medical History Past Medical History: Osteoarthritis (OA) Additional Past Medical History / Comment(s): pt is rt hand dominant. 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 , pain clinic procedures-cortison inj Past Anesthesia/Blood Transfusion Reactions: No Reported Reaction Past Psychological History: Depression Smoking Status: Former smoker Past Alcohol Use History: Occasional Past Drug Use History: None Reported - Past Family History Father Family Medical History: Cancer Additional Family Medical History / Comment(s): colon cancer Mother Family Medical History: Congestive Heart Failure (CHF) Additional Family Medical History / Comment(s): emphysema General Exam Limitations: no limitations General appearance: alert, in no apparent distress Head exam: Present: atraumatic, normocephalic Eye exam: Present: normal appearance, PERRL ENT exam: Present: normal exam, normal oropharynx Neck exam: Present: normal inspection. Absent: tenderness, meningismus Respiratory exam: Present: normal lung sounds bilaterally, other ( left Lateral superior tenderness to palpation). Absent: respiratory distress Cardiovascular Exam: Present: regular rate, normal rhythm GI/Abdominal exam: Present: soft. Absent: distended, tenderness Extremities exam: Present: normal inspection, full ROM, normal capillary refill. Absent: pedal edema Neurological exam: Present: alert, oriented X3, CN II-XII intact. Absent: motor sensory deficit Psychiatric exam: Present: normal affect, normal mood Skin exam: Present: warm, dry, intact. 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 This pain is reproducible on examination. She's had this pain for several months. She did have a recent history of pneumonia, chest x-ray shows small residual right upper pneumonia, this does not fit the patient's pain complaint and is resolving. D-dimer is obtained, this is negative. Platelets are elevated but they are down trending from previous admission. Patient will follow-up with both her leaf tinner and her lung doctor regarding this sharp reproducible anterior chest pain. - Lab Data Result diagrams: 12/21/16 13:10 12/21/16 13:10 Lab Results 12/21/16 12/21/16 12/21/16 Range/Units 13:10 13:10 13:10 WBC 11.4 H (3.8-10.6) k/uL RBC 4.74 (3.80-5.40) m/uL Hgb 15.2 (11.4-16.0) gm/dL Hct 47.0 H (34.0-46.0) % MCV 99.0 (80.0-100.0) fL MCH 32.1 (25.0-35.0) pg MCHC 32.4 (31.0-37.0) g/dL RDW 13.9 (11.5-15.5) % Plt Count 516 H (150-450) k/uL Neutrophils % 43 % Lymphocytes % 42 % Monocytes % 6 % Eosinophils % 4 % Basophils % 1 % Neutrophils # 5.0 (1.3-7.7) k/uL Lymphocytes # 4.8 (1.0-4.8) k/uL Monocytes # 0.7 (0-1.0) k/uL Eosinophils # 0.5 (0-0.7) k/uL Basophils # 0.1 (0-0.2) k/uL PT (9.0-12.0) sec INR (<1.2) APTT (22.0-30.0) sec D-Dimer (<0.60) mg/L FEU Sodium 139 (137-145) mmol/L Potassium 5.1 (3.5-5.1) mmol/L Chloride 104 (98-107) mmol/L Carbon Dioxide 27 (22-30) mmol/L Anion Gap 8 mmol/L BUN 11 (7-17) mg/dL Creatinine 0.80 (0.52-1.04) mg/dL Est GFR (MDRD) Af Amer >60 (>60 ml/min/1.73 sqM) Est GFR (MDRD) Non-Af >60 (>60 ml/min/1.73 sqM) Glucose 84 (74-99) mg/dL Calcium 9.9 (8.4-10.2) mg/dL Magnesium 2.0 (1.6-2.3) mg/dL Total Bilirubin 0.6 (0.2-1.3) mg/dL AST 41 H (14-36) U/L ALT 47 (9-52) U/L Alkaline Phosphatase 119 (38-126) U/L Total Creatine Kinase 48 (30-135) U/L CK-MB (CK-2) 0.8 (0.0-2.4) ng/mL CK-MB (CK-2) Rel Index 1.7 Troponin I <0.012 (0.000-0.034) ng/mL Total Protein 7.5 (6.3-8.2) g/dL Albumin 4.3 (3.5-5.0) g/dL 12/21/16 Range/Units 13:10 WBC (3.8-10.6) k/uL RBC (3.80-5.40) m/uL Hgb (11.4-16.0) gm/dL Hct (34.0-46.0) % MCV (80.0-100.0) fL MCH (25.0-35.0) pg MCHC (31.0-37.0) g/dL RDW (11.5-15.5) % Plt Count (150-450) k/uL Neutrophils % % Lymphocytes % % Monocytes % % Eosinophils % % Basophils % % Neutrophils # (1.3-7.7) k/uL Lymphocytes # (1.0-4.8) k/uL Monocytes # (0-1.0) k/uL Eosinophils # (0-0.7) k/uL Basophils # (0-0.2) k/uL PT 9.8 (9.0-12.0) sec INR 1.0 (<1.2) APTT 23.9 (22.0-30.0) sec D-Dimer 0.26 (<0.60) mg/L FEU Sodium (137-145) mmol/L Potassium (3.5-5.1) mmol/L Chloride (98-107) mmol/L Carbon Dioxide (22-30) mmol/L Anion Gap mmol/L BUN (7-17) mg/dL Creatinine (0.52-1.04) mg/dL Est GFR (MDRD) Af Amer (>60 ml/min/1.73 sqM) Est GFR (MDRD) Non-Af (>60 ml/min/1.73 sqM) Glucose (74-99) mg/dL Calcium (8.4-10.2) mg/dL Magnesium (1.6-2.3) mg/dL Total Bilirubin (0.2-1.3) mg/dL AST (14-36) U/L ALT (9-52) U/L Alkaline Phosphatase (38-126) U/L Total Creatine Kinase (30-135) U/L CK-MB (CK-2) (0.0-2.4) ng/mL CK-MB (CK-2) Rel Index Troponin I (0.000-0.034) ng/mL Total Protein (6.3-8.2) g/dL Albumin (3.5-5.0) g/dL Disposition Clinical Impression: Chest pain Disposition: HOME SELF-CARE Condition: Good Instructions: Chest Pain (ED) Referrals: Vilma Lara MD [Primary Care Provider] - 1-2 days Time of Disposition: 14:42
--- NOTE | 2016-12-21 13:43 | XR ---
EXAMINATION TYPE: XR chest 2V DATE OF EXAM: 12/21/2016 COMPARISON: 11/17/16 and 12/02/16 HISTORY: Shortness of breath TECHNIQUE: Frontal and lateral views of the chest are obtained. FINDINGS: Scattered senescent parenchymal changes noted. Small residual area of infiltrate right upper lobe is noted. Again continued follow-up until complete resolution is advised. No additional infiltrates are seen at this time. Heart size is stable. Mediastinal structures are stable and grossly unremarkable. No evidence for hilar prominence. Degenerative changes dorsal spine. IMPRESSION: 1. Small residual area of infiltrate right upper lobe is noted. Again continued follow-up until compl ete resolution is advised. No additional infiltrates are seen at this time.
[2016-12-21 13:44] LABS: Basophils # (A) 0.1 k/uL (0-0.2); Basophils % (A) 1 %; CH 30.8; CHCM 31.3; Eosinophils # (A) 0.5 k/uL (0-0.7); Eosinophils % (A) 4 %; HDW 2.15; HGB 15.2 gm/dL (11.4-16.0); Luc # (Auto) 0.31; Luc % (Auto) 3; Lymphocytes # (A) 4.8 k/uL (1.0-4.8); Lymphocytes % (A) 42 %; MCH 32.1 pg (25.0-35.0); MCHC 32.4 g/dL (31.0-37.0); Mean Platelet Volume 8.1; Monocytes # (A) 0.7 k/uL (0-1.0); Monocytes % (A) 6 %; Neutrophils % (A) 43 %; RBC 4.74 m/uL (3.80-5.40); RDW 13.9 % (11.5-15.5); WBC 11.4 k/uL (3.8-10.6); WBC (Perox) 11.19
[2016-12-21 13:48] LABS: ALT 47 U/L (9-52); AST 41 U/L (14-36); Alkaline Phosphatase 119 U/L (38-126); Anion Gap 8 mmol/L; Blood Urea Nitrogen 11 mg/dL (7-17); Calcium 9.9 mg/dL (8.4-10.2); Carbon Dioxide 27 mmol/L (22-30); Chloride 104 mmol/L (98-107); Glucose 84 mg/dL (74-99); Non-African American GFR(MDRD) >60 (>60 ml/min/1.73 sqM); Potassium 5.1 mmol/L (3.5-5.1); Sodium 139 mmol/L (137-145); Total Bilirubin 0.6 mg/dL (0.2-1.3); Total Protein 7.5 g/dL (6.3-8.2)
[2016-12-21 14:00] LABS: Creatine Kinase 48 U/L (30-135)
[2016-12-21 14:08] LABS: Partial Thromboplastin Time 23.9 sec (22.0-30.0); Prothrombin Time 9.8 sec (9.0-12.0)
[2016-12-21 14:12] LABS: Creatine Kinase MB 0.8 ng/mL (0.0-2.4); Troponin I <0.012 ng/mL (0.000-0.034)
[2016-12-21 14:35] VITALS: BP 124/75; PULSE 62; TEMP 98.4
== END 2016-12-21 15:08 | disposition home or self-care (01) ==
LOC: EC 12:21
DX: R07.9 Chest pain, unspecified (principal); I49.1 Atrial premature depolarization; F32.9 Major depressive disorder, single episode, unspecified; Z87.891 Personal history of nicotine dependence; Z88.6 Allergy status to analgesic agent; Z79.891 Long term (current) use of opiate analgesic; Z79.899 Other long term (current) drug therapy
CPT/HCPCS: 36415; 71020; 80053; 82550; 82553; 83735; 84484; 85025; 85379; 85610; 85730; 99285

== ENCOUNTER → 2017-01-18 | Outpatient (CLI) | payer OTHER ==
--- NOTE | 2017-01-20 08:04 | MM ---
Reason for exam: screening (asymptomatic). Last mammogram was performed 1 year and 4 months ago. History: Patient is postmenopausal. Physical Findings: A clinical breast exam by your physician is recommended on an annual basis and results should be correlated with mammographic findings. MG Screening Mammo w CAD Bilateral CC and MLO view(s) were taken. Prior study comparison: September 17, 2015, bilateral MG screening mammo w CAD. July 22, 2005, workup right diagnostic mammogram. The breast tissue is heterogeneously dense. This may lower the sensitivity of mammography. Stable benign calcifications. No significant changes when compared with prior studies. ASSESSMENT: Benign, BI-RAD 2 RECOMMENDATION: Routine screening mammogram of both breasts in 1 year.
== END ==
LOC: RADMAMWWP 13:12
PROVIDERS: ATTEND Family Medicine
DX: Z12.31 Encounter for screening mammogram for malignant neoplasm of breast (principal)

== ENCOUNTER → 2017-01-25 | Outpatient (CLI) | payer OTHER ==
--- NOTE | 2017-01-25 10:39 | XR ---
EXAMINATION TYPE: XR chest 2V DATE OF EXAM: 01/25/2017 COMPARISON: 12/21/2016 HISTORY: 56-year-old female with cough TECHNIQUE: Frontal and lateral views FINDINGS: The cardiomediastinal silhouette, aorta, and pulmonary vasculature are within normal limits. Minimal residual interstitial densities peripheral right upper lobe with interval improved aeration from prio r exam. No new area of consolidation and no pleural effusion. Surgical clips left upper quadrant. Kalpesh gs and pleural spaces are clear. IMPRESSION: The vast majority of the previous right upper lobe pneumonia has resolved. Minimal interstitial densi ties remain.
--- NOTE | 2017-01-25 10:40 | XR ---
EXAMINATION TYPE: XR shoulder complete LT DATE OF EXAM: 01/25/2017 COMPARISON: NONE HISTORY: 56-year-old female with left shoulder pain for 3 months TECHNIQUE: 3 views FINDINGS: Mild degenerative change at the AC joint with inferior spurring. Subacromial space is preserved. No t endinous or bursal calcifications. Small delineation to the greater tuberosity. No acute fracture or dislocation. IMPRESSION: Mild AC joint OA. No acute osseous abnormality seen.
== END | disposition home or self-care (01) ==
LOC: RADXRMAIN 09:30
PROVIDERS: ATTEND Physician Assistant
DX: M19.012 Primary osteoarthritis, left shoulder (principal); J98.4 Other disorders of lung; R05 Cough
CPT/HCPCS: 71020

== ENCOUNTER → 2018-06-20 | Outpatient (CLI) | payer MEDICARE ==
--- NOTE | 2018-06-20 09:47 | CT ---
EXAMINATION TYPE: CT abdomen pelvis w con DATE OF EXAM: 06/20/2018 COMPARISON: 11/05/2013 HISTORY: umbilical hernia, distention CT DLP: 996 mGycm Automated exposure control for dose reduction was used. CONTRAST: CT scan of the abdomen pelvis is performed with IV Contrast, patient injected with 100 mL of Isovue 3 00. FINDINGS- LUNG BASES-correlate for underlying COPD. There is a 2 mm nodule in the right lower lobe too small to characterize. Heart is mildly prominent. LIVER/GB-there is intrahepatic biliary ductal dilation. Calcifications along the course of the common bile duct as well as a gallstone. Suspect CBD stones wi th obstruction.. PANCREAS-mild prominence the pancreatic duct. SPLEEN-postsplenectomy changes are seen with surgical clips.. ADRENALS- No gross abnormality is seen. KIDNEYS/BLADDER- no hydronephrosis nephrolithiasis or renal mass. BOWEL- no bowel dilatation. Normal appendix. LYMPH NODES- No greater than 1cm abdominal or pelvic lymph nodes areappreciated. OSSEOUS STRUCTURES-hypertrophic change of the vertebral column. OTHER- there remains prominence of the mesenteric venous system correlate for varices or venous davina estion. Atherosclerotic change aorta with no evidence of aneurysm. No free air or free fluid. There i s a small anterior abdominal wall hernia containing peritoneal fat. This is paramedian to the right a lori the level of the umbilicus. Small bilateral fat-containing inguinal hernias. IMPRESSION- 1. There is mild to moderate intrahepatic biliary ductal dilation with numerous calcific densities al efren the course of the common bile duct correlate for obstruction CBD secondary to biliary calcificati ons. Additionally, there is evidence of cholelithiasis. 2. Small anterior abdominal wall hernia containing peritoneal fat X line 3. There remains prominent venous structures in the mesentery which is been previously described and may been the basis of varices or perhaps venous congestion. Correlate clinically. 4. Post splenectomy 5. There is a 2 mm right lower lobe pulmonary nodule.
== END | disposition home or self-care (01) ==
LOC: RADCTMAIN 07:02
PROVIDERS: ATTEND Family Medicine
DX: K80.20 Calculus of gallbladder without cholecystitis without obstruction (principal); K46.9 Unspecified abdominal hernia without obstruction or gangrene; K83.8 Other specified diseases of biliary tract; Z90.81 Acquired absence of spleen
CPT/HCPCS: 74177; 36415; Q9967

== ENCOUNTER → 2018-08-14 | Outpatient (CLI) | payer MEDICARE ==
--- NOTE | 2018-08-14 15:57 | XR ---
EXAMINATION TYPE: XR chest 2V DATE OF EXAM: 08/14/2018 COMPARISON: 07/03/2018 TECHNIQUE: PA and lateral views submitted. HISTORY: Cough FINDINGS: The lungs are clear and there is no pneumothorax, pleural effusion, or focal pneumonia. Linear cardenas ges at the right lung base. Arthropathy of the right shoulder. Biapical pleural thickening. Degenerat yi change of the spine. Surgical clips in the abdomen. IMPRESSION: 1. Right basilar linear changes favor atelectasis over infiltrate. Correlate clinically..
== END | disposition home or self-care (01) ==
LOC: RADXRMAIN 15:31
PROVIDERS: ATTEND Physician Assistant
DX: R91.8 Other nonspecific abnormal finding of lung field (principal); R05 Cough
CPT/HCPCS: 71046

== ENCOUNTER → 2018-10-19 | Outpatient (CLI) | payer MEDICARE ==
--- NOTE | 2018-10-19 11:21 | CT ---
EXAMINATION TYPE: CT chest w con DATE OF EXAM: 10/19/2018 COMPARISON: 06/20/2018 CT abdomen HISTORY: Follow up known lung nodule. CT DLP: 254.1 mGycm Automated exposure control for dose reduction was used. CONTRAST: CT scan of the chest is performed with IV Contrast, patient injected with 100 mL of Isovue 300. FINDINGS: LUNGS: Emphysematous changes are noted. There is no pneumothorax. No overt failure. Segmental consoli dation along the medial margin of the right upper lobe most typical of atelectasis. 2 mm nodule stabl e in appearance. MEDIASTINUM: There are no greater than 1 cm hilar or mediastinal lymph nodes. No pericardial effusi on is seen. OTHER: Gallstone with intrahepatic biliary dilation stable from recent CT scan. Hypertrophic and deg enerative change of the spine. IMPRESSION: 1. COPD. Stable 2 mm right-sided pulmonary nodule. Suspect this is most likely postinflammatory. Randolph mmend a 6 month follow-up CT scan to confirm stability. 2. Cholelithiasis with biliary dilation which is been reported previously and is stable. Stones withi n the common bile duct are suspected as the etiology of the biliary obstruction.
== END ==
LOC: RADCTMAIN 10:35
PROVIDERS: ATTEND Family Medicine
DX: J44.9 Chronic obstructive pulmonary disease, unspecified (principal); R91.1 Solitary pulmonary nodule
CPT/HCPCS: 71260; Q9967

== ENCOUNTER → 2018-11-28 | Outpatient (CLI) | payer MEDICARE ==
--- NOTE | 2018-11-29 01:53 | MR ---
EXAMINATION TYPE: MR MRCP DATE OF EXAM: 11/28/2018 COMPARISON: None HISTORY: Rt side abdomen pain Standard multiplanar, multisequence MRI departmental protocol Multiplanar, multisequence images of the abdomen were acquired. There are 3-D post processed images. FINDINGS: Stomach appears normal. Spleen is absent. There is no evidence of pancreatic mass. Pancreat ic duct is not dilated. Liver has normal size and contour. There is no focal liver defect. There mult iple small low signal foci in the gallbladder consistent with multiple gallstones. Bladder is not dil ated. There is no adrenal mass. Kidneys have normal size. There is no hydronephrosis. There is ectasia of the intrahepatic bile ducts. The common hepatic duct is also ectatic and measures 9 mm. The left hepatic duct measures 10 mm. The distal common bile duct is small. There is segment o f the common hepatic duct that is not well identified and appears severely stenotic or has filling de fect. There is no ascites. There is no evidence of pleural effusion. IMPRESSION: The exam shows dilated intrahepatic bile ducts and nonvisualization of 1 cm of the lumen of the dista l common hepatic duct. This could relate to strictures or choledocholithiasis. There is probably not a change compared to old CT scan of 06/20/2018. There are small gallstones. There is probably not a sig nificant change in the bile ducts compared to older CT scan of 11/05/2013. I do not suspect a neoplast ic process.
== END | disposition home or self-care (01) ==
LOC: RADMRIMAIN 07:16
PROVIDERS: ATTEND Internal Medicine Gastroenterology
DX: K80.20 Calculus of gallbladder without cholecystitis without obstruction (principal); K83.8 Other specified diseases of biliary tract
CPT/HCPCS: 74181

== ENCOUNTER 2018-12-18 10:28 | Inpatient (IN) | payer MEDICARE ==
[~2018-12-18 10:28] MED LIST: DEXAMETHASONE SOD PHOSPHATE 10 MG/ML 1 ML VIAL IV ONE; INDOMETHACIN 50MG SUPPOSITORY RECTAL ONE; LACTATED RINGERS 1,000 ML IV NR; LEVOFLOXACIN 500MG-D5W PMX 500 MG in DEXTROSE/WATER 1 100ML.BAG IVPB NR; LIDOCAINE 1% 20 ML VIAL (10MG/ML) FOR IV START INTRADERMA PRN; MIDAZOLAM 2 MG/2 ML VIAL IV PRN; fentaNYL (PF) 50 MCG/ML 2 ML AMP IV PRN
[2018-12-18] MEDS ORDERED: ONDANSETRON 4 MG/2 ML VIAL IVP ONE ×2 (11:25→14:46)
[2018-12-18] MEDS ORDERED: fentaNYL (PF) 50 MCG/ML 2 ML AMP ONE (12:06)
[2018-12-18] MEDS ORDERED: PHENYLEPHRINE-0.9% NACL SYG 1 MG/10 ML SYRINGE ONE (12:06)
[2018-12-18] MEDS ORDERED: LIDOCAINE 1% INJ 10MG/ML (20 ML MDV) ONE (12:06)
[2018-12-18] MEDS ORDERED: PROPOFOL 10 MG/ML 20 ML VIAL IV ONE (12:06)
[2018-12-18] MEDS ORDERED: SUCCINYLCHOLINE CHLORIDE 100 MG/5 ML SYR IV ONE (12:06)
[2018-12-18] MEDS ORDERED: ROCURONIUM BROMIDE 10 MG/ML 10 ML VIAL IV ONE (12:06)
[2018-12-18] MEDS ORDERED: MIDAZOLAM 2 MG/2 ML VIAL ONE (12:06)
[2018-12-18] MEDS ORDERED: ePHEDrine SULFATE/0.9% NACL/PF 50 MG/5 ML SYRINGE IV ONE (12:06)
[2018-12-18] MEDS ORDERED: TRANEXAMIC ACID 1,000 MG in SODIUM CHLORIDE 0.9% 100 ML IV STA (13:16)
[2018-12-18] MEDS ORDERED: IOPAMIDOL-300 50ML BTL MISCELLANE ONE (13:38)
[2018-12-18 13:50] LABS: HCT 31.8 % (34.0-46.0); HGB 10.8 gm/dL (11.4-16.0); MCH 32.3 pg (25.0-35.0); MCHC 33.9 g/dL (31.0-37.0); MCV 95.2 fL (80.0-100.0); Mean Platelet Volume 7.9; Platelet Count 381 k/uL (150-450); RBC 3.34 m/uL (3.80-5.40); RDW 13.1 % (11.5-15.5); WBC 12.8 k/uL (3.8-10.6)
[2018-12-18] MEDS ORDERED: LACTATED RINGERS 1,000 ML IV ONE (14:03)
--- NOTE | 2018-12-18 14:10 | FL ---
EXAMINATION TYPE: FL ERCP biliary duct only DATE OF EXAM: 12/18/2018 CLINICAL HISTORY: Cholelithiasis without obstruction. Biliary stones. TECHNIQUE: Fluoroscopy. COMPARISON: MRCP November 28, 2018. FINDINGS: Fluoroscopic guidance was provided during ERCP procedure performed by Dr. Gonzalez. A tota l of 17 seconds of fluoroscopic time was utilized during the procedure and single spot image is saved which shows successful accessed with rounded lucencies could reflect air bubbles or CBD stones. Proc edure had to be terminated prematurely due to medical condition by GI doctor. I was not present or pe rformed procedure. IMPRESSION: As Above.
--- NOTE | 2018-12-18 14:44 | P.PCN ---
Date of Procedure: 12/18/18 Description of Procedure: Brief history: 58-year-old who presents for outpatient ERCP. The patient had been seen in the clinic where she reported abdominal pain in the. Umbilical region described as intermittent sharp pain. The patient had a computed tomography scan in 10/2018 which demonstrated biliary dilation with suspected stones in the CBD. Follow-up MRCP in 11/2018 also concerning for choledocholithiasis. Procedure performed: ERCP with sphincterotomy and balloon sweep Preoperative diagnoses: IV sedation per anesthesia: Estimated blood loss: Minimal. Procedure: After informed consent was obtained from the patient and after the risks benefits and complications including bleeding perforation and pancreatitis explained in detail the patient was brought into the endoscopy unit. The patient was placed in prone position and IV conscious sedation was administered by anesthesia under continuous monitoring. The Olympus side-viewing duodenoscope was then inserted into the mouth and esophagus intubated without any difficulty. The scope was gradually advanced into the stomach and duodenum. The major papilla was identified without any difficulty. Common bile duct was successfully cannulated with a wire passed into the common bile duct. Cholangiogram was then performed with findings of a dilated CBD with filling defects noted in the distal CBD. Sphincterotome was then used to make a 7 mm sphincterotomy was no bleeding noted at this time. An 11 mm balloon was then exchanged over a wire with the sphincterotome and passed into the distal common bile duct. The duct was swept 3 times with large amounts of bleeding occurring in approximately 1.5 pints of blood lost. Clot formed over the ampulla and no further bleeding was noted. At this time the procedure was completed. The patient was normotensive at this time and able to be successfully extubated. Impression: 1. ERCP with cholangiogram, sphincterotomy and balloon sweep of the bile duct. 2. Post-ERCP bleed, hemostasis at the end of the procedure. Recommendations: The findings of this examination were discussed with the patient as well as a family/sister. Nothing by mouth except for ice chips tonight. Serial CBC every 6 hours. Repeat hemoglobin after procedure significant for hemoglobin of 10.8. If further bleeding patient would benefit from transferred to [facility] for ERCP with metal stent placement. Primary care physician and ICU team consulted and patient will be admitted to the ICU for monitoring overnight.
--- NOTE | 2018-12-18 14:57 | P.CONS ---
History of Present Illness - Reason for Consult Consult date: 12/18/18 Post ERCP bleed Requesting physician: Estiven Sagastume - Chief Complaint Post ERCP bleed - History of Present Illness Pleasant 58-year-old female with a history of alcohol abuse for which she has been abstinent over the past few months who presented for outpatient ERCP kathy berkowitz to suspected choledocholithiasis. The patient had been having pain in the epigastric and right upper quadrant abdomen described as sharp and frequent. She had evaluation with computed tomography scan in October and MRCP in November with findings consistent for choledocholithiasis and was scheduled for outpatient ERCP. The patient was having the procedure today and underwent sphincterotomy and cholangiogram, however on balloon sweep of the bile ducts bleeding began. The patient had a stat type and screen as well as a CBC with findings of a hemoglobin of 10.8. Previously hemoglobin in 09/2018 was 15.5. At the position of the procedure no further bleeding was occurring with a clot noted over the ampulla. The patient was extubated and normotensive in the postoperative area with decision made to admit the patient to the ICU for further monitoring. She has a medical history significant for constipation, generalized anxiety disorder, depressive disorder, gastritis, and alcohol abuse for which she is currently receiving Antabuse. Review of Systems REVIEW OF SYSTEMS: CONSTITUTIONAL: Denies any fevers, chills, weight change or fatigue. CARDIOVASCULAR: Denies any chest pain, palpitations high or low blood pressures RESPIRATORY: Denies any shortness of breath, hemoptysis or cough. GENITOURINARY: No dysuria or hematuria. MUSCULOSKELETAL: No weakness reported. SKIN: Denies any new rashes or lesions, jaundice or pallor. PSYCHIATRIC: History of anxiety and depression, as well as alcohol abuse for which she is currently abstinent. NEUROLOGY: Denies headache, denies any new focal deficits. EARS/NOSE/THROAT: No recent hearing change, congestion, nasal discharge or sore throat. EYES: No pain in eyes, discharge or change in vision. GASTROINTESTINAL: As per HPI. 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/had fall from a slide, left knee goes out sometimes History of Any Multi-Drug Resistant Organisms: None Reported Past Surgical History: Cholecystectomy Additional Past Surgical History / Comment(s): splenectomy, portal shunt in abdomen age 16, sole cataracts Past Anesthesia/Blood Transfusion Reactions: Motion Sickness Additional Past Anesthesia/Blood Transfusion Reaction / Comm: motion sickness in elevator Smoking Status: Current every day smoker - Past Family History Father Family Medical History: Cancer Additional Family Medical History / Comment(s): colon cancer Mother Family Medical History: Deep Vein Thrombosis (DVT) Additional Family Medical History / Comment(s): emphysema Medications and Allergies Home Medications Medication Instructions Recorded Confirmed Type HYDROcodone/APAP 7.5-325MG [[place] 1 tab PO TID 05/02/16 12/18/18 History 7.5-325] rOPINIRole HCL [Requip] 0.5 mg PO HS 10/29/16 12/18/18 History Disulfiram [Antabuse] 250 mg PO W/LUNCH 12/15/18 12/18/18 History Ipratropium-Albuterol Nebulize 3 ml INHALATION QID PRN 12/15/18 12/18/18 History [Duoneb 0.5 mg-3 mg/3 ml Soln] Naproxen [Naprosyn] 500 mg PO Q12HR 12/15/18 12/18/18 History Pantoprazole [Protonix] 40 mg PO W/LUNCH 12/15/18 12/18/18 History traZODone HCL 50 mg PO HS 12/15/18 12/18/18 History Allergies Allergy/AdvReac Type Severity Reaction Status Date / Time aspirin Allergy Bleeding Verified 12/18/18 11:10 disorder as a child Physical Exam Vitals: Vital Signs Temp Pulse Resp BP Pulse Ox 12/18/18 14:05 97 F L 67 16 119/88 100 12/18/18 11:00 97.6 F 80 18 124/61 99 Intake and Output 12/17/18 12/18/18 12/18/18 22:59 06:59 14:59 Intake Total 1325 Balance 1325 Intake: IV 1325 Other: Weight 75.75 kg On physical examination, patient appears comfortable in no apparent distress. HEAD: Normocephalic, atraumatic. EYES: No scleral icterus. No conjunctival injection. MOUTH: No lesions, tongue midline. NECK: Trachea midline, no gross abnormalities. CHEST: Clear to auscultation with no wheezing or rhonchi appreciated. HEART: Regular rate and rhythm. ABDOMEN: Soft, obese. Bowel sounds are positive. No organomegaly. No guarding or rigidity. EXTREMITIES: No pedal edema. SKIN: No rashes, no jaundice. NEUROLOGIC: Alert and oriented x3. No focal deficits. Results CBC & Chem 7: 12/18/18 13:32 Labs: Abnormal Lab Results - Last 24 Hours (Table) 12/18/18 12/18/18 Range/Units 13:31 13:32 WBC 12.8 H (3.8-10.6) k/uL RBC 3.34 L (3.80-5.40) m/uL Hgb 10.8 L (11.4-16.0) gm/dL Hct 31.8 L (34.0-46.0) % Crossmatch See Detail Assessment and Plan (1) Anemia associated with acute blood loss Narrative/Plan: 58-year-old presenting for outpatient ERCP for treatment of choledocholithiasis and abdominal pain. The patient had bleeding after sphincterotomy and balloon sweep of the bile duct with hemostasis achieved prior to completion of the procedure. However given the amount of blood decision was made for inpatient observation. Hemoglobin was found to be 10.8 with her last hemoglobin in September significant past 15.5. Current Visit: Yes Status: Acute Code(s): D62 - ACUTE POSTHEMORRHAGIC ANEMIA SNOMED Code(s): 882440681 (2) Post ERCP bleeding Current Visit: Yes Status: Acute Code(s): K91.840 - POSTPROC HEMOR OF A DGSTV SYS ORG FOL A DGSTV SYS PROCEDURE SNOMED Code(s): 830463177 Plan: Supportive care Nothing by mouth Okay for ice chips Continue to monitor CBC every 6 hours and transfuse as needed If further bleeding consideration for transfer to [facility] for metal stent placement by the advanced endoscopy team Medical Genetics Director service consulted, appreciate her management PCP was called and informed of the procedure and findings Thank you for allowing us to participate in the care of the patient we will continue to follow
[2018-12-18 15:28] LABS: Glucose,Whole Blood 148 mg/dL (75-99)
[2018-12-18 17:06] LABS: HCT 34.5 % (34.0-46.0); HGB 11.2 gm/dL (11.4-16.0); MCH 31.7 pg (25.0-35.0); MCHC 32.3 g/dL (31.0-37.0); MCV 97.9 fL (80.0-100.0); Platelet Count 339 k/uL (150-450); RBC 3.52 m/uL (3.80-5.40); WBC 20.8 k/uL (3.8-10.6)
[2018-12-18 17:34] VITALS: BMI 32.1
[2018-12-18] MEDS ORDERED: NALOXONE 0.4 MG/ML 1 ML VIAL IV PRN (18:28)
[2018-12-18] MEDS: LACTATED RINGERS 1,000 ML IV SCH (18:48)
[2018-12-18] MEDS: HYDROcodone/APAP 7.5-325MG 1 EACH TAB PO PRN (21:24)
[2018-12-18 21:41] LABS: HCT 30.8 % (34.0-46.0); HGB 10.4 gm/dL (11.4-16.0); MCH 31.7 pg (25.0-35.0); MCHC 33.9 g/dL (31.0-37.0); MCV 93.3 fL (80.0-100.0); Mean Platelet Volume 8.7; Platelet Count 303 k/uL (150-450); WBC 18.3 k/uL (3.8-10.6)
[2018-12-18] MEDS: traZODone HCL 50 MG TAB PO SCH (22:20)
[2018-12-19 04:25] LABS: African American GFR (CKD) >90 (>60 ml/min/1.73 sqM); Anion Gap 6 mmol/L; Blood Urea Nitrogen 18 mg/dL (7-17); Calcium 8.9 mg/dL (8.4-10.2); Carbon Dioxide 21 mmol/L (22-30); Chloride 108 mmol/L (98-107); Glucose 91 mg/dL (74-99); Sodium 135 mmol/L (137-145)
[2018-12-19 04:43] LABS: Basophils # (A) 0.1 k/uL (0-0.2); Basophils % (A) 0 %; Eosinophils % (A) 0 %; HCT 29.8 % (34.0-46.0); HGB 9.8 gm/dL (11.4-16.0); Lymphocytes # (A) 3.8 k/uL (1.0-4.8); Lymphocytes % (A) 20 %; MCHC 32.9 g/dL (31.0-37.0); MCV 97.3 fL (80.0-100.0); Mean Platelet Volume 7.7; Monocytes # (A) 0.9 k/uL (0-1.0); Monocytes % (A) 5 %; Neutrophils # (A) 14.3 k/uL (1.3-7.7); Neutrophils % (A) 74 %; Platelet Count 322 k/uL (150-450); RBC 3.07 m/uL (3.80-5.40); RDW 13.1 % (11.5-15.5); WBC 19.4 k/uL (3.8-10.6)
[2018-12-19] MEDS: HYDROcodone/APAP 7.5-325MG 1 EACH TAB PO PRN ×3 (08:25→21:37)
--- NOTE | 2018-12-19 09:09 | CONS ---
CONSULTATION PULMONARY/CRITICAL CARE CONSULTATION: DATE OF CONSULTATION: December 19, 2018 REASON FOR CONSULTATION: ICU management, GI bleed. This is a 58-year-old female who underwent an ERCP yesterday. Apparently after the procedure, the patient had some bleeding. Dr. Gonzalez called me on the phone to ask me whether or not it would be okay to admit the patient to the ICU for observation. There was no problem with that. She was admitted to the ICU on the . She has had no further bleeding. Her hemoglobin this morning was 9.8. She is getting O2 at 2 L. She is getting an IV of lactated Ringer's at 75 mL an hour. The patient was apparently scheduled for an outpatient ERCP secondary to suspected choledocholithiasis. The patient has been having pain in the epigastric and right upper quadrant region for some time. It was sharp in nature. Apparently during the procedure, she underwent a sphincterotomy and cholangiogram; however, on the balloon sweep of the bile duct, bleeding began. Because of that reason, she was admitted to the ICU. Her medical history is positive for constipation, generalized anxiety disorder, depression, gastritis, chronic alcohol abuse and chronic tobacco abuse. She is currently resting comfortably. As I mentioned, no further bleeding. She is on O2 at 2 L and an IV of lactated Ringer's at 75 mL an hour. MEDICAL HISTORY: Her medical history as above includes DJD and pneumonia. She has a previous history of H pylori infection, herniated disc, hip bursitis, varicose veins, restless legs syndrome, GI bleed, ruptured spleen and some left knee issues. SURGICAL HISTORY: Surgical history includes cholecystectomy. She has also had bilateral cataract surgery and portal shunt at a young age. SOCIAL HISTORY: Social history is positive for ongoing tobacco use. She also drinks heavily apparently. No illicit drug use. FAMILY HISTORY: Family history is positive for a father with colon cancer and mother with DVT and emphysema. HOME MEDICATIONS: Home medications include [place], Requip, Antabuse, updrafts, naproxen, Protonix and trazodone. ALLERGIES: ASPIRIN. REVIEW OF SYSTEMS: CONSTITUTIONAL: Negative. NEUROLOGIC: Negative. HEENT: Negative. CARDIOVASCULAR: Negative. PULMONARY: Negative. GI: Negative. : Negative. RHEUMATOLOGIC: Negative. IMMUNOLOGIC: Negative. DERMATOLOGIC: Negative. PHYSICAL EXAMINATION: VITAL SIGNS: Current vital signs are reviewed. Temperature 98.2, heart rate 76, respiratory rate 22, blood pressure 108/66, room air saturation 95%. GENERAL: Appears in no acute distress. HEENT: Examination is grossly unremarkable. Mucous membranes are moist. No oral lesions. NECK: Supple. Full range of motion. No adenopathy or thyromegaly. Neck veins are flat. CARDIOVASCULAR: Examination reveals regular rhythm and rate. S1, S2 normal. No S3, S4, or murmur. Heart rate 76. LUNGS: Are clear. Breath sounds equal. No wheezes, rhonchi, or crackles. ABDOMEN: Soft. Bowel sounds are heard. No masses or tenderness. EXTREMITIES: Are intact. No cyanosis, clubbing, or edema. SKIN: Without rash. NEUROLOGIC: Examination is brief but nonfocal. LABORATORY DATA: Current laboratory data is reviewed. Her white count is 19.4, hemoglobin 9.8, hematocrit 29.8, platelet count is normal. Her four hemoglobins here been 10.8, 11.2, 10.4, and 9.8. Sodium 135, potassium 5, chloride 108, CO2 of 21. Anion gap is 6. BUN and creatinine were 18 and 0.83. No recent chest x-ray. MEDICATIONS: Medications are reviewed. ASSESSMENT: 1. Status post gastrointestinal bleed following ERCP for suspected choledocholithiasis. 2. History of chronic alcohol and tobacco abuse. 3. Previous history of ruptured spleen. 4. Suspected alcoholic liver disease. 5. Multiple other medical problems and comorbidities. PLAN: Currently, the patient is doing relatively well. Hemoglobin is stable. The patient possibly could be discharged home today. Will see what GI wants to do. Certainly, the patient could be transferred out to the general medical floor. No additional recommendations are made. No current or active ICU issues at this time. We will continue to follow as needed. MMODL / IJN: [id number] /
[2018-12-19] MEDS: LACTATED RINGERS 1,000 ML IV SCH ×2 (09:29→19:59)
--- NOTE | 2018-12-19 12:44 | P.HPIM ---
History of Present Illness 88-year-old female had ERCP performed by . Patient developed into procedure hemorrhage. Hemoglobin baseline is 15 post procedure 10.8. Patient was admitted to the ICU and under the care of city solicitor. Patient is stabi lized no further bleeding noted patient continues to have right upper quadrant tenderness. Also noted hernia to right upper quadrant. There was discussion about transferred to [facility] for completion of procedure. Patient has history of alcohol abuse patient states she has not had alcohol for 3 months. Patient does have continued tobacco use. Patient has been diagnosed with choledoclithiasis Review of Systems Constitutional: Reports fatigue Gastrointestinal: Reports abdominal pain 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/had fall from a slide, left knee goes out sometimes History of Any Multi-Drug Resistant Organisms: None Reported Past Surgical History: Cholecystectomy Additional Past Surgical History / Comment(s): splenectomy, portal shunt in abdomen age 16, sole cataracts Past Anesthesia/Blood Transfusion Reactions: Motion Sickness Additional Past Anesthesia/Blood Transfusion Reaction / Comment(s): motion sickness in elevator Smoking Status: Current every day smoker - Past Family History Father Family Medical History: Cancer Additional Family Medical History / Comment(s): colon cancer Mother Family Medical History: Deep Vein Thrombosis (DVT) Additional Family Medical History / Comment(s): emphysema Medications and Allergies Home Medications Medication Instructions Recorded Confirmed Type HYDROcodone/APAP 7.5-325MG [[place] 1 tab PO TID 05/02/16 12/18/18 History 7.5-325] rOPINIRole HCL [Requip] 0.5 mg PO HS 10/29/16 12/18/18 History Disulfiram [Antabuse] 250 mg PO W/LUNCH 12/15/18 12/18/18 History Ipratropium-Albuterol Nebulize 3 ml INHALATION QID PRN 12/15/18 12/18/18 History [Duoneb 0.5 mg-3 mg/3 ml Soln] Naproxen [Naprosyn] 500 mg PO Q12HR 10/04/19 10/07/19 History Pantoprazole [Protonix] 40 mg PO W/LUNCH 12/15/18 12/18/18 History traZODone HCL 50 mg PO HS 12/15/18 12/18/18 History Allergies Allergy/AdvReac Type Severity Reaction Status Date / Time aspirin Allergy Bleeding Verified 12/18/18 11:10 disorder as a child Physical Exam Vitals: Vital Signs Temp Pulse Pulse Resp BP BP Pulse Ox 12/19/18 11:00 80 15 121/74 92 L 12/19/18 10:00 75 12 109/67 94 L 12/19/18 09:00 74 12 108/59 96 12/19/18 08:00 98.2 F 76 22 108/66 95 12/19/18 07:00 70 12 90/54 95 12/19/18 06:00 80 14 106/66 92 L 12/19/18 05:00 86 16 106/83 94 L 12/19/18 04:00 97.9 F 69 9 L 104/67 97 12/19/18 03:00 71 13 102/66 93 L 12/19/18 02:00 75 15 102/59 96 12/19/18 01:00 81 16 104/63 90 L 12/19/18 00:00 97.9 F 80 21 101/64 91 L 12/18/18 23:00 92 14 99/80 91 L 12/18/18 22:00 76 8 L 119/73 94 L 12/18/18 21:00 80 19 117/77 92 L 12/18/18 20:00 86 76 19 112/74 91 L 12/18/18 19:00 86 12 126/80 94 L 12/18/18 18:00 74 17 115/67 96 12/18/18 17:40 80 15 115/67 97 12/18/18 17:30 83 12/18/18 17:20 82 12/18/18 17:10 77 12/18/18 17:00 80 16 115/67 94 L 12/18/18 16:50 77 12/18/18 16:40 73 12/18/18 16:30 80 12/18/18 16:20 75 12/18/18 16:00 96.4 F L 69 16 149/84 12/18/18 15:30 96.4 F L 66 76 16 149/84 96 12/18/18 15:05 79 16 119/63 100 12/18/18 14:45 81 16 124/62 100 12/18/18 14:30 73 16 117/91 100 12/18/18 14:15 83 16 110/84 100 12/18/18 14:05 97 F L 67 16 119/88 100 Intake and Output 12/18/18 12/19/18 12/19/18 22:59 06:59 14:59 Intake Total 435 600 375 Output Total 550 750 650 Balance -115 -150 -275 Intake: IV 435 600 375 Lactated Ringers 1,000 ml 210 @ 20 mls/hr IV .Q24H NR Rx#:[id number] Lactated Ringers 1,000 ml 225 600 375 @ 75 mls/hr IV .[id number] [facility] Rx#:[id number] Output: Urine 550 750 650 Other: # Voids 1 Weight 78.9 kg - Constitutional General appearance: mild distress - EENT Ears: bilateral: normal - Neck Neck: normal ROM - Respiratory Respiratory: bilateral: wheezing - Cardiovascular Rhythm: regular - Gastrointestinal General gastrointestinal: absent bowel sounds Localized gastrointestinal: tender: diffuse - Integumentary Integumentary: jaundiced - Neurologic Neurologic: CNII-XII intact - Musculoskeletal Musculoskeletal: generalized weakness - Psychiatric Psychiatric: A&O x's 3, appropriate affect, intact judgment & insight Results CBC & Chem 7: 12/19/18 03:43 12/19/18 03:43 Labs: Abnormal Lab Results - Last 24 Hours (Table) 12/18/18 12/18/18 12/18/18 Range/Units 13:31 13:32 15:26 WBC 12.8 H (3.8-10.6) k/uL RBC 3.34 L (3.80-5.40) m/uL Hgb 10.8 L (11.4-16.0) gm/dL Hct 31.8 L (34.0-46.0) % Neutrophils # (1.3-7.7) k/uL Sodium (137-145) mmol/L Chloride (98-107) mmol/L Carbon Dioxide (22-30) mmol/L BUN (7-17) mg/dL POC Glucose (mg/dL) 148 H (75-99) mg/dL Crossmatch See Detail 12/18/18 12/18/18 12/19/18 Range/Units 16:55 21:18 03:43 WBC 20.8 H 18.3 H 19.4 H (3.8-10.6) k/uL RBC 3.52 L 3.30 L 3.07 L (3.80-5.40) m/uL Hgb 11.2 L 10.4 L 9.8 L (11.4-16.0) gm/dL Hct 30.8 L 29.8 L (34.0-46.0) % Neutrophils # 14.3 H (1.3-7.7) k/uL Sodium (137-145) mmol/L Chloride (98-107) mmol/L Carbon Dioxide (22-30) mmol/L BUN (7-17) mg/dL POC Glucose (mg/dL) (75-99) mg/dL Crossmatch 12/19/18 Range/Units 03:43 WBC (3.8-10.6) k/uL RBC (3.80-5.40) m/uL Hgb (11.4-16.0) gm/dL Hct (34.0-46.0) % Neutrophils # (1.3-7.7) k/uL Sodium 135 L (137-145) mmol/L Chloride 108 H (98-107) mmol/L Carbon Dioxide 21 L (22-30) mmol/L BUN 18 H (7-17) mg/dL POC Glucose (mg/dL) (75-99) mg/dL Crossmatch Thrombosis Risk Factor Assmnt - Choose All That Apply Each Factor Represents 1 point: Age 41-60 years, Medical pt on bed rest, Obesity (BMI >25), Varicose veins Thrombosis Risk Factor Assessment Total Risk Factor Score: 4 Thrombosis Risk Factor Assessment Level: Moderate Risk Assessment and Plan Plan: Assessment Anemia associated with acute blood loss secondary to ERCP History of alcohol abuse no occult 3 months Smoker History this splenectomy History of osteoarthritis with herniated disc opioid dependence choledocholithiasis Plan patient stable for transfer to [facility] floor Continue consultation with gastroenterology
--- NOTE | 2018-12-19 13:41 | XR ---
EXAMINATION TYPE: XR chest 2V DATE OF EXAM: 12/19/2018 COMPARISON: Prior chest x-ray 11/07/2018 HISTORY: Cough TECHNIQUE: Frontal and lateral views of the chest are obtained. FINDINGS: There is no focal air space opacity, pleural effusion, or pneumothorax seen. The cardiac silhouette size is within normal limits. The osseous structures are intact. There are surgical clip s in the left upper quadrant. There is flattening the hemidiaphragms may be indicative of underlying COPD. Eventration of right hemidiaphragm is again noted. There are prominent epicardial fat pads. The re is bronchial wall thickening. IMPRESSION: Correlate for bronchitis, reactive airways disease, follow-up as indicated.
[2018-12-19 15:07] LABS: HCT 29.8 % (34.0-46.0); HGB 9.4 gm/dL (11.4-16.0); MCH 31.2 pg (25.0-35.0); MCHC 31.5 g/dL (31.0-37.0); MCV 99.1 fL (80.0-100.0); Platelet Count 318 k/uL (150-450); RBC 3.01 m/uL (3.80-5.40); RDW 13.4 % (11.5-15.5); WBC 18.6 k/uL (3.8-10.6)
[2018-12-19 15:13] LABS: Prothrombin Time 10.5 sec (9.0-12.0)
[2018-12-19 15:16] LABS: Albumin 2.9 g/dL (3.5-5.0); Calcium 8.7 mg/dL (8.4-10.2); Potassium 4.1 mmol/L (3.5-5.1); Total Bilirubin 6.8 mg/dL (0.2-1.3); Total Protein 5.3 g/dL (6.3-8.2)
[2018-12-19 16:13] VITALS: RESP 16
--- NOTE | 2018-12-19 16:29 | P.DS ---
Providers Date of admission: 12/18/18 14:56 Expected date of discharge: 12/19/18 Attending physician: Estiven Sagastume Consults: 12/18/18 14:29 Consult Physician Routine Consulting Provider: Addy Matute Consult Reason/Comments: GI bleed Do you want consulting provider notified?: Already Contacted Placement Type Exists?: Yes 12/18/18 14:48 Consult Physician Routine Consulting Provider: Jason Gonzalez Consult Reason/Comments: Post ERCP bleed Do you want consulting provider notified?: Already Contacted Primary care physician: Estiven Sagastume Hospital Course: Patient had bleeding complications in ERCP Noted raise in total biliubin 6.8. discussed with Dr Tang. Decision to transfer to [facility]. Patient has history of alcohol abuse and choledocholithasis. History of splenectomy nd cholecystectomy.. assessment hyperbilirubinemia choledocholithiasis anemia acute blood loss post ercp bleeding hx alcohol abuse smoker osteoarthritis plan transfer to [facility] Plan - Discharge Summary Discharge Rx Participant: Yes New Discharge Prescriptions: No Action HYDROcodone/APAP 7.5-325MG [[place] 7.5-325] 1 tab PO TID rOPINIRole HCL [Requip] 0.5 mg PO HS Pantoprazole [Protonix] 40 mg PO W/LUNCH traZODone HCL 50 mg PO HS Naproxen [Naprosyn] 500 mg PO Q12HR Disulfiram [Antabuse] 250 mg PO W/LUNCH Ipratropium-Albuterol Nebulize [Duoneb 0.5 mg-3 mg/3 ml Soln] 3 ml INHALATION QID PRN PRN Reason: Shortness Of Breath Discharge Medication List HYDROcodone/APAP 7.5-325MG [[place] 7.5-325] 1 tab PO TID 05/02/16 [History] rOPINIRole HCL [Requip] 0.5 mg PO HS 10/29/16 [History] Disulfiram [Antabuse] 250 mg PO W/LUNCH 12/15/18 [History] Ipratropium-Albuterol Nebulize [Duoneb 0.5 mg-3 mg/3 ml Soln] 3 ml INHALATION QID PRN 12/15/18 [History] Naproxen [Naprosyn] 500 mg PO Q12HR 12/15/18 [History] Pantoprazole [Protonix] 40 mg PO W/LUNCH 12/15/18 [History] traZODone HCL 50 mg PO HS 12/15/18 [History] Patient Instructions/Handouts: ERCP (Endoscopic Retrograde Cholangiopancreatography) (DC)
[2018-12-19] MEDS: CEPHALEXIN 500 MG CAP PO SCH ×2 (17:11→19:59)
[2018-12-19] MEDS: traZODone HCL 50 MG TAB PO SCH (19:59)
[2018-12-19 20:05] VITALS: BP 124/80; PULSE 70; TEMP 98
== END 2018-12-19 21:52 | disposition short-term general hospital (02) | DRG 920 ==
LOC: ORWHC2ENDO 10:28 → 2SICU 14:23 → ORWHC2ENDO 14:30 → 2SICU 14:56
PROVIDERS: ADMIT Family Medicine; ATTEND Family Medicine
PROC: 0F798ZZ Dilation of Common Bile Duct, Via Natural or Artificial Opening Endoscopic (ICD-10-PCS; principal; 2018-12-18 11:45)
DX: K91.61 Intraoperative hemorrhage and hematoma of a digestive system organ or structure complicating a digestive system procedure (principal); D62 Acute posthemorrhagic anemia; F11.20 Opioid dependence, uncomplicated; Y83.8 Other surgical procedures as the cause of abnormal reaction of the patient, or of later complication, without mention of misadventure at the time of the procedure; Y92.234 Operating room of hospital as the place of occurrence of the external cause; F17.210 Nicotine dependence, cigarettes, uncomplicated; F41.1 Generalized anxiety disorder; G25.81 Restless legs syndrome; K80.50 Calculus of bile duct without cholangitis or cholecystitis without obstruction; M19.90 Unspecified osteoarthritis, unspecified site; Z80.0 Family history of malignant neoplasm of digestive organs; Z82.5 Family history of asthma and other chronic lower respiratory diseases; Z86.19 Personal history of other infectious and parasitic diseases; Z90.49 Acquired absence of other specified parts of digestive tract; Z90.81 Acquired absence of spleen; K46.9 Unspecified abdominal hernia without obstruction or gangrene; Z87.01 Personal history of pneumonia (recurrent); Z91.81 History of falling; Z83.2 Family history of diseases of the blood and blood-forming organs and certain disorders involving the immune mechanism; Z88.6 Allergy status to analgesic agent; Z98.42 Cataract extraction status, left eye; Z98.41 Cataract extraction status, right eye; K59.00 Constipation, unspecified; E80.6 Other disorders of bilirubin metabolism
CPT/HCPCS: 43262; 43277; 71046; 74328; 80048; 80053; 85025; 85027; 85610; 86850; 86900; 86901; 86920

== ENCOUNTER 2018-12-30 11:34 | Emergency (ER) | payer MEDICARE ==
[2018-12-30] MEDS ORDERED: SODIUM CHLORIDE 0.9% 500 ML 500 ML IV STA (12:10)
[2018-12-30] MEDS ORDERED: PANTOPRAZOLE 40 MG/10 ML VIAL IVP STA (12:10)
[2018-12-30 12:51] LABS: Albumin 3.8 g/dL (3.5-5.0); Calcium 9.5 mg/dL (8.4-10.2); HCT 32.5 % (34.0-46.0); HGB 10.5 gm/dL (11.4-16.0); Hypochromasia Slight; MCH 31.2 pg (25.0-35.0); MCHC 32.2 g/dL (31.0-37.0); MCV 96.9 fL (80.0-100.0); Mean Platelet Volume 7.2; Potassium 4.8 mmol/L (3.5-5.1); RBC 3.36 m/uL (3.80-5.40); RDW 14.2 % (11.5-15.5); Total Protein 7.2 g/dL (6.3-8.2); WBC 12.5 k/uL (3.8-10.6)
--- NOTE | 2018-12-30 12:56 | ED ---
General Adult HPI - General Chief complaint: GI Bleed Stated complaint: bloody stool, abnormal labs Time Seen by Provider: 12/30/18 11:51 Source: patient Mode of arrival: ambulatory Limitations: no limitations - History of Present Illness Initial comments: Dictation was produced using [employer] dictation software. please excuse any gramma tical, word or spelling errors. Chief Complaint: She is 58-year-old female with history of portal stent presents with GI bleed. History of Present Illness: 58-year-old female she presents with bleeding. Patient states she's on eliquis. Patient was found to have a blood clot and a shunt. She states she has a gastrointestinal shunt was placed when she was the age of 16. She reports that this shunt is connecting 2 vessels in her abdomen and is preventing her from having severe GI bleed. Patient was recently diagnosed with a blood clot in this shunt. She was admitted and recently discharged at [facility]. Patient was recently started on anticoagulation medications for this recently discovered clot. Patient has been out of the hospital for approximately 2-3 days. This morning she had a bowel movement was found to be black. States she did have abdominal pain but after having his bowel movement her abdominal pain improved. She is concerned that with this alleviation of abdominal pain that this blood clot had moved causing her significant anxiety. Concern for her life because she feels that if this blood clot moved distally that it could threaten her life. Patient has no other complaints at this time. The ROS documented in this emergency department record has been reviewed and confirmed by me. Those systems with pertinent positive or negative responses have been documented in the HPI. All other systems are other negative and/or noncontributory. PHYSICAL EXAM: General Impression: Alert and oriented x3, not in acute distress HEENT: Normocephalic atraumatic, extra-ocular movements intact, pupils equal and reactive to light bilaterally, mucous membranes moist. Cardiovascular: Heart regular rate and rhythm, S1&S2 audible, no murmurs, rubs or gallops Chest: Lungs clear to auscultation bilaterally, no rhonchi, no wheeze, no rales Abdomen: Bowel sounds present, abdomen soft, non-tender, non-distended, no organomegaly Musculoskeletal: Pulses present and equal in all extremities, no peripheral edema Motor: no focal deficits noted Neurological: CN II-XII grossly intact, no focal motor or sensory deficits noted Skin: Intact with no visualized rashes Psych: Anxious and tearful Rectal exam: Dark stool noted in the rectal vault couple masses with digital rectal exam ED course: 78-year-old female she has some sort of shunt that was placed at the age of 16 that prevents her from having significant GI bleed. This was done after she had a splenectomy as a pediatric patient. She is a recently discovered blood clot in this shunt that she was placed on Noemí correlation medications for. Patient was recently discharged from [facility]. Since today with black stool. On arrival shows heart rate of 117, worse vital signs within acceptable limits. She unable to provide more details as to what this shunt is connecting. Return evaluation obtained. Hemoglobin stable at 10.5, mild leukocytosis of 12.5. Metabolic panel is unremarkable.. Metabolic panel is unremarkable. Stool occult blood positive. Abdominal x-ray is nonacute. She does not have a specific surgeon that we can call regarding this shunt and intermittent. Discussed patient case with our vascular surgeon Dr. Alvarez who recommends discussion with [facility]. Family requests that we contact Dr. Sagastume regarding patient's care. Discussed patient case with Dr. Sagastume who also recommends patient be transferred back to [facility] Discussed patient case with [facility] Dr. Davila who is willing to accept patients care. Family and patient are understandable and agreeable to disposition. Patient clinically stable at this time. I do feel patient would benefit from short inpatient stay for hemoglobin trending and medical monitor. EKG interpretation: Ventricular rate 96, normal sinus rhythm, TX interval 170, QRS 76, QTC 437. No TX prolongation, no QTC prolongation, no ST or T-wave changes noted. Overall, this EKG is unremarkable - Related Data Home Medications Medication Instructions Recorded Confirmed HYDROcodone/APAP 7.5-325MG [[place] 1 tab PO TID PRN 05/02/16 12/30/18 7.5-325] rOPINIRole HCL [Requip] 0.5 mg PO TID 10/29/16 12/30/18 Disulfiram [Antabuse] 250 mg PO DAILY 12/15/18 12/30/18 Ipratropium-Albuterol Nebulize 3 ml INHALATION RT-QID PRN 12/15/18 12/30/18 [Duoneb 0.5 mg-3 mg/3 ml Soln] Pantoprazole [Protonix] 40 mg PO DAILY 12/15/18 12/30/18 traZODone HCL 50 mg PO HS 12/15/18 12/30/18 Albuterol Inhaler [Ventolin Hfa 2 puff INHALATION RT-Q6H PRN 12/30/18 12/30/18 Inhaler] Apixaban [Eliquis] 5 mg PO BID 12/30/18 12/30/18 Folic Acid 1 mg PO DAILY 12/30/18 12/30/18 Allergies Allergy/AdvReac Type Severity Reaction Status Date / Time aspirin AdvReac Bleeding Verified 12/30/18 13:09 disorder as a child Review of Systems ROS Statement: Those systems with pertinent positive or pertinent negative responses have been documented in the HPI. ROS Other: All systems not noted in ROS Statement are negative. 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/had fall from a slide, left knee goes out sometimes History of Any Multi-Drug Resistant Organisms: None Reported Past Surgical History: Cholecystectomy Additional Past Surgical History / Comment(s): splenectomy, portal shunt in abdomen age 16, sole cataracts Past Anesthesia/Blood Transfusion Reactions: Motion Sickness Additional Past Anesthesia/Blood Transfusion Reaction / Comment(s): motion sickness in elevator Past Psychological History: No Psychological Hx Reported Smoking Status: Current every day smoker - Past Family History Father Family Medical History: Cancer Additional Family Medical History / Comment(s): colon cancer Mother Family Medical History: Deep Vein Thrombosis (DVT) Additional Family Medical History / Comment(s): emphysema General Exam Limitations: no limitations Course Vital Signs 12/30/18 12/30/18 12/30/18 11:44 12:27 13:00 Temperature 98.2 F Pulse Rate 117 H 100 100 Respiratory 16 17 18 Rate Blood Pressure 143/75 127/88 O2 Sat by Pulse 98 93 L 99 Oximetry 12/30/18 12/30/18 13:38 14:00 Temperature Pulse Rate 85 98 Respiratory 16 18 Rate Blood Pressure 127/88 O2 Sat by Pulse 98 100 Oximetry Medical Decision Making - Lab Data Result diagrams: 12/30/18 12:29 12/30/18 12:29 Lab Results 12/30/18 12/30/18 12/30/18 Range/Units 12:29 12:29 12:29 WBC 12.5 H (3.8-10.6) k/uL RBC 3.36 L (3.80-5.40) m/uL Hgb 10.5 L (11.4-16.0) gm/dL Hct 32.5 L (34.0-46.0) % MCV 96.9 (80.0-100.0) fL MCH 31.2 (25.0-35.0) pg MCHC 32.2 (31.0-37.0) g/dL RDW 14.2 (11.5-15.5) % Plt Count 845 H D (150-450) k/uL Neutrophils % (Manual) 56 % Lymphocytes % (Manual) 34 % Monocytes % (Manual) 8 % Eosinophils % (Manual) 2 % Neutrophils # (Manual) 7.00 (1.3-7.7) k/uL Lymphocytes # (Manual) 4.25 (1.0-4.8) k/uL Monocytes # (Manual) 1.00 (0-1.0) k/uL Eosinophils # (Manual) 0.25 (0-0.7) k/uL Nucleated RBCs 0 (0-0) /100 WBC Manual Slide Review Performed Hypochromasia Slight APTT 24.1 (22.0-30.0) sec Sodium 140 (137-145) mmol/L Potassium 4.8 (3.5-5.1) mmol/L Chloride 105 (98-107) mmol/L Carbon Dioxide 24 (22-30) mmol/L Anion Gap 11 mmol/L BUN 14 (7-17) mg/dL Creatinine 0.84 (0.52-1.04) mg/dL Est GFR (CKD-EPI)AfAm 89 (>60 ml/min/1.73 sqM) Est GFR (CKD-EPI)NonAf 77 (>60 ml/min/1.73 sqM) Glucose 101 H (74-99) mg/dL Calcium 9.5 (8.4-10.2) mg/dL Magnesium 2.0 (1.6-2.3) mg/dL Total Bilirubin 1.0 (0.2-1.3) mg/dL AST 48 H (14-36) U/L ALT 68 H (9-52) U/L Alkaline Phosphatase 212 H (38-126) U/L Troponin I (0.000-0.034) ng/mL Total Protein 7.2 (6.3-8.2) g/dL Albumin 3.8 (3.5-5.0) g/dL Stool Occult Blood (Negative) Blood Type Blood Type Recheck Bld Type Recheck Status Antibody Screen Spec Expiration Date 12/30/18 12/30/18 12/30/18 Range/Units 12:29 12:29 12:46 WBC (3.8-10.6) k/uL RBC (3.80-5.40) m/uL Hgb (11.4-16.0) gm/dL Hct (34.0-46.0) % MCV (80.0-100.0) fL MCH (25.0-35.0) pg MCHC (31.0-37.0) g/dL RDW (11.5-15.5) % Plt Count (150-450) k/uL Neutrophils % (Manual) % Lymphocytes % (Manual) % Monocytes % (Manual) % Eosinophils % (Manual) % Neutrophils # (Manual) (1.3-7.7) k/uL Lymphocytes # (Manual) (1.0-4.8) k/uL Monocytes # (Manual) (0-1.0) k/uL Eosinophils # (Manual) (0-0.7) k/uL Nucleated RBCs (0-0) /100 WBC Manual Slide Review Hypochromasia APTT (22.0-30.0) sec Sodium (137-145) mmol/L Potassium (3.5-5.1) mmol/L Chloride (98-107) mmol/L Carbon Dioxide (22-30) mmol/L Anion Gap mmol/L BUN (7-17) mg/dL Creatinine (0.52-1.04) mg/dL Est GFR (CKD-EPI)AfAm (>60 ml/min/1.73 sqM) Est GFR (CKD-EPI)NonAf (>60 ml/min/1.73 sqM) Glucose (74-99) mg/dL Calcium (8.4-10.2) mg/dL Magnesium (1.6-2.3) mg/dL Total Bilirubin (0.2-1.3) mg/dL AST (14-36) U/L ALT (9-52) U/L Alkaline Phosphatase (38-126) U/L Troponin I <0.012 (0.000-0.034) ng/mL Total Protein (6.3-8.2) g/dL Albumin (3.5-5.0) g/dL Stool Occult Blood Positive H (Negative) Blood Type A Positive Blood Type Recheck A Pos Bld Type Recheck Status No Antibody Screen NEGATIVE Spec Expiration Date 01/02/20192328 Disposition Clinical Impression: GI bleed, Thrombosis of splenorenal shunt Disposition: OTHER INSTITUTION NOT DEFINED Condition: Fair Referrals: Estiven Sagastume MD [Primary Care Provider] - 1-2 days Time of Disposition: 15:20 - Out of Hospital Transfer - Req. Specs Out of Hospital Transfer - Requested Specifics: Other Emergency Center ([facility])
[2018-12-30 13:38] LABS: Eosinophils # (M) 0.25 k/uL (0-0.7); Lymphocytes # (M) 4.25 k/uL (1.0-4.8); Neutrophils % (M) 56 %; Nucleated Red Blood Cells 0 /100 WBC (0-0); Platelet Count 845 k/uL (150-450); Total Cells Counted 100
--- NOTE | 2018-12-30 13:50 | XR ---
EXAMINATION TYPE: XR abdomen acute w cxr , 4 VIEWS DATE OF EXAM ORDERED: 12/30/2018 HISTORY: black stool. COMPARISON: None. FINDINGS: There is questionable infiltrate at the right lung base. The left lung is clear. Pleural s pace are clear. The heart is not enlarged. Within the abdomen, there is a left upper quadrant surgery. The abdominal gas pattern is normal. Ther e is no evidence of obstruction or free air. There are phleboliths within the pelvis. IMPRESSION: 1. I CANNOT EXCLUDE THE RIGHT LOWER LOBE INFILTRATE. 2. POSTSURGICAL CHANGE. 3. NONOBSTRUCTIVE BOWEL GAS PATTERN.
[2018-12-30] MEDS ORDERED: hydrOXYzine HCL 25 MG TAB PO STA (15:12)
[2018-12-30] MEDS ORDERED: DEXAMETHASONE 4 MG TAB PO STA (15:12)
[2018-12-30 15:49] VITALS: BP 126/80; PULSE 85; RESP 19; TEMP 98
== END 2018-12-30 16:32 | disposition short-term general hospital (02) ==
LOC: EC 11:34
DX: T82.868A Thrombosis due to vascular prosthetic devices, implants and grafts, initial encounter (principal); D72.829 Elevated white blood cell count, unspecified; R19.5 Other fecal abnormalities; F41.9 Anxiety disorder, unspecified; G25.81 Restless legs syndrome; F17.200 Nicotine dependence, unspecified, uncomplicated; Z88.6 Allergy status to analgesic agent; Z79.01 Long term (current) use of anticoagulants; Z79.899 Other long term (current) drug therapy; Z87.19 Personal history of other diseases of the digestive system; Z90.49 Acquired absence of other specified parts of digestive tract; Z90.81 Acquired absence of spleen; Z80.0 Family history of malignant neoplasm of digestive organs; Z82.49 Family history of ischemic heart disease and other diseases of the circulatory system
CPT/HCPCS: 36415; 93005; 86900; 86901; 80053; 83735; 84484; 85025; 85730; 86850; 82272; 74022; 99285; 96374; 96361 ×3; J8540; C9113

== ENCOUNTER 2019-01-06 06:53 | Observation (INO) | payer MEDICARE ==
[2019-01-06] MEDS ORDERED: SODIUM CHLORIDE 0.9% 1,000 ML IV STA ×2 (07:29)
--- NOTE | 2019-01-06 07:35 | ED ---
Weakness HPI - General Source: patient, EMS, RN notes reviewed, old records reviewed Mode of arrival: EMS Limitations: no limitations <Elly Mc - Last Filed: 01/06/19 09:52> <Erasto Hubbard - Last Filed: 01/06/19 10:01> - General Chief complaint: Weakness Stated complaint: GI Complications Time Seen by Provider: 01/06/19 06:55 - History of Present Illness Initial comments: Patient is a 58-year-old female, who presents emergency Department today with generalized weakness, complaints of a warm feeling in her mid abdomen. He also states that upon arrival here she's felt a heaviness on her chest. She denies any cardiac history. Patient states that her symptoms started around 5:30 this morning. Patient relates that she has had a abdominal shunt, unable to tell me exactly what that shunt, but reports that she's had history of clot within the shunt. She is on blood thinners. She states that she was discharged from [facility] with complications from a GI bleed last week. Patient states that she's had no further bloody stools or any changes in regards to nausea or vomiting. Patient states that she's had a new anxiety medication, Celexa was started for her yesterday. Patient states that she has had some just generalized anxiety as well. Pus medical history includes cholecystectomy, s plenectomy with the portal shunt in her abdomen age 16. is a smoker. (Elly Mc) - Related Data Home Medications Medication Instructions Recorded Confirmed HYDROcodone/APAP 7.5-325MG [[place] 1 tab PO TID 05/02/16 01/06/19 7.5-325] rOPINIRole HCL [Requip] 0.5 mg PO TID 10/29/16 01/06/19 Disulfiram [Antabuse] 250 mg PO DAILY 12/15/18 01/06/19 Ipratropium-Albuterol Nebulize 3 ml INHALATION RT-QID PRN 12/15/18 01/06/19 [Duoneb 0.5 mg-3 mg/3 ml Soln] Pantoprazole [Protonix] 40 mg PO DAILY 12/15/18 01/06/19 Albuterol Inhaler [Ventolin Hfa 2 puff INHALATION RT-Q6H PRN 12/30/18 01/06/19 Inhaler] Apixaban [Eliquis] 5 mg PO BID@1130,1600 12/30/18 01/06/19 Folic Acid 1 mg PO DAILY 12/30/18 01/06/19 Citalopram Hydrobromide [CeleXA] 20 mg PO DAILY@1130 01/06/19 01/06/19 Allergies Allergy/AdvReac Type Severity Reaction Status Date / Time aspirin AdvReac Bleeding Verified 01/06/19 08:52 disorder as a child Review of Systems ROS Other: All systems not noted in ROS Statement are negative. <Elly Mc - Last Filed: 01/06/19 09:52> ROS Other: All systems not noted in ROS Statement are negative. <Erasto Hubbard - Last Filed: 01/06/19 10:01> ROS Statement: Those systems with pertinent positive or pertinent negative responses have been documented in the HPI. 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", GI b leed from age 8-teen-from ruptured spleen/had fall from a slide, left knee goes out sometimes History of Any Multi-Drug Resistant Organisms: None Reported Past Surgical History: Cholecystectomy Additional Past Surgical History / Comment(s): splenectomy, portal shunt in abdomen age 16, sole cataracts Past Anesthesia/Blood Transfusion Reactions: Motion Sickness Additional Past Anesthesia/Blood Transfusion Reaction / Comment(s): motion sickness in elevator Past Psychological History: No Psychological Hx Reported Smoking Status: Current every day smoker Past Alcohol Use History: None Reported Past Drug Use History: None Reported - Past Family History Father Family Medical History: Cancer Additional Family Medical History / Comment(s): colon cancer Mother Family Medical History: Deep Vein Thrombosis (DVT) Additional Family Medical History / Comment(s): emphysema <Elly Mc - Last Filed: 01/06/19 09:52> General Exam Limitations: no limitations General appearance: alert, in no apparent distress Head exam: Present: atraumatic, normocephalic, normal inspection Eye exam: Present: normal appearance, PERRL, EOMI. Absent: scleral icterus, conjunctival injection, periorbital swelling ENT exam: Present: normal exam, mucous membranes moist Neck exam: Present: normal inspection. Absent: tenderness, meningismus, lymphadenopathy Respiratory exam: Present: normal lung sounds bilaterally. Absent: respiratory distress, wheezes, rales, rhonchi, stridor Cardiovascular Exam: Present: regular rate, normal rhythm, normal heart sounds. Absent: systolic murmur, diastolic murmur, rubs, gallop, clicks GI/Abdominal exam: Present: soft, tenderness (epiGastric), normal bowel sounds. Absent: distended, guarding, rebound, rigid Extremities exam: Present: normal inspection, full ROM, normal capillary refill. Absent: tenderness, pedal edema, joint swelling, calf tenderness Back exam: Present: normal inspection Neurological exam: Present: alert, oriented X3, CN II-XII intact Psychiatric exam: Present: normal affect, normal mood <Elly Mc - Last Filed: 01/06/19 09:52> - General Exam Comments Initial Comments: 38-year-old female. Alert and oriented 3. No significant distress. (Elly Mosher) Course Vital Signs 01/06/19 06:57 Temperature 97.6 F Pulse Rate 98 Respiratory 18 Rate Blood Pressure 156/92 O2 Sat by Pulse 98 Oximetry Medical Decision Making - Lab Data Result diagrams: 01/06/19 07:50 01/06/19 07:50 - Radiology Data Radiology results: report reviewed <Elly cM - Last Filed: 01/06/19 09:52> - Lab Data Result diagrams: 01/06/19 07:50 01/06/19 07:50 <Erasto Hubbard - Last Filed: 01/06/19 10:01> - Medical Decision Making 58-year-old female presents emergency department today for evaluation with complaints of epigastric pain which is chronic, general weakness. Upon arriving here she complains of chest pain. At this time his EKG is reviewed negative for any acute process. Initial troponin is negative. Patient's hemoglobin and vital signs are stable. Patient still occult was negative. At this time Patient chest x-ray shows questionable right middle lobe infiltrate however Patient has no coughing or significant shortness of breath. KUB shows objective bowel gas pattern. Patient was informed of the findings. She was reevaluated and resting comfortably in bed. He is playing some mild chest pressure. With history of smoking, and risk factors of multiple comorbidities Patient will be kept for observation for cardiac monitoring. Patient's case was discussed with Dr. Hubbard from discussed the case with Dr. Pride. (Elly Mc) Case discussed with practitioner Elly. Chart and results reviewed. Case also discussed with Dr. Gallagher, who will admit covering for Dr. Sagastume. (Erasto Hubbard) - Lab Data Lab Results 01/06/19 01/06/19 01/06/19 Range/Units 07:50 07:50 07:50 WBC 13.5 H (3.8-10.6) k/uL RBC 3.48 L (3.80-5.40) m/uL Hgb 10.4 L (11.4-16.0) gm/dL Hct 33.7 L (34.0-46.0) % MCV 96.9 (80.0-100.0) fL MCH 29.9 (25.0-35.0) pg MCHC 30.8 L (31.0-37.0) g/dL RDW 14.3 (11.5-15.5) % Plt Count 801 H (150-450) k/uL Neutrophils % 69 % Lymphocytes % 20 % Monocytes % 5 % Eosinophils % 3 % Basophils % 1 % Neutrophils # 9.3 H (1.3-7.7) k/uL Lymphocytes # 2.7 (1.0-4.8) k/uL Monocytes # 0.7 (0-1.0) k/uL Eosinophils # 0.4 (0-0.7) k/uL Basophils # 0.1 (0-0.2) k/uL PT 9.3 (9.0-12.0) sec INR 0.8 (<1.2) APTT 25.3 (22.0-30.0) sec Sodium 139 (137-145) mmol/L Potassium 4.5 (3.5-5.1) mmol/L Chloride 106 (98-107) mmol/L Carbon Dioxide 23 (22-30) mmol/L Anion Gap 10 mmol/L BUN 18 H (7-17) mg/dL Creatinine 0.80 (0.52-1.04) mg/dL Est GFR (CKD-EPI)AfAm >90 (>60 ml/min/1.73 sqM) Est GFR (CKD-EPI)NonAf 82 (>60 ml/min/1.73 sqM) Glucose 99 (74-99) mg/dL Calcium 9.6 (8.4-10.2) mg/dL Magnesium 2.0 (1.6-2.3) mg/dL Total Bilirubin 0.6 (0.2-1.3) mg/dL AST 43 H (14-36) U/L ALT 53 H (9-52) U/L Alkaline Phosphatase 205 H (38-126) U/L Troponin I (0.000-0.034) ng/mL NT-Pro-B Natriuret Pep pg/mL Total Protein 7.0 (6.3-8.2) g/dL Albumin 3.6 (3.5-5.0) g/dL Amylase 51 (30-110) U/L Lipase 246 (23-300) U/L Stool Occult Blood (Negative) 01/06/19 01/06/19 01/06/19 Range/Units 07:50 07:50 09:00 WBC (3.8-10.6) k/uL RBC (3.80-5.40) m/uL Hgb (11.4-16.0) gm/dL Hct (34.0-46.0) % MCV (80.0-100.0) fL MCH (25.0-35.0) pg MCHC (31.0-37.0) g/dL RDW (11.5-15.5) % Plt Count (150-450) k/uL Neutrophils % % Lymphocytes % % Monocytes % % Eosinophils % % Basophils % % Neutrophils # (1.3-7.7) k/uL Lymphocytes # (1.0-4.8) k/uL Monocytes # (0-1.0) k/uL Eosinophils # (0-0.7) k/uL Basophils # (0-0.2) k/uL PT (9.0-12.0) sec INR (<1.2) APTT (22.0-30.0) sec Sodium (137-145) mmol/L Potassium (3.5-5.1) mmol/L Chloride (98-107) mmol/L Carbon Dioxide (22-30) mmol/L Anion Gap mmol/L BUN (7-17) mg/dL Creatinine (0.52-1.04) mg/dL Est GFR (CKD-EPI)AfAm (>60 ml/min/1.73 sqM) Est GFR (CKD-EPI)NonAf (>60 ml/min/1.73 sqM) Glucose (74-99) mg/dL Calcium (8.4-10.2) mg/dL Magnesium (1.6-2.3) mg/dL Total Bilirubin (0.2-1.3) mg/dL AST (14-36) U/L ALT (9-52) U/L Alkaline Phosphatase (38-126) U/L Troponin I <0.012 (0.000-0.034) ng/mL NT-Pro-B Natriuret Pep 177 pg/mL Total Protein (6.3-8.2) g/dL Albumin (3.5-5.0) g/dL Amylase (30-110) U/L Lipase (23-300) U/L Stool Occult Blood Negative (Negative) 01/06/19 07:51 EKG shows normal sinus rhythm, normal EKG. Ventricular rate of 84 bpm. Pulse 180 ms. QRS duration is 76 most seconds. QT QTc is 354/418 ms. (Elly Mc) - Radiology Data Chest x-ray cannot exclude a right middle lobe infiltrate. X-ray shows on instructing abdominal gas pattern. Postsurgical changes noted. No biliary stent drain read by Dr. Hernández. (Elly Mc) Disposition Is patient prescribed a controlled substance at d/c from ED?: No Time of Disposition: 09:55 <Elly Mc - Last Filed: 01/06/19 09:52> <Erasto Hubbard - Last Filed: 01/06/19 10:01> Clinical Impression: Chest pain, Chronic abdominal pain Disposition: ADMITTED IP TO THIS HOSP Condition: Stable Referrals: Estiven Sagastume MD [Primary Care Provider] - 1-2 days
[2019-01-06 08:01] LABS: Basophils # (A) 0.1 k/uL (0-0.2); Basophils % (A) 1 %; Eosinophils # (A) 0.4 k/uL (0-0.7); Eosinophils % (A) 3 %; HCT 33.7 % (34.0-46.0); HGB 10.4 gm/dL (11.4-16.0); Lymphocytes # (A) 2.7 k/uL (1.0-4.8); Lymphocytes % (A) 20 %; MCH 29.9 pg (25.0-35.0); MCHC 30.8 g/dL (31.0-37.0); MCV 96.9 fL (80.0-100.0); Mean Platelet Volume 7.1; Monocytes # (A) 0.7 k/uL (0-1.0); Monocytes % (A) 5 %; Neutrophils # (A) 9.3 k/uL (1.3-7.7); Neutrophils % (A) 69 %; Platelet Count 801 k/uL (150-450); RBC 3.48 m/uL (3.80-5.40); RDW 14.3 % (11.5-15.5); WBC 13.5 k/uL (3.8-10.6)
[2019-01-06 08:09] LABS: ALT 53 U/L (9-52); AST 43 U/L (14-36); African American GFR (CKD) >90 (>60 ml/min/1.73 sqM); Albumin 3.6 g/dL (3.5-5.0); Alkaline Phosphatase 205 U/L (38-126); Amylase 51 U/L (30-110); Anion Gap 10 mmol/L; Blood Urea Nitrogen 18 mg/dL (7-17); Calcium 9.6 mg/dL (8.4-10.2); Carbon Dioxide 23 mmol/L (22-30); Chloride 106 mmol/L (98-107); Glucose 99 mg/dL (74-99); INR 0.8 (<1.2); Non-African American GFR(CKD) 82 (>60 ml/min/1.73 sqM); Partial Thromboplastin Time 25.3 sec (22.0-30.0); Potassium 4.5 mmol/L (3.5-5.1); Prothrombin Time 9.3 sec (9.0-12.0); Sodium 139 mmol/L (137-145); Total Bilirubin 0.6 mg/dL (0.2-1.3)
--- NOTE | 2019-01-06 08:43 | XR ---
EXAMINATION TYPE: XR chest 2V DATE OF EXAM: 01/06/2019 HISTORY: Chest Pain. REFERENCE: Previous study dated 12/30/2018. FINDINGS: There continues to be some increased density at the right lung base. The left lung is clear . Pleural space are clear. The heart is not enlarged. There is been previous epigastric surgery. IMPRESSION: I CANNOT EXCLUDE A RIGHT MIDDLE LOBE INFILTRATE
--- NOTE | 2019-01-06 08:45 | XR ---
EXAMINATION TYPE: XR KUB , 2 VIEWS DATE OF EXAM ORDERED: 01/06/2019 HISTORY: hx constipation. COMPARISON: Previous study dated 12/30/2018. FINDINGS: Right middle lobe infiltrate is less clearly seen on this study. There is been previous epigastric surgery. There is a nonobstructing abdominal gas pattern. No eviden ce of obstruction or free air. No unusual calcifications are seen. There is a biliary stent in place. There is internal biliary drain in place. This is unchanged from previous. IMPRESSION: 1. NONOBSTRUCTING ABDOMINAL GAS PATTERN. 2. POSTSURGICAL CHANGE. 3. NO BILIARY STENT AND DRAIN.
[2019-01-06] MEDS ORDERED: NITROGLYCERIN SL TABS 0.4 MG TAB SUBLINGUAL PRN (09:55)
[2019-01-06] MEDS ORDERED: ASPIRIN 81 MG PO STA (09:55)
[2019-01-06] MEDS ORDERED: HYDROcodone/APAP 7.5-325MG 1 EACH TAB PO PRN (11:17)
[2019-01-06] MEDS ORDERED: ALBUTEROL INHALER 60 PUFF/8 GM INHALER INHALATION PRN (11:40)
[2019-01-06] MEDS ORDERED: IPRATROPIUM-ALBUTEROL 3 ML NEB INHALATION PRN (11:40)
[2019-01-06] MEDS ORDERED: LACTULOSE 20 GM/30 ML CUP PO ONE (13:32)
[2019-01-06] MEDS ORDERED: traMADol 50 MG TAB PO PRN (13:41)
[2019-01-06] MEDS: DOCUSATE 100 MG CAP PO PRN (14:04)
--- NOTE | 2019-01-06 14:06 | P.HPIM ---
History of Present Illness 58-year-old female was admitted for rule out acute medicine syndromes. Although patient denied any compensative chest pain patient is complaining of generalized weakness and warm feeling in the abdomen patient doesn't give me a clear history of acid reflux. Patient appears to be constipated with the distended abdomen tympanic. Patient has chronic back pain for which patient is on [place] and patient does have chronic constipation from [place]. Patient denied nausea vomiting fevers chills. Patient evidently had a GI bleed was recently discharged from [facility] last week patient is on Protonix which will be continued. Review of Systems REVIEW OF SYSTEMS: CONSTITUTIONAL: No fever, HEENT: No recent visual problems or hearing problems. Denied any sore throat. CARDIOVASCULAR: No chest pain, orthopnea, PND, no palpitations, no syncope. PULMONARY: No shortness of breath, no cough, no hemoptysis. GASTROINTESTINAL: As mentioned in HPI NEUROLOGICAL: No headaches, no weakness, no numbness. HEMATOLOGICAL: Denies any bleeding or petechiae. GENITOURINARY: Denies any burning micturition, frequency, or urgency. MUSCULOSKELETAL/RHEUMATOLOGICAL: Denies any joint pain, swelling, or any muscle pain. ENDOCRINE: Denies any polyuria or polydipsia. The rest of the 14-point review of systems is negative. 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", GI ble ed from age 8-teen-from ruptured spleen/had fall from a slide, left knee goes out sometimes History of Any Multi-Drug Resistant Organisms: None Reported Past Surgical History: Cholecystectomy Additional Past Surgical History / Comment(s): splenectomy, portal shunt in abdomen age 16, sole cataracts Past Anesthesia/Blood Transfusion Reactions: Motion Sickness Additional Past Anesthesia/Blood Transfusion Reaction / Comment(s): motion sickness in elevator Past Psychological History: No Psychological Hx Reported Additional Psychological History / Comment(s): denies Smoking Status: Current every day smoker Past Alcohol Use History: None Reported Additional Past Alcohol Use History / Comment(s): started smoking 1974 , smoking 1 03/15 PPD, hx alcohol abuse-none since past month Past Drug Use History: None Reported - Past Family History Father Family Medical History: Cancer Additional Family Medical History / Comment(s): colon cancer Mother Family Medical History: Deep Vein Thrombosis (DVT) Additional Family Medical History / Comment(s): emphysema Medications and Allergies Home Medications Medication Instructions Recorded Confirmed Type HYDROcodone/APAP 7.5-325MG [[place] 1 tab PO TID 05/02/16 01/06/19 History 7.5-325] rOPINIRole HCL [Requip] 0.5 mg PO TID 10/29/16 01/06/19 History Disulfiram [Antabuse] 250 mg PO DAILY 12/15/18 01/06/19 History Ipratropium-Albuterol Nebulize 3 ml INHALATION RT-QID PRN 12/15/18 01/06/19 History [Duoneb 0.5 mg-3 mg/3 ml Soln] Pantoprazole [Protonix] 40 mg PO DAILY 12/15/18 01/06/19 History Albuterol Inhaler [Ventolin Hfa 2 puff INHALATION RT-Q6H PRN 12/30/18 01/06/19 History Inhaler] Apixaban [Eliquis] 5 mg PO BID@1130,1600 12/30/18 01/06/19 History Folic Acid 1 mg PO DAILY 12/30/18 01/06/19 History Citalopram Hydrobromide [CeleXA] 20 mg PO DAILY@1130 01/06/19 01/06/19 History Allergies Allergy/AdvReac Type Severity Reaction Status Date / Time aspirin AdvReac Bleeding Verified 01/06/19 08:52 disorder as a child Physical Exam Vitals: Vital Signs Temp Pulse Pulse Resp BP BP Pulse Ox 01/06/19 12:00 18 01/06/19 11:06 97.8 F 79 18 114/75 99 01/06/19 11:05 82 18 121/89 98 01/06/19 10:52 82 18 121/89 99 01/06/19 06:57 97.6 F 98 18 156/92 98 Intake and Output 01/05/19 01/06/19 01/06/19 22:59 06:59 14:59 Intake Total 236 Balance 236 Intake: Oral 236 Other: Weight 68.946 kg PHYSICAL EXAMINATION: GENERAL: The patient is alert and oriented x3, not in any acute distress. Well developed, well nourished. HEENT: Pupils are round and equally reacting to light. EOMI. No scleral icterus. No conjunctival pallor. Normocephalic, atraumatic. No pharyngeal erythema. No thyromegaly. CARDIOVASCULAR: S1 and S2 present. No murmurs, rubs, or gallops. PULMONARY: Chest is clear to auscultation, no wheezing or crackles. ABDOMEN: Abdomen is distended and tympanic appears to have constipation sluggish bowel sounds MUSCULOSKELETAL: No joint swelling or deformity. EXTREMITIES: No cyanosis, clubbing, or pedal edema. NEUROLOGICAL: Gross neurological examination did not reveal any focal deficits. SKIN: No rashes. Results CBC & Chem 7: 01/06/19 07:50 01/06/19 07:50 Labs: Abnormal Lab Results - Last 24 Hours (Table) 01/06/19 01/06/19 Range/Units 07:50 07:50 WBC 13.5 H (3.8-10.6) k/uL RBC 3.48 L (3.80-5.40) m/uL Hgb 10.4 L (11.4-16.0) gm/dL Hct 33.7 L (34.0-46.0) % MCHC 30.8 L (31.0-37.0) g/dL Plt Count 801 H (150-450) k/uL Neutrophils # 9.3 H (1.3-7.7) k/uL BUN 18 H (7-17) mg/dL AST 43 H (14-36) U/L ALT 53 H (9-52) U/L Alkaline Phosphatase 205 H (38-126) U/L Thrombosis Risk Factor Assmnt - Choose All That Apply Any of the Below Risk Factors Present?: Yes Each Factor Represents 1 point: Age 41-60 years Other Risk Factors: No Thrombosis Risk Factor Assessment Total Risk Factor Score: 1 Thrombosis Risk Factor Assessment Level: Low Risk Assessment and Plan Plan: Abdominal discomfort: Appears to be secondary to constipation patient has only mild discomfort will use MiraLAX and lactulose. Patient denied any chest pain although repeat troponins were ordered which will continue. Patient will be switched from [place] 2 tramadol as ibuprofen doesn't work for her as per the patient. -Leukocytosis reactive no evidence of infection -Generalized weakness and tiredness and etiology not clear will obtain TSH further workup as an outpatient. Nicotine abuse: Counseling was provided Deep vein thrombosis for which patient underwent a coagulation which will be continued
[2019-01-06] MEDS: APIXABAN 5 MG TAB PO SCH (16:02)
--- NOTE | 2019-01-06 17:44 | P.CRDCN ---
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 It appears that patient has been in and out of the hospital for the last several weeks. Patient appears to be depressed. Patient was discussing this with her primary care physician yesterday. Apparently she felt depressed and has if she is going to today. She did not feel well. Whole upper chest felt heavy. Patient was started on Celexa yest erday. She denied any previous cardiac history. Sr. be fairly comfortable at this time. Symptoms are very vague. Her EKG did not reveal any acute changes. Cardiac enzymes are negative. At this point, or symptoms are nonspecific. We'll get an echocardiogram to assess LV function. 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/had fall from a slide, left knee goes out sometimes History of Any Multi-Drug Resistant Organisms: None Reported Past Surgical History: Cholecystectomy Additional Past Surgical History / Comment(s): splenectomy, portal shunt in abdomen age 16, sole cataracts Past Anesthesia/Blood Transfusion Reactions: Motion Sickness Additional Past Anesthesia/Blood Transfusion Reaction / Comment(s): motion sickness in elevator Past Psychological History: No Psychological Hx Reported Additional Psychological History / Comment(s): denies Smoking Status: Current every day smoker Past Alcohol Use History: None Reported Additional Past Alcohol Use History / Comment(s): started smoking 1974 , smoking 1 1/2 PPD, hx alcohol abuse-none since past month Past Drug Use History: None Reported - Past Family History Father Family Medical History: Cancer Additional Family Medical History / Comment(s): colon cancer Mother Family Medical History: Deep Vein Thrombosis (DVT) Additional Family Medical History / Comment(s): emphysema Medications and Allergies Home Medications Medication Instructions Recorded Confirmed Type HYDROcodone/APAP 7.5-325MG [[place] 1 tab PO TID 05/02/16 01/06/19 History 7.5-325] rOPINIRole HCL [Requip] 0.5 mg PO TID 10/29/16 01/06/19 History Disulfiram [Antabuse] 250 mg PO DAILY 12/15/18 01/06/19 History Ipratropium-Albuterol Nebulize 3 ml INHALATION RT-QID PRN 12/15/18 01/06/19 History [Duoneb 0.5 mg-3 mg/3 ml Soln] Pantoprazole [Protonix] 40 mg PO DAILY 12/15/18 01/06/19 History Albuterol Inhaler [Ventolin Hfa 2 puff INHALATION RT-Q6H PRN 12/30/18 01/06/19 History Inhaler] Apixaban [Eliquis] 5 mg PO BID@1130,1600 12/30/18 01/06/19 History Folic Acid 1 mg PO DAILY 12/30/18 01/06/19 History Citalopram Hydrobromide [CeleXA] 20 mg PO DAILY@1130 01/06/19 01/06/19 History Allergies Allergy/AdvReac Type Severity Reaction Status Date / Time aspirin AdvReac Bleeding Verified 01/06/19 08:52 disorder as a child Physical Exam Vitals: Vital Signs Temp Pulse Pulse Resp BP BP Pulse Ox 01/06/19 16:00 18 01/06/19 15:28 97.8 F 73 18 98/64 98 01/06/19 12:00 18 01/06/19 11:06 97.8 F 79 18 114/75 99 01/06/19 11:05 82 18 121/89 98 01/06/19 10:52 82 18 121/89 99 01/06/19 06:57 97.6 F 98 18 156/92 98 Intake and Output 01/06/19 01/06/19 01/06/19 06:59 14:59 22:59 Intake Total 236 840 Balance 236 840 Intake: Oral 236 840 Other: # Voids 1 Weight 68.946 kg GENERAL EXAM: Patient is alert and oriented and doesn't appear to be in any acute distress HEENT: Normocephalic. Normal reaction of pupils, equal size, normal range of extraocular motion. No erythema or exudates in the throat. NECK: No masses, no nuchal rigidity. CHEST: No chest wall deformity. LUNGS: Equal air entry with no crackles or wheeze. HEART: S1 and S2 normal with no audible mumurs or gallops. Regular rhythm, femorals equal on both sides.. ABDOMEN: Slightly distended SKIN: No rashes CENTRAL NERVOUS SYSTEM: No focal deficits. EXTREMITIES: No cyanosis, clubbing or edema. Results 01/06/19 07:50 01/06/19 07:50 Cardiac Enzymes 01/06/19 01/06/19 01/06/19 Range/Units 07:50 07:50 13:51 AST 43 H (14-36) U/L Troponin I <0.012 <0.012 (0.000-0.034) ng/mL Coagulation 01/06/19 Range/Units 07:50 PT 9.3 (9.0-12.0) sec APTT 25.3 (22.0-30.0) sec CBC 01/06/19 Range/Units 07:50 WBC 13.5 H (3.8-10.6) k/uL RBC 3.48 L (3.80-5.40) m/uL Hgb 10.4 L (11.4-16.0) gm/dL Hct 33.7 L (34.0-46.0) % Plt Count 801 H (150-450) k/uL Comprehensive Metabolic Panel 01/06/19 Range/Units 07:50 Sodium 139 (137-145) mmol/L Potassium 4.5 (3.5-5.1) mmol/L Chloride 106 (98-107) mmol/L Carbon Dioxide 23 (22-30) mmol/L BUN 18 H (7-17) mg/dL Creatinine 0.80 (0.52-1.04) mg/dL Glucose 99 (74-99) mg/dL Calcium 9.6 (8.4-10.2) mg/dL AST 43 H (14-36) U/L ALT 53 H (9-52) U/L Alkaline Phosphatase 205 H (38-126) U/L Total Protein 7.0 (6.3-8.2) g/dL Albumin 3.6 (3.5-5.0) g/dL Current Medications Generic Name Dose Route Start Last Admin Trade Name Freq PRN Reason Stop Dose Admin Albuterol/Ipratropium 3 ml 01/06/19 11:40 Duoneb 0.5 Mg-3 Mg/3 Ml Soln INHALATION RT-QID PRN Shortness Of Breath Apixaban 5 mg 01/06/19 16:00 01/06/19 16:02 Eliquis PO 5 mg BID@1130,1600 ARIANNE Administration Aspirin 325 mg 01/07/19 09:00 Aspirin PO DAILY [facility] Citalopram Hydrobromide 20 mg 01/07/19 11:30 Celexa PO DAILY@1130 ARIANNE Docusate Sodium 100 mg 01/06/19 13:32 01/06/19 14:04 Colace PO 100 mg DAILY PRN Administration Constipation Folic Acid 1 mg 01/07/19 09:00 Folic Acid PO DAILY [facility] Nitroglycerin 0.4 mg 01/06/19 09:55 Nitrostat SUBLINGUAL Q5M PRN Chest Pain Pantoprazole Sodium 40 mg 01/07/19 07:30 Protonix PO AC-BRKFST [facility] Polyethylene Glycol 17 gm 01/07/19 09:00 Miralax PO DAILY [facility] Ropinirole HCl 0.5 mg 01/06/19 21:00 Requip PO HS [facility] Tramadol HCl 50 mg 01/06/19 14:01 Ultram PO QID PRN Pain/Discomfort Intake and Output 01/06/19 01/06/19 01/06/19 06:59 14:59 22:59 Intake Total 236 840 Balance 236 840 Intake: Oral 236 840 Other: # Voids 1 Weight 68.946 kg 01/06/19 07:50 01/06/19 07:50 EKG Interpretations (text) Sinus rhythm Assessment and Plan (1) Chest pain Current Visit: Yes Status: Acute Code(s): R07.9 - CHEST PAIN, UNSPECIFIED SNOMED Code(s): 58630745 (2) Chronic abdominal pain Current Visit: Yes Status: Acute Code(s): R10.9 - UNSPECIFIED ABDOMINAL PAIN; G89.29 - OTHER CHRONIC PAIN SNOMED Code(s): 664849352 (3) Anemia associated with acute blood loss Current Visit: No Status: Acute Code(s): D62 - ACUTE POSTHEMORRHAGIC ANEMIA SNOMED Code(s): 255830165 (4) Cholelithiasis Current Visit: No Status: Acute Code(s): K80.20 - CALCULUS OF GALLBLADDER W/O CHOLECYSTITIS W/O OBSTRUCTION SNOMED Code(s): 205067128 Plan: Her chest pains appear to be atypical. Symptoms could be psychosomatic. So far cardiac enzymes are negative and EKGs are normal. We'll get an echocardiogram. If symptoms are controlled, patient may not need any further workup. Outpatient stress test could be considered
[2019-01-06] MEDS: traMADol 50 MG TAB PO PRN (20:32)
[2019-01-06] MEDS ORDERED: MELATONIN 3 MG TABLET PO SCH (21:00)
[2019-01-07] MEDS: traMADol 50 MG TAB PO PRN ×2 (03:16→07:52)
[2019-01-07 03:52] LABS: Cholesterol 168 mg/dL (<200); HDL Cholesterol 44 mg/dL (40-60); LDL Cholesterol,Calculated 105 mg/dL (0-99); Triglycerides 93 mg/dL (<150)
[2019-01-07] MEDS ORDERED: PANTOPRAZOLE 40 MG TABLET PO SCH (07:30)
[2019-01-07 07:48] VITALS: RESP 16
[2019-01-07] MEDS ORDERED: FOLIC ACID 1 MG TAB PO SCH (09:00)
[2019-01-07] MEDS ORDERED: POLYETHYLENE GLYCOL 3350 17 GM POWD.PACK PO SCH (09:00)
[2019-01-07] MEDS ORDERED: ASPIRIN 325 MG TAB PO SCH (09:00)
--- NOTE | 2019-01-07 09:08 | P.PN ---
Subjective Progress Note Date: 01/07/19 This is a 58-year-old female with history of thrombosis of the portacaval shunt. She is being followed by [facility] and has been in and out of the hospital. Admitted to the hospital with some depressive symptoms and some vague chest discomfort involving the whole upper body. So far cardiac enzymes are negative. EKGs are normal. When medically stable, patient will be discharged home and could have echocardiogram and stress test as an outpatient. If patient were to be clear, echocardiogram could be performed while in the hospital. Objective - Vital Signs Vital signs: Vital Signs Temp 98.1 F 01/07/19 07:47 Pulse 81 01/07/19 07:47 Resp 16 01/07/19 07:47 BP 119/73 01/07/19 07:47 Pulse Ox 97 01/07/19 07:47 Intake & Output 01/06/19 01/07/19 01/07/19 18:59 06:59 18:59 Intake Total 1076 Balance 1076 Intake: Oral 1076 Other: # Voids 1 1 # Bowel Movements 1 - Exam GENERAL EXAM: Patient is alert and oriented and doesn't appear to be in any acute distress HEENT: Normocephalic. Normal reaction of pupils, equal size, normal range of extraocular motion. No erythema or exudates in the throat. NECK: No masses, no nuchal rigidity. CHEST: No chest wall deformity. LUNGS: Equal air entry with no crackles or wheeze. HEART: S1 and S2 normal with no audible mumurs or gallops. Regular rhythm, femorals equal on both sides.. ABDOMEN: Distended. SKIN: No rashes CENTRAL NERVOUS SYSTEM: No focal deficits. EXTREMITIES: No cyanosis, clubbing or edema. - Labs CBC & Chem 7: 01/06/19 07:50 01/06/19 07:50 Labs: Abnormal Lab Results - Last 24 Hours (Table) 01/06/19 Range/Units 07:50 LDL Cholesterol, Calc 105 H (0-99) mg/dL Assessment and Plan (1) Chest pain Current Visit: Yes Status: Acute Code(s): R07.9 - CHEST PAIN, UNSPECIFIED SNOMED Code(s): 37754074 (2) Chronic abdominal pain Current Visit: Yes Status: Acute Code(s): R10.9 - UNSPECIFIED ABDOMINAL PAIN; G89.29 - OTHER CHRONIC PAIN SNOMED Code(s): 204122637 (3) Anemia associated with acute blood loss Current Visit: No Status: Acute Code(s): D62 - ACUTE POSTHEMORRHAGIC ANEMIA SNOMED Code(s): 081280301 (4) Cholelithiasis Current Visit: No Status: Acute Code(s): K80.20 - CALCULUS OF GALLBLADDER W/O CHOLECYSTITIS W/O OBSTRUCTION SNOMED Code(s): 778142942 Plan: Stable. Negative cardiac enzymes. No EKG changes. Patient could be considered for outpatient workup
[2019-01-07] MEDS ORDERED: CITALOPRAM HYDROBROMIDE 20 MG TAB PO SCH (11:30)
[2019-01-07 12:28] VITALS: BP 125/90; PULSE 93; TEMP 97.8
[2019-01-07] MEDS: DOCUSATE 100 MG CAP PO PRN (12:41)
[2019-01-07] MEDS: APIXABAN 5 MG TAB PO SCH (12:41)
[2019-01-07] MEDS ORDERED: LACTULOSE 20 GM/30 ML CUP PO ONE (13:15)
--- NOTE | 2019-01-07 14:26 | P.DS ---
Providers Date of admission: 01/06/19 10:00 Attending physician: Nathaly Gallagher Consults: 01/06/19 09:55 Consult Physician Urgent Consulting Provider: Moe Galeas Reason/Comments: chest pain Do you want consulting provider notified?: Yes Primary care physician: Estiven Sagastume Hospital Course: 58-year-old female with history of thrombosis of the portacaval shunt. She is being followed by [facility] and has been in and out of the hospital. Admitted to the hospital with some depressive symptoms and some vague chest discomfort involving the whole upper body. So far cardiac enzymes are negative. EKGs are normal. When medically stable, patient will be discharged home and could have echocardiogram and stress test as an outpatient. If patient were to be clear, echocardiogram could be performed while in the hospital. 01/07/2019 Patient was ruled out acute current syndromes, patient appears to be pain free objectively but she is still complaining of pain and not happy without known oh but patient is quite a bit constipated I counseled her again at the opiates are making her constipated patient did have a bowel movement with lactulose to her the dose of lactulose now and patient will be discharged on lactulose I highly recommended her to get off opiates but patient is not willing to do that at this time. Patient will be discharged today to follow with primary care physician as an outpatient.. Patient does have good bowel sounds. Patient was cleared by cardiology to be discharged. PHYSICAL EXAMINATION: GENERAL: The patient is alert and oriented x3, not in any acute distress. Well developed, well nourished. HEENT: Pupils are round and equally reacting to light. EOMI. No scleral icterus. No conjunctival pallor. Normocephalic, atraumatic. No pharyngeal erythema. No thyromegaly. CARDIOVASCULAR: S1 and S2 present. No murmurs, rubs, or gallops. PULMONARY: Chest is clear to auscultation, no wheezing or crackles. ABDOMEN: Soft, nontender, nondistended, normoactive bowel sounds. No palpable organomegaly. MUSCULOSKELETAL: No joint swelling or deformity. EXTREMITIES: No cyanosis, clubbing, or pedal edema. NEUROLOGICAL: Gross neurological examination did not reveal any focal deficits. SKIN: No rashes. His refer to my HPI from yesterday for further details of hospitalization course and other medical problems that were addressed here. Patient Condition at Discharge: Stable Plan - Discharge Summary Discharge Rx Participant: No New Discharge Prescriptions: New Lactulose [Cephulac] 20 gm PO TID PRN #300 ml PRN Reason: Constipation No Action HYDROcodone/APAP 7.5-325MG [[place] 7.5-325] 1 tab PO TID rOPINIRole HCL [Requip] 0.5 mg PO TID Pantoprazole [Protonix] 40 mg PO DAILY Disulfiram [Antabuse] 250 mg PO DAILY Ipratropium-Albuterol Nebulize [Duoneb 0.5 mg-3 mg/3 ml Soln] 3 ml INHALATION RT-QID PRN PRN Reason: Shortness Of Breath Folic Acid 1 mg PO DAILY Albuterol Inhaler [Ventolin Hfa Inhaler] 2 puff INHALATION RT-Q6H PRN PRN Reason: Shortness Of Breath Apixaban [Eliquis] 5 mg PO BID@1130,1600 Citalopram Hydrobromide [CeleXA] 20 mg PO DAILY@1130 Discharge Medication List HYDROcodone/APAP 7.5-325MG [[place] 7.5-325] 1 tab PO TID 05/02/16 [History] rOPINIRole HCL [Requip] 0.5 mg PO TID 10/29/16 [History] Disulfiram [Antabuse] 250 mg PO DAILY 12/15/18 [History] Ipratropium-Albuterol Nebulize [Duoneb 0.5 mg-3 mg/3 ml Soln] 3 ml INHALATION RT-QID PRN 12/15/18 [History] Pantoprazole [Protonix] 40 mg PO DAILY 12/15/18 [History] Albuterol Inhaler [Ventolin Hfa Inhaler] 2 puff INHALATION RT-Q6H PRN 12/30/18 [History] Apixaban [Eliquis] 5 mg PO BID@1130,1600 12/30/18 [History] Folic Acid 1 mg PO DAILY 12/30/18 [History] Citalopram Hydrobromide [CeleXA] 20 mg PO DAILY@1130 01/06/19 [History] Lactulose [Cephulac] 20 gm PO TID PRN #300 ml 01/07/19 [Rx] Follow up Appointment(s)/Referral(s): Estiven Sagastume MD [Primary Care Provider] - 3 Days Discharge Disposition: HOME SELF-CARE
== END 2019-01-07 14:43 | disposition home or self-care (01) ==
LOC: EC 06:53 → 1SOBS 10:00
PROVIDERS: ADMIT Internal Medicine; ATTEND Internal Medicine
DX: R07.89 Other chest pain (principal); D62 Acute posthemorrhagic anemia; K59.03 Drug induced constipation; T40.2X5A Adverse effect of other opioids, initial encounter; M19.90 Unspecified osteoarthritis, unspecified site; G25.81 Restless legs syndrome; I83.90 Asymptomatic varicose veins of unspecified lower extremity; D72.829 Elevated white blood cell count, unspecified; G89.29 Other chronic pain; R10.13 Epigastric pain; M54.9 Dorsalgia, unspecified; M70.71 Other bursitis of hip, right hip; M70.72 Other bursitis of hip, left hip; K80.20 Calculus of gallbladder without cholecystitis without obstruction; F17.210 Nicotine dependence, cigarettes, uncomplicated; R53.83 Other fatigue; R53.1 Weakness; F32.9 Major depressive disorder, single episode, unspecified; F41.1 Generalized anxiety disorder; Z79.891 Long term (current) use of opiate analgesic; Z79.01 Long term (current) use of anticoagulants; Z79.899 Other long term (current) drug therapy; Z88.6 Allergy status to analgesic agent; Z86.718 Personal history of other venous thrombosis and embolism; Z96.89 Presence of other specified functional implants; Z87.19 Personal history of other diseases of the digestive system; Z87.898 Personal history of other specified conditions; Z90.49 Acquired absence of other specified parts of digestive tract; Z90.81 Acquired absence of spleen; Z87.01 Personal history of pneumonia (recurrent); Z98.42 Cataract extraction status, left eye; Z98.41 Cataract extraction status, right eye; Z80.0 Family history of malignant neoplasm of digestive organs; Z82.5 Family history of asthma and other chronic lower respiratory diseases; Z82.49 Family history of ischemic heart disease and other diseases of the circulatory system
CPT/HCPCS: 96360; 96361; 99285; 36415; 94640; 93005; 83880; 80061; 80053; 84443; 82150; 83690; 83735; 84484; 85025; 85610; 85730; 82272; 71046; 74018; G0378 ×2

== ENCOUNTER → 2019-05-03 | Outpatient (CLI) | payer MEDICARE ==
--- NOTE | 2019-05-03 16:20 | BD ---
EXAMINATION TYPE: Axial Bone Density DATE OF EXAM: 05/03/2019 COMPARISON: NONE CLINICAL HISTORY: 59-year-old female postmenopausal screening without HRT Height: 61.5 Weight: 159.3 FRAX RISK QUESTIONS: Alcohol (3 or more units per day): no Family History (Parent hip fracture): no Glucocorticoids (More than 3mos): no (Ex: prednisone, prednisolone, methylprednisolone, dexamethasone, and hydrocortisone). History of Fracture in Adulthood: no Secondary Osteoporosis: 1. Type 1 Diabetes: no 2. Hyperthyroidism: no 3. Menopause before 45: no 4. Malnutrition: no 5. Chronic liver disease: no Rheumatoid Arthritis: no Current Tobacco Use: no/stopped smoking Apr 03, 2019 RISK FACTORS HISTORY OF: Family History of Osteoporosis: no Active: yes Diet low in dairy products/other sources of calcium: no Postmenopausal woman: age 53 Lost more than 2 inches in height since high school: no Frequent falls: yes MEDICATIONS: narco, omeprazole, elliquist, Requip, Cymbalta, sleep aid Additional History: EXAM MEASUREMENTS: Bone mineral densitometry was performed using the [email or web address] System. Bone mineral density as measured about the Lumbar spine is: ----- L1-L4(G/cm2): 1.024 T Score Values are as follows: ----- L2: -1.5 ----- L3: -0.8 ----- L4: -1.3 ----- L1-L4: -1.3 Bone mineral density : baseline Bone mineral density about the R hip (g/cm2): 0.867 Bone mineral density about the L hip (g/cm2): 0.891 T Score values are as follows: -----R Neck: -1.2 -----L Neck: -1.1 -----R Total: -0.3 -----L Total: -0.6 Bone mineral density : baseline IMPRESSION: Osteopenia (T Score between -2.5 and -1). There is slightly increased risk of fracture and the patient may be considered for treatment. Re-Screen 2-5 years. NOTE: T-SCORE=SD OF THE YOUNG ADULT MEAN.
== END | disposition home or self-care (01) ==
LOC: RADBDWWP 11:26
PROVIDERS: ATTEND Family Medicine
DX: M85.80 Other specified disorders of bone density and structure, unspecified site (principal); Z78.0 Asymptomatic menopausal state
CPT/HCPCS: 77080

== ENCOUNTER → 2019-05-08 | Outpatient (CLI) | payer MEDICARE ==
--- NOTE | 2019-05-08 16:47 | XR ---
EXAMINATION TYPE: XR wrist complete LT DATE OF EXAM: 05/08/2019 COMPARISON: NONE HISTORY: 59-year-old female M25.532, left wrist pain and swelling today. TECHNIQUE: 4 views FINDINGS: Cystic change within the ulnar proximal aspect of the lunate. Moderate to severe degenerati ve change first CMC joint with joint space loss and marginal spurring and subchondral sclerosis. Some nonspecific cystic change at the ulnar styloid process. No acute fracture, subluxation, dislocation. IMPRESSION: 1. Cystic change within the ulnar proximal lunate. Correlate for ulnar impaction syndrome which can l ead to TFCC injury. 2. Additional cystic change within the ulnar styloid process which could reflect ulnar styloid impact ion. 3. Moderate to severe OA at the base of the thumb.
== END | disposition home or self-care (01) ==
LOC: RAD 15:28
PROVIDERS: ATTEND Family Medicine
DX: M19.032 Primary osteoarthritis, left wrist (principal); M85.432 Solitary bone cyst, left ulna and radius

== ENCOUNTER → 2019-05-22 | Outpatient (CLI) | payer MEDICARE ==
--- NOTE | 2019-05-22 11:34 | US ---
EXAMINATION TYPE: US abdomen complete DATE OF EXAM: 05/22/2019 COMPARISON: CT abdomen and pelvis June 20, 2018 CLINICAL HISTORY: R74.8 Abnormal levels of other serum enzymes. h/o splenomegaly, cholecystectomy, sh unting within portal vein, no symptoms EXAM MEASUREMENTS: Liver Length: 13.6 cm Gallbladder Wall: Surgically absent CBD: 0.3 cm Spleen: Surgically absent Right Kidney: 9.3 x 4.2 x 4.4 cm Left Kidney: 9.3 x 4.1 x 4.9 cm Pancreas: not seen due to bowel gas Liver: mid portal vein flow seen, normal in size Gallbladder: Surgically absent Evidence for sonographic Stark's sign: no CBD: wnl Spleen: Surgically absent Right Kidney: wnl Left Kidney: wnl Upper IVC: wnl Abd Aorta: not seen due to bowel gas The visualized liver is heterogeneously hyperechoic in appearance without suspicious biliary dilatati on. Evaluation for focal masses suboptimal due to the heterogeneity. Mid portal vein shows monophasic hepatopedal flow. The intrahepatic portion of the IVC and proximal abdominal aorta are within normal limits. Gallbladder noted surgically absent with interval cholecystectomy. Visualized portion of [place] bile duct is unremarkable. The pancreas is suboptimally evaluated on the images state secondary to shadowing from overlying bowel gas per technologist. The spleen is surgically absent. Kidneys ar e symmetric and free of hydronephrosis. No renal lesions are seen. IMPRESSION: Interval cholecystectomy and splenectomy. Persistent heterogeneous hyperechoic appearance of liver felt to reflect diffuse fatty infiltration or underlying hepatocellular disease. No suspici ous biliary dilatation on current study. No new ascites.
== END | disposition home or self-care (01) ==
LOC: RADUSWWP 07:47
PROVIDERS: ATTEND Family Medicine
DX: R74.8 Abnormal levels of other serum enzymes (principal); Z90.49 Acquired absence of other specified parts of digestive tract; Z90.81 Acquired absence of spleen
CPT/HCPCS: 76700

== ENCOUNTER → 2019-05-25 | Outpatient (CLI) | payer MEDICARE ==
--- NOTE | 2019-05-28 09:53 | MM ---
Reason for exam: screening (asymptomatic). Last mammogram was performed 2 years and 4 months ago. History: Patient is postmenopausal. Physical Findings: A clinical breast exam by your physician is recommended on an annual basis and results should be correlated with mammographic findings. MG Screening Mammo w CAD Bilateral CC and MLO view(s) were taken. Prior study comparison: January 18, 2017, bilateral MG screening mammo w CAD. September 17, 2015, bilateral MG screening mammo w CAD. The breast tissue is heterogeneously dense. This may lower the sensitivity of mammography. No significant changes when compared with prior studies. ASSESSMENT: Benign, BI-RAD 2 RECOMMENDATION: Routine screening mammogram of both breasts in 1 year.
== END | disposition home or self-care (01) ==
LOC: RADMAMWWP 13:59
PROVIDERS: ATTEND Family Medicine
DX: Z12.39 Encounter for other screening for malignant neoplasm of breast (principal)
CPT/HCPCS: 77067

== ENCOUNTER 2020-10-07 14:41 | Emergency (ER) | payer MEDICARE ==
[2020-10-07 14:48] VITALS: TEMP 98
[2020-10-07 15:17] LABS: Basophils # (A) 0.1 k/uL (0-0.2); Basophils % (A) 0 %; Eosinophils # (A) 0.3 k/uL (0-0.7); Eosinophils % (A) 3 %; HCT 47.1 % (34.0-46.0); HGB 15.5 gm/dL (11.4-16.0); Lymphocytes # (A) 3.5 k/uL (1.0-4.8); Lymphocytes % (A) 32 %; MCHC 32.8 g/dL (31.0-37.0); MCV 97.5 fL (80.0-100.0); Mean Platelet Volume 8.7; Monocytes # (A) 0.6 k/uL (0-1.0); Monocytes % (A) 6 %; Neutrophils # (A) 6.1 k/uL (1.3-7.7); Neutrophils % (A) 57 %; Platelet Count 485 k/uL (150-450); RBC 4.83 m/uL (3.80-5.40); RDW 13.5 % (11.5-15.5); WBC 10.7 k/uL (3.8-10.6)
[2020-10-07] MEDS ORDERED: CLOPIDOGREL 75 MG TAB PO STA (15:18)
[2020-10-07] MEDS ORDERED: MORPHINE SULFATE 4 MG/ML SYRINGE IVP STA (15:23)
--- NOTE | 2020-10-07 15:26 | XR ---
EXAMINATION TYPE: XR chest 2V DATE OF EXAM: 10/07/2020 COMPARISON: 01/06/2019 HISTORY: Shortness of breath TECHNIQUE: Frontal and lateral views of the chest are obtained. FINDINGS: Scattered senescent parenchymal changes noted. Hyperinflation compatible with COPD. No evidence for infiltrate. No evidence for atelectasis. Heart size is stable. Mediastinal structures are stable and grossly unremarkable. No evidence for hilar prominence. Degenerative changes dorsal spine. IMPRESSION: 1. No evidence for acute pulmonary disease.
[2020-10-07 15:27] LABS: ALT 73 U/L (4-34); AST 64 U/L (14-36); African American GFR (CKD) >90 (>60 ml/min/1.73 sqM); Albumin 4.4 g/dL (3.5-5.0); Alkaline Phosphatase 233 U/L (38-126); Anion Gap 11 mmol/L; Blood Urea Nitrogen 18 mg/dL (7-17); Carbon Dioxide 20 mmol/L (22-30); Chloride 105 mmol/L (98-107); Glucose 103 mg/dL (74-99); Magnesium 2.1 mg/dL (1.6-2.3); Non-African American GFR(CKD) 84 (>60 ml/min/1.73 sqM); Potassium 5.4 mmol/L (3.5-5.1); Sodium 136 mmol/L (137-145); Total Bilirubin 0.4 mg/dL (0.2-1.3); Total Protein 7.7 g/dL (6.3-8.2)
--- NOTE | 2020-10-07 15:32 | ED ---
General Adult HPI - General Chief complaint: Chest Pain Stated complaint: Chest pain Time Seen by Provider: 10/07/20 14:55 Source: patient, RN notes reviewed, old records reviewed Mode of arrival: wheelchair Limitations: no limitations - History of Present Illness Initial comments: Patient is a 60-year-old female with past medical history remarkable for prior splenectomy, portal shunt and abdomen which 15, prior intra-abdominal clot, tobacco use, arthritis who presents emergency Department complaining of left- sided chest pain. She initially presented to her primary care office who sent her to the emergency department for cardiac workup and evaluation. Patient describes the pain as sharp in nature with some mild radiation towards her left shoulder. She denies any radiation of the back. She states that is located over the left chest. States it is somewhat worse with deep inspiration. She describes dyspnea secondary to the pain. She denies any abdominal complaints including nausea or vomiting. Denies abdominal pain. She denies any fatigue, weakness, generalized numbness. She denies any cardiac history previously. She denies any family medical history cardiac history. There is a history of DVTs and family members. Patient presents for evaluation of a concern for chest pain. She states it has been ongoing since Tuesday, and it is currently Tuesday. This is day 4. It has been more or less constant since tuesday with no known paliative or provacative factors. She denies any orthopnea, lower extremity edema, paroxysmal nocturnal dyspnea. - Related Data Home Medications Medication Instructions Recorded Confirmed HYDROcodone/APAP 7.5-325MG [[place] 1 tab PO Q8H 05/02/16 10/07/20 7.5-325] rOPINIRole HCL [Requip] 0.5 mg PO HS 10/29/16 10/07/20 Ipratropium-Albuterol Nebulize 3 ml INHALATION RT-BID PRN 12/15/18 10/07/20 [Duoneb 0.5 mg-3 mg/3 ml Soln] Albuterol Inhaler [Ventolin Hfa 1 puff INHALATION RT-Q6H PRN 10/07/20 10/07/20 Inhaler] Cholecalciferol [Vitamin D3 (25 25 mcg PO DAILY 10/07/20 10/07/20 Mcg = 1000 Iu)] DULoxetine HCL [Cymbalta] 60 mg PO DAILY 10/07/20 10/07/20 Fluticasone Nasal [place] [Flonase 1 spr EA NOSTRIL BID 10/07/20 10/07/20 Nasal [place]] Multivitamins, Thera [Multivitamin 1 tab PO DAILY 10/07/20 10/07/20 (formulary)] Vitamin A [Vitamin A (8,000 Units 2,400 mcg PO DAILY 10/07/20 10/07/20 = 2,400 MCG)] traZODone HCL 50 mg PO HS 10/07/20 10/07/20 Previous Rx's Medication Instructions Recorded Lidocaine 5% Patch [Lidoderm 5% 1 patch TOPICAL DAILY 7 Days #7 10/07/20 Patch] patch Allergies Allergy/AdvReac Type Severity Reaction Status Date / Time aspirin AdvReac Bleeding Verified 10/07/20 15:57 disorder as a child Review of Systems ROS Statement: Those systems with pertinent positive or pertinent negative responses have been documented in the HPI. Review of Systems: CONST: Denies fever EYES: Denies blurry vision ENT: Denies nasal congestion C/V: Endorses Chest pain RESP: Endorses shortness of breath GI: Denies abdominal pain : Denies dysuria SKIN: Denies rash. MSK: Denies joint pain. NEURO: Denies headache ROS Other: All systems not noted in ROS Statement are negative. 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/had fall from a slide, left knee goes out sometimes History of Any Multi-Drug Resistant Organisms: None Reported Past Surgical History: Cholecystectomy Additional Past Surgical History / Comment(s): splenectomy, portal shunt in abdomen age 16, sole cataracts Past Anesthesia/Blood Transfusion Reactions: Motion Sickness Additional Past Anesthesia/Blood Transfusion Reaction / Comment(s): motion sickness in elevator Past Psychological History: Anxiety Smoking Status: Current every day smoker Past Alcohol Use History: Occasional Past Drug Use History: None Reported - Past Family History Father Family Medical History: Cancer Additional Family Medical History / Comment(s): colon cancer Mother Family Medical History: Deep Vein Thrombosis (DVT) Additional Family Medical History / Comment(s): emphysema General Exam - General Exam Comments Initial Comments: General: Appears in no acute distress. HEAD: Normal with no signs of head trauma. EYES: PERRLA, EOMI, conjunctiva normal, no discharge. ENT: Hearing grossly intact, normal oropharynx. RESPIRATORY: Clear breath sounds bilaterally. No wheezes, rales, or rhonchi. No increased work of breathing. C/V: Mildly tachycardic with a regular rhythm. S1 and S2 auscultated. No peripheral edema. Peripheral pulses are 2+ and intact throughout. ABD: Abd is soft, nontender, nondistended EXT: Normal range of motion, no obvious deformity SKIN: No rashes or lesions observed on exposed skin. NEURO: Alert and oriented 4. Limitations: no limitations Course Vital Signs 10/07/20 10/07/20 10/07/20 14:44 15:45 16:36 Temperature 98.0 F Pulse Rate 101 H 90 84 Respiratory 20 16 16 Rate Blood Pressure 123/86 130/89 117/84 O2 Sat by Pulse 94 L 97 100 Oximetry Medical Decision Making - Medical Decision Making Based on the patient's presentation and physical exam, I'm concerned for po ssible cardiac cause for her current symptoms. I cannot rule out pulmonary cause either, we will obtain a chest x-ray for that. We will also obtain basic laboratory studies including troponin, EKG. D-dimer would be obtained as the patient does not PERC out and her well's score is low. This will rule out pulmonary embolism. The patient will be symptomatically treated with Plavix, as she is ALLERGIC to aspirin, as well as IV morphine. She will be connected to continuous cardiac monitoring here in the emergency department. She was in agreement this plan. I counseled the patient on smoking cessation. Patient's EKG shows no signs of acute ischemia. Chest x-ray shows no acute cardio pulmonary process. Laboratory studies are remarkable for negative troponin. Patient does have mild hyperkalemia of 5.4 without any acute EKG changes. She is mildly increased LFTs with an AST of 64, a LT is 73, and alk phos of 233 without any abdominal complaints at this time. Remainder of her labs are relatively unremarkable. D-dimer is negative. On reevaluation, patient's chest pain has resolved. Explained to her the results of her negative workup. As the patient is no longer having symptoms, I do believe it is safe to be discharged home as her heart score is low at 2 with chest pain since tuesday. She was in agreement with this plan. I will provide the patient with a prescription for lidocaine patch. I instructed the patient to follow up with their PCP in the next 3 days. . I explained that the patient should return to the emergency department if they experience any worsening symptoms. Strict return precautions were discussed with the patient. The patient expressed understanding of these instructions. I answered all questions that the patient had. The patient was discharged home in good condition with their prescriptions and follow up information. - Lab Data Result diagrams: 10/07/20 15:10 10/07/20 15:10 Lab Results 10/07/20 10/07/20 10/07/20 Range/Units 15:10 15:10 15:10 WBC 10.7 H (3.8-10.6) k/uL RBC 4.83 (3.80-5.40) m/uL Hgb 15.5 (11.4-16.0) gm/dL Hct 47.1 H (34.0-46.0) % MCV 97.5 (80.0-100.0) fL MCH 32.0 (25.0-35.0) pg MCHC 32.8 (31.0-37.0) g/dL RDW 13.5 (11.5-15.5) % Plt Count 485 H (150-450) k/uL MPV 8.7 Neutrophils % 57 % Lymphocytes % 32 % Monocytes % 6 % Eosinophils % 3 % Basophils % 0 % Neutrophils # 6.1 (1.3-7.7) k/uL Lymphocytes # 3.5 (1.0-4.8) k/uL Monocytes # 0.6 (0-1.0) k/uL Eosinophils # 0.3 (0-0.7) k/uL Basophils # 0.1 (0-0.2) k/uL PT 9.6 (9.0-12.0) sec INR 0.9 (<1.2) APTT 22.1 (22.0-30.0) sec D-Dimer 0.33 (<0.60) mg/L FEU Sodium 136 L (137-145) mmol/L Potassium 5.4 H (3.5-5.1) mmol/L Chloride 105 (98-107) mmol/L Carbon Dioxide 20 L (22-30) mmol/L Anion Gap 11 mmol/L BUN 18 H (7-17) mg/dL Creatinine 0.78 (0.52-1.04) mg/dL Est GFR (CKD-EPI)AfAm >90 (>60 ml/min/1.73 sqM) Est GFR (CKD-EPI)NonAf 84 (>60 ml/min/1.73 sqM) Glucose 103 H (74-99) mg/dL Calcium 10.0 (8.4-10.2) mg/dL Magnesium 2.1 (1.6-2.3) mg/dL Total Bilirubin 0.4 (0.2-1.3) mg/dL AST 64 H (14-36) U/L ALT 73 H (4-34) U/L Alkaline Phosphatase 233 H (38-126) U/L Troponin I (0.000-0.034) ng/mL Total Protein 7.7 (6.3-8.2) g/dL Albumin 4.4 (3.5-5.0) g/dL 10/07/20 Range/Units 15:10 WBC (3.8-10.6) k/uL RBC (3.80-5.40) m/uL Hgb (11.4-16.0) gm/dL Hct (34.0-46.0) % MCV (80.0-100.0) fL MCH (25.0-35.0) pg MCHC (31.0-37.0) g/dL RDW (11.5-15.5) % Plt Count (150-450) k/uL MPV Neutrophils % % Lymphocytes % % Monocytes % % Eosinophils % % Basophils % % Neutrophils # (1.3-7.7) k/uL Lymphocytes # (1.0-4.8) k/uL Monocytes # (0-1.0) k/uL Eosinophils # (0-0.7) k/uL Basophils # (0-0.2) k/uL PT (9.0-12.0) sec INR (<1.2) APTT (22.0-30.0) sec D-Dimer (<0.60) mg/L FEU Sodium (137-145) mmol/L Potassium (3.5-5.1) mmol/L Chloride (98-107) mmol/L Carbon Dioxide (22-30) mmol/L Anion Gap mmol/L BUN (7-17) mg/dL Creatinine (0.52-1.04) mg/dL Est GFR (CKD-EPI)AfAm (>60 ml/min/1.73 sqM) Est GFR (CKD-EPI)NonAf (>60 ml/min/1.73 sqM) Glucose (74-99) mg/dL Calcium (8.4-10.2) mg/dL Magnesium (1.6-2.3) mg/dL Total Bilirubin (0.2-1.3) mg/dL AST (14-36) U/L ALT (4-34) U/L Alkaline Phosphatase (38-126) U/L Troponin I <0.012 (0.000-0.034) ng/mL Total Protein (6.3-8.2) g/dL Albumin (3.5-5.0) g/dL - EKG Data -: EKG Interpreted by Me EKG Comments: 12-lead Electrocardiogram Interpretation Note EKG was reviewed and interpreted by myself. 12-lead ECG performed at 1452 is interpreted by me as revealing normal sinus rhythm at a rate of 98 beats per minute. [place] is normal. SD interval is 160 ms, QRS duration 72 ms, QTc is 426 seconds.. There were no ST or T wave abnormalities to suggest myocardial ischemia or injury. R wave progression across the precordium was satisfactory. By my interpretation this EKG is non-diagnostic for acute ischemia. Disposition Clinical Impression: Chest pain of unknown etiology, Tobacco abuse Disposition: HOME SELF-CARE Condition: Good Instructions (If sedation given, give patient instructions): Chest Pain (ED) Prescriptions: Lidocaine 5% Patch [Lidoderm 5% Patch] 1 patch TOPICAL DAILY 7 Days #7 patch Is patient prescribed a controlled substance at d/c from ED?: No Referrals: Estiven Sagastume MD [Primary Care Provider] - 1-2 days
[2020-10-07 15:35] LABS: INR 0.9 (<1.2); Prothrombin Time 9.6 sec (9.0-12.0)
[2020-10-07 15:42] LABS: Partial Thromboplastin Time 22.1 sec (22.0-30.0)
[2020-10-07 15:45] VITALS: RESP 16
[2020-10-07 16:40] VITALS: BP 117/84; PULSE 84
== END 2020-10-07 16:40 | disposition home or self-care (01) ==
LOC: EC 14:41
DX: R07.89 Other chest pain (principal); F41.9 Anxiety disorder, unspecified; F17.200 Nicotine dependence, unspecified, uncomplicated; M19.90 Unspecified osteoarthritis, unspecified site; Z86.718 Personal history of other venous thrombosis and embolism; Z90.81 Acquired absence of spleen; Z90.49 Acquired absence of other specified parts of digestive tract
CPT/HCPCS: 99285; 96374; 36415; 93005; 85379; 80053; 83735; 84484; 85025; 85610; 85730; 71046; J2270

== ENCOUNTER → 2020-10-07 | Outpatient (CLI) | payer MEDICARE | END | disposition home or self-care (01) | LOC: LABWHC1 14:31 | PROVIDERS: ATTEND Nurse Practitioner | DX: Z53.9 Procedure and treatment not carried out, unspecified reason (principal) ==

== ENCOUNTER → 2021-06-09 | Outpatient (CLI) | payer MEDICARE ==
--- NOTE | 2021-06-09 16:26 | MR ---
EXAMINATION TYPE: MR knee LT wo con DATE OF EXAM: 06/09/2021 COMPARISON: No plain film submitted for comparison HISTORY: Chronic left knee pain and swelling for years. TECHNIQUE: Multiplanar, multisequence imaging of the left knee is performed without IV contrast. FINDINGS: MEDIAL MENISCUS: Anterior and posterior horns are intact without tear. LATERAL MENISCUS: Anterior and posterior horns are intact without tear. CRUCIATE LIGAMENTS: The anterior and posterior cruciate ligaments are intact and unremarkable. COLLATERAL LIGAMENTS: The medial collateral ligament and lateral collateral ligament complex are inta ct and unremarkable. EXTENSOR MECHANISM: Visualized quadriceps and patellar tendons are intact. EFFUSION: Minimal joint fluid present POPLITEAL CYST: Semimembranosus gastrocnemius cyst is suspected and is small measuring 3 cm x 8 mm x 7 mm extending posterior to the proximal tibia from the joint space level, somewhat multilocular staci earance TRICOMPARTMENT SPACES: Maintained CARTILAGE: Ray 2 to grade III chondromalacia suspected in the medial compartment BONE MARROW SIGNAL: Some mild T1 low intense, T2 hyperintense signal seen within the metaphysis of th e left femur distally and proximal tibia is indeterminate, questionable clinical significance OTHER: No additional significant abnormality is appreciated. IMPRESSION: Suspect mild osteoarthritic change and Palma's cyst. Mild marrow heterogeneity of questionable clinic al significance, consider follow-up, bone scan may be of benefit
--- NOTE | 2021-06-09 16:30 | MR ---
EXAMINATION TYPE: MR knee RT wo con DATE OF EXAM: 06/09/2021 COMPARISON: No plain film supplied for correlation number correlation to prior MRI same date left johnny corona HISTORY: Chronic right knee pain and swelling for years. TECHNIQUE: Multiplanar, multisequence imaging of the left knee is performed without IV contrast. FINDINGS: MEDIAL MENISCUS: Anterior and posterior horns are intact without tear. LATERAL MENISCUS: Anterior and posterior horns are intact without tear. CRUCIATE LIGAMENTS: The anterior and posterior cruciate ligaments are intact and unremarkable. COLLATERAL LIGAMENTS: The medial collateral ligament and lateral collateral ligament complex are inta ct and unremarkable. EXTENSOR MECHANISM: Visualized quadriceps and patellar tendons are intact. EFFUSION: Minimal joint effusion POPLITEAL CYST: Small semimembranosus gastrocnemius cyst is present approximately 3 cm x 11 mm x 10 mm TRICOMPARTMENT SPACES: Joint space loss present in the medial compartment and patellofemoral joint CARTILAGE: Grade III chondromalacia present at the posterior patella, medial compartment shows grade 3 to grade IV chondromalacia BONE MARROW SIGNAL: Reactive subchondral marrow edema present in the medial femoral condyle at the [place] of the spurring, some minimal patchy increased signal in T2-weighted sequences noted similar to c ontralateral side in the distal femur and proximal tibia OTHER: There is subcutaneous edema. IMPRESSION: Osteoarthritis and additional findings above. Small Palma's cyst.
== END | disposition home or self-care (01) ==
LOC: RADMRIMAIN 15:15
PROVIDERS: ATTEND Nurse Practitioner Acute Care
DX: M17.11 Unilateral primary osteoarthritis, right knee (principal); M71.21 Synovial cyst of popliteal space [Baker], right knee; M25.562 Pain in left knee

== ENCOUNTER → 2021-07-15 | Outpatient (CLI) | payer MEDICARE ==
--- NOTE | 2021-07-15 22:42 | BD ---
EXAMINATION TYPE: Axial Bone Density DATE OF EXAM: 07/15/2021 COMPARISON: 2019 CLINICAL HISTORY: 61 years year old Female. ICD-10 CODE: Z78.0 SSYMPTOMATIC MENOPAUSAL Height: 5' Weight: 168 FRAX RISK QUESTIONS: Secondary Osteoporosis: Current Tobacco Use: Y RISK FACTORS HISTORY OF: Postmenopausal woman: y Frequent falls: y MEDICATIONS: Additional Medications: narco pain, restless legs, Additional History: EXAM MEASUREMENTS: Bone mineral densitometry was performed using the [employer] System. Bone mineral density as measured about the Lumbar spine is: ----- L1-L4(G/cm2): 1.043 T Score Values are as follows: ----- L1: -2.1 ----- L2: -1.7 ----- L3: -0.3 ----- L4: -0.8 ----- L1-L4:-1.1 Bone mineral density has: Increased 3.1%since study of: 05/03/2019 Bone mineral density about the R hip (g/cm2): 0.858 Bone mineral density about the L hip (g/cm2): 0.887 T Score values are as follows: -----R Neck: -1.3 -----L Neck: -1.1 -----R Total: -0.6 -----L Total: -0.8 Bone mineral density has: Decrease-2.6%since study05/03/2019 FRAX: The graph provided illustrates a 7.9%chance a major osteoporotic fx and a0.9%chancefor hip fx IMPRESSION: Osteopenia (T Score between -2.5 and -1). There is slightly increased risk of fracture and the patient may be considered for treatment. Re-Screen 2-5 years. NOTE: T-SCORE=SD OF THE YOUNG ADULT MEAN.
--- NOTE | 2021-07-16 12:24 | MM ---
Reason for exam: screening (asymptomatic). Last mammogram was performed 2 years and 2 months ago. History: Patient is postmenopausal. Physical Findings: A clinical breast exam by your physician is recommended on an annual basis and results should be correlated with mammographic findings. MG Screening Mammo w CAD Bilateral CC and MLO view(s) were taken. Prior study comparison: May 25, 2019, bilateral MG screening mammo w CAD. January 18, 2017, bilateral MG screening mammo w CAD. The breast tissue is heterogeneously dense. This may lower the sensitivity of mammography. Finding: There is a 5 mm obscured round mass in the middle, posterior, central position of the right breast. New finding since May 25, 2019. ASSESSMENT: Incomplete: need additional imaging evaluation, BI-RAD 0 RECOMMENDATION: Special view mammogram and ultrasound of the right breast. [facility] will attempt to contact patient to return for supplemental views and ultrasound.
== END | disposition home or self-care (01) ==
LOC: RADMAMWWP 14:14
PROVIDERS: ATTEND Family Medicine
DX: Z12.31 Encounter for screening mammogram for malignant neoplasm of breast (principal); M85.89 Other specified disorders of bone density and structure, multiple sites; Z78.0 Asymptomatic menopausal state
CPT/HCPCS: 77067; 77080

== ENCOUNTER → 2021-07-22 | Outpatient (CLI) | payer MEDICARE ==
--- NOTE | 2021-07-22 11:59 | MM ---
Reason for exam: additional evaluation requested from abnormal screening. Last mammogram was performed less than 1 month ago. History: Patient is postmenopausal. Physical Findings: A clinical breast exam by your physician is recommended on an annual basis and results should be correlated with mammographic findings. MG Work Up Mamm w CAD RT Spot compression CC and spot compression MLO view(s) were taken of the right breast. Prior study comparison: July 15, 2021, bilateral MG screening mammo w CAD. May 25, 2019, bilateral MG screening mammo w CAD. Partially obscured nodule upper outer right breast 5.1cm from nipple. Results were given to the patient verbally at the time of the exam. ASSESSMENT: Incomplete: need additional imaging evaluation, BI-RAD 0 RECOMMENDATION: Ultrasound of the right breast.
--- NOTE | 2021-07-22 12:01 | USB ---
Reason for exam: additional evaluation requested from abnormal screening. History: Patient is postmenopausal. Physical Findings: A clinical breast exam by your physician is recommended on an annual basis and results should be correlated with mammographic findings. US Breast Workup Limited RT Right complete breast ultrasound includes all four quadrants, the retroareolar region and axilla. Finding demonstrates a 4 x 3 x 5mm oval, cystic lesion at 8 o'clock and duct ectasia at the posterior nipple. Results were given to the patient verbally at the time of the exam. ASSESSMENT: Benign, BI-RAD 2 RECOMMENDATION: Return to routine screening mammogram schedule for both breasts.
== END | disposition home or self-care (01) ==
LOC: RADMAMWWP 10:09
PROVIDERS: ATTEND Family Medicine
DX: R92.8 Other abnormal and inconclusive findings on diagnostic imaging of breast (principal); N60.41 Mammary duct ectasia of right breast; N60.01 Solitary cyst of right breast; Z78.0 Asymptomatic menopausal state
CPT/HCPCS: 77065

== ENCOUNTER → 2021-10-03 | Outpatient (CLI) | payer MEDICARE ==
--- NOTE | 2021-10-03 17:58 | MR ---
EXAMINATION TYPE: MR lumbar spine wo con DATE OF EXAM: 10/03/2021 COMPARISON: MR lumbar spine 06/24/2015. HISTORY: Lower back pain x10 years TECHNIQUE: Multiplanar, multisequence images of the lumbar spine were acquired without IV contrast. Lumbar segments are intact. No paraspinal masses are identified. Conus medullaris has a normal appe arance. Multilevel disc desiccation is present. Minimal multilevel anterior spurring noted. T12-L1: No herniation, protrusion or disc bulging. No canal stenosis is present. Foramina are paten t bilaterally. L1-L2: No herniation, protrusion or disc bulging. No canal stenosis is present. Foramina are patent bilaterally. L2-L3: Broad-based disc bulge without significant spinal canal stenosis. Foramina are patent bilater ally. Mild facet arthropathy bilaterally. L3-L4: Broad-based disc bulge without significant spinal canal stenosis. Minimal bilateral foraminal narrowing. Mild facet arthropathy bilaterally. L4-L5: Broad-based disc bulge without significant spinal canal stenosis. Foramina are patent bilater ally. Mild facet arthropathy bilaterally. L5-S1: Along its posterior with no evidence of herniation, protrusion or disc bulging. No canal steno sis is present. Foramina are patent bilaterally. Mild facet arthropathy bilaterally. IMPRESSION: * No evidence of disc herniation or significant spinal canal stenosis. * Multilevel degenerative changes of the lower spine as detailed above.
== END | disposition home or self-care (01) ==
LOC: RADMRIMAIN 10:25
PROVIDERS: ATTEND Nurse Practitioner Acute Care
DX: M47.816 Spondylosis without myelopathy or radiculopathy, lumbar region (principal)
CPT/HCPCS: 72148

== ENCOUNTER → 2022-12-15 | Outpatient (CLI) | payer MEDICARE ==
--- NOTE | 2022-12-16 20:49 | MM ---
Reason for Exam: Screening (asymptomatic). Last mammogram was performed 1 year(s) and 5 month(s) ago. Patient History: Menarche at age 16. First Full-Term at age 26. Postmenopausal. Risk Values: Sherron 5 year model risk: 1.5%. NCI Lifetime model risk: 7.2%. Prior Study Comparison: 05/25/2019 Bilateral Screening Mammogram, [facility]. 07/15/2021 Bilateral Screening Mammogram, [facility]. 07/22/2021 Right Diagnostic Mammogram, [facility]. Tissue Density: The breast tissue is heterogeneously dense. This may lower the sensitivity of mammography. Findings: Analyzed By CAD. There is no suspicious group of microcalcifications or new suspicious mass in either breast. Overall Assessment: Negative, BI-RAD 1 Management: Screening Mammogram of both breasts in 1 year. . Patient should continue monthly self-breast exams. A clinical breast exam by your physician is recommended on an annual basis. This exam should not preclude additional follow-up of suspicious palpable abnormalities. Note on Sherron scores and lifetime risk: 1. A Sherron score greater than 3% is considered moderate risk. If this is the case, consider specialist referral to assess eligibility for a risk reducing agent. 2. If overall lifetime risk for the development of breast cancer is 20% or higher, the patient may qualify for future screening with alternating mammogram and breast MRI. Electronically signed and approved by: Jenn Jaquez M.D. Radiologist
== END | disposition home or self-care (01) ==
LOC: RADBDWWP 15:07
PROVIDERS: ATTEND Family Medicine
DX: Z12.31 Encounter for screening mammogram for malignant neoplasm of breast (principal); Z78.0 Asymptomatic menopausal state; Z87.891 Personal history of nicotine dependence
CPT/HCPCS: 77067

== ENCOUNTER → 2022-12-16 | Outpatient (CLI) | payer MEDICARE ==
--- NOTE | 2022-12-16 16:08 | CTL ---
EXAMINATION TYPE: CT Low Dose Lung DATE OF EXAM ORDERED: 12/16/2022 HISTORY: Z87.891 PERSONAL HISTORY OF NICOTINE DEPENDENCE. Lung cancer screening. Current smoker, 70.[address] DLP: 79.[address] CTDI: 2.4 mGy Automated exposure control for dose reduction was used. SCREENING VISIT: First screening visit COMPARISON: Chest radiograph 10/07/2020, CT chest 10/19/2018 TECHNIQUE: Low dose computed tomography scan was performed through the chest at 1 mm thick sections a nd reconstructed images in multiple planes at 1 mm and [address] DIAGNOSTIC QUALITY: Satisfactory FINDINGS: LUNG NODULES: No clinically significant pulmonary nodule. LUNGS: COPD: Severity: Mild paraseptal and centrilobular emphysematous changes. Fibrosis: Severity: None Lymph nodes: None Other findings: None RIGHT PLEURAL SPACE: Effusion: None Calcification: None Thickening: None Pneumothorax: None LEFT PLEURAL SPACE: Effusion: None Calcification: None Thickening: None Pneumothorax: None HEART: Heart Size: Normal Coronary Calcification: Small Pericardial Effusion: None OTHER FINDINGS: Upper abdomen: Pneumobilia likely related to prior sphincterotomy. Few calcifications redemonstrated within the region of the common bile duct. Postsurgical changes from splenectomy. Bony thorax: None Supraclavicular region: None Other: Macrocalcification within the right thyroid lobe. IMPRESSION: No clinically significant pulmonary nodule. CT LUNG RAD AND CT CHEST RECOMMENDATION: Lung-Rad 1 Negative: Continue annual screening with LDCT in 12 months. S Modifier (other clinically significant findings): None
== END | disposition home or self-care (01) ==
LOC: RADCTMAIN 12-15 14:48
PROVIDERS: ATTEND Family Medicine
DX: Z12.2 Encounter for screening for malignant neoplasm of respiratory organs (principal); Z87.891 Personal history of nicotine dependence
CPT/HCPCS: 71271

== ENCOUNTER → 2023-06-01 | Outpatient (CLI) | payer MEDICARE ==
--- NOTE | 2023-06-01 15:49 | XR ---
EXAMINATION TYPE: XR chest 1V DATE OF EXAM: 06/01/2023 3:40 PM CLINICAL INDICATION:Female, 63 years old with history of K57.92 DIVERTICULITIS; [facility] COMPARISON: Chest radiographs from 10/07/2020. TECHNIQUE: XR chest 1V Frontal view of the chest. FINDINGS: Lungs/Pleura: There is no evidence of pleural effusion, focal consolidation, or pneumothorax. Pulmonary vascularity: Unremarkable. Heart/mediastinum: Cardiomediastinal silhouette is unremarkable. Musculoskeletal: No acute osseous pathology. IMPRESSION: No acute cardiopulmonary disease/process.
--- NOTE | 2023-06-01 15:50 | XR ---
EXAMINATION TYPE: XR abdomen 2V DATE OF EXAM: 06/01/2023 3:40 PM CLINICAL INDICATION:Female, 63 years old with history of K87.59 DIVERTCULITIS; [facility] COMPARISON: None. TECHNIQUE: Two views of the abdomen were obtained. FINDINGS: The bowel gas pattern is nonspecific without dilated loops of small or large bowel. There i s no evidence for organomegaly or pneumoperitoneum. The osseous structures are intact. Postsurgical clips are present in the left upper quadrant. Fecal material and gas are demonstrated throughout the colon and rectum. IMPRESSION: Nonspecific bowel gas pattern without radiographic evidence for acute process.
[2023-06-01 19:44] LABS: Basophils # (A) 0.05 X 10*3/uL (0.00-0.10); Basophils % (A) 0.5 %; Eosinophils # (A) 0.15 X 10*3/uL (0.04-0.35); Eosinophils % (A) 1.4 %; HCT 45.9 % (37.2-46.3); HGB 14.5 g/dL (12.0-15.0); Lymphocytes % (A) 37.2 %; MCH 30.7 pg (27.0-32.0); MCHC 31.6 g/dL (32.0-37.0); MCV 97.2 FL (80.0-97.0); Monocytes # (A) 0.73 X 10*3/uL (0.20-1.00); NRBC Per 100 WBC 0 X 10*3/uL (0.00-0.01); Neutrophils # (A) 5.61 X 10*3/uL (1.80-7.70); Neutrophils % (A) 53.5 %; Platelet Count 464 X 10*3/uL (140-440); RBC 4.72 X 10*6/uL (4.10-5.20); RDW 14.6 % (11.5-14.5); WBC 10.48 X 10*3/uL (4.50-10.00)
[2023-06-01 20:44] LABS: Erythrocyte Sedimentation Rate 18 mm/Hr (0-30)
[2023-06-01 22:25] LABS: ALT 30 U/L (8-44); AST 40 U/L (13-35); Albumin 4.2 g/dL (3.8-4.9); Albumin/Globulin Ratio 1.45 Ratio (1.60-3.17); Alkaline Phosphatase 146 U/L (41-126); Amylase 48 U/L (23-121); BUN/Creat Ratio 14.11 Ratio (12.00-20.00); Blood Urea Nitrogen 12.7 mg/dL (9.0-27.0); Calcium 9.5 mg/dL (8.7-10.3); Carbon Dioxide 26.3 mmol/L (21.6-31.8); Chloride 103 mmol/L (96-109); Chol/HDL Ratio 4.92 Ratio; Globulin 2.9 g/dL (1.6-3.3); Glucose 86 mg/dL (70-110); LDL Cholesterol,Calculated 78.1 mg/dL (0.0-131.0); Lipase 49 U/L (14-63); Potassium 4.7 mmol/L (3.5-5.5); Sodium 140 mmol/L (135-145); Total Bilirubin 0.3 mg/dL (0.3-1.2); Total Protein 7.1 g/dL (6.2-8.2)
[2023-06-02 01:02] LABS: HIV 2 AB Non-Reactive (Non-Reactive); HIV AB P24 Non-Reactive (Non-Reactive); HIV P24 AG Non-Reactive (Non-Reactive)
== END | disposition home or self-care (01) ==
LOC: RADXRMAIN 15:06
PROVIDERS: ATTEND Family Medicine
DX: Z11.4 Encounter for screening for human immunodeficiency virus [HIV] (principal); K57.92 Diverticulitis of intestine, part unspecified, without perforation or abscess without bleeding; E78.5 Hyperlipidemia, unspecified; K31.89 Other diseases of stomach and duodenum
CPT/HCPCS: 71045; 74019; 80053; 80061; 82150; 83690; 84443; 85025; 85652; 87390

== ENCOUNTER → 2023-07-08 | Outpatient (CLI) | payer MEDICARE ==
--- NOTE | 2023-07-11 15:02 | XR ---
EXAMINATION TYPE: XR ribs LT w pa chest xray DATE OF EXAM: 07/08/2023 3:40 PM CLINICAL INDICATION:Female, 63 years old with history of R07.81 PLEURODYNIA; PH[facility] COMPARISON: 06/01/2023 TECHNIQUE: XR ribs LT w pa chest xray; Frontal and oblique views of the ribs with frontal chest radio graph. FINDINGS: The ribs have a normal appearance. No evidence of fracture. Overall, the lungs are clear. The cardiac silhouette is normal in size. The remaining osseous structures are intact. IMPRESSION: No displaced rib fractures definitively visualized.
== END | disposition home or self-care (01) ==
LOC: RADXRMAIN 15:17
PROVIDERS: ATTEND Family Medicine
DX: R07.81 Pleurodynia (principal)

== ENCOUNTER → 2023-11-29 | Outpatient (CLI) | payer MEDICARE ==
--- NOTE | 2023-11-29 21:07 | US ---
EXAMINATION TYPE: US groin LT DATE OF EXAM: 11/29/2023 COMPARISON: NONE CLINICAL INDICATION: Female, 63 years old with history of R10.32 LEFT LOWER QUADRANT PAIN; LLQ pain u nder panis, no injury, no palpable, no skin color changes. TECHNIQUE: Soft tissue LLQ scan FINDINGS: Normal appearing soft tissue with no obvious sign of herniation, masses or fluid collectio ns. Pain of unknown etiology. IMPRESSION: 1. No suspicious left lower quadrant abnormality on ultrasound. Clinical management of patient's left lower quadrant pain recommended [facility], , 11/29/2023 9:05 PM
== END | disposition home or self-care (01) ==
LOC: RADUSWWP 09:34
PROVIDERS: ATTEND Family Medicine
DX: R10.32 Left lower quadrant pain (principal)

== ENCOUNTER → 2023-12-19 | Outpatient (CLI) | payer MEDICARE ==
--- NOTE | 2023-12-21 18:21 | MM ---
Reason for Exam: Screening (asymptomatic). Last screening mammogram was performed 12 month(s) ago. Patient History: Menarche at age 16. First Full-Term at age 26. Postmenopausal. Risk Values: Sherron 5 year model risk: 1.5%. NCI Lifetime model risk: 7.0%. Prior Study Comparison: 07/15/2021 Bilateral Screening Mammogram, [facility]. 07/22/2021 Right Diagnostic Mammogram, [facility]. 12/15/2022 Bilateral MG screening mammo w CAD, [facility]. Tissue Density: The breasts are heterogeneously dense, which may obscure small masses. Findings: Analyzed By CAD. Chronic low density nodularity central right breast. There is no suspicious group of microcalcifications or new suspicious mass in either breast. Overall Assessment: Benign, BI-RAD 2 Management: Screening Mammogram of both breasts in 1 year. Further clinical management of patient's lateral left breast and axillary pain. Patient should continue monthly self-breast exams. A clinical breast exam by your physician is recommended on an annual basis. This exam should not preclude additional follow-up of suspicious palpable abnormalities. Note on Sherron scores and lifetime risk: 1. A Sherron score greater than 3% is considered moderate risk. If this is the case, consider specialist referral to assess eligibility for a risk reducing agent. 2. If overall lifetime risk for the development of breast cancer is 20% or higher, the patient may qualify for future screening with alternating mammogram and breast MRI. [facility], , 12/21/2023 6:18 PM. Electronically signed and approved by: Jenn Jaquez M.D. Radiologist
== END | disposition home or self-care (01) ==
LOC: RADMAMWWP 14:06
PROVIDERS: ATTEND Family Medicine
DX: Z12.31 Encounter for screening mammogram for malignant neoplasm of breast
CPT/HCPCS: 77067

== ENCOUNTER 2024-01-11 15:46 | Observation (INO) | payer MEDICARE ==
--- NOTE | 2024-01-11 16:25 | ED ---
Chest Pain HPI - General Source: patient, RN notes reviewed Mode of arrival: wheelchair Limitations: no limitations <Adriana Sampson - Last Filed: 01/11/24 16:24> - General Source: patient, RN notes reviewed Mode of arrival: wheelchair Limitations: no limitations - History of Present Illness MD Complaint: chest pain -: hour(s) Pain Location: left chest Pain Radiation: LUE Severity: moderate Severity scale (1-10): 5 Quality: tightness, heaviness Consistency: constant Improves With: nothing Worsens With: nothing Anginal Symptoms: sense of impending doom Other Symptoms: palpitations Treatments Prior to Arrival: none <Shankar Fletcher - Last Filed: 01/13/24 17:32> - General Chief Complaint: Chest Pain Stated Complaint: chest pain, SOB Time Seen by Provider: 01/11/24 15:59 - History of Present Illness Initial Comments: Quick [id number] female with a smoking history presents to the emergency department with a chief complaint of stabbing constant chest pain that started this morning and is exacerbated on inspiration. Endorses shortness of breath as well. Denies history of HI. No blood thinner use. Denies history of COPD or asthma. (Adriana Sampson) This is a 63-year-old female to ER for chest pain left-sided chest pain was suffering from COPD and smoking, patient does do breathing treatments at home with no help no prior history of HI or CAD, patient does have high blood pressure and family history of heart disease (Shankar Fletcher) - Related Data Home Medications Medication Instructions Recorded Confirmed HYDROcodone/APAP 7.5-325MG [[place] 7.5 mg PO TID PRN 05/02/16 01/13/24 7.5-325] rOPINIRole HCL [Requip] 0.5 mg PO HS 10/29/16 01/13/24 Albuterol Inhaler [Ventolin Hfa 2 puff INHALATION RT-QID PRN 10/07/20 01/13/24 Inhaler] Multivitamins, Thera [Multivitamin 1 tab PO DAILY 10/07/20 01/13/24 (formulary)] Pregabalin 50 mg PO TID 02/23/23 01/13/24 Omeprazole [PriLOSEC] 20 mg PO DAILY 01/11/24 01/13/24 Allergies Allergy/AdvReac Type Severity Reaction Status Date / Time aspirin AdvReac Bleeding Verified 01/13/24 14:29 disorder as a child Review of Systems ROS Other: All systems not noted in ROS Statement are negative. <Adriana Sampson - Last Filed: 01/11/24 16:24> ROS Other: All systems not noted in ROS Statement are negative. <Shankar Fletcher - Last Filed: 01/13/24 17:32> ROS Statement: Those systems with pertinent positive or pertinent negative responses have been documented in the HPI. 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 age 16, sole cataracts,colonoscopy Past Anesthesia/Blood Transfusion Reactions: Motion Sickness Additional Past Anesthesia/Blood Transfusion Reaction / Comment(s): motion sickness in elevator Past Psychological History: Anxiety Smoking Status: Current every day smoker Past Alcohol Use History: Occasional Past Drug Use History: None Reported - Past Family History Father Family Medical History: Cancer Additional Family Medical History / Comment(s): colon cancer Mother Family Medical History: Deep Vein Thrombosis (DVT) Additional Family Medical History / Comment(s): emphysema <Adriana Sampson - Last Filed: 01/11/24 16:24> General Exam Limitations: no limitations <Adriana Sampson - Last Filed: 01/11/24 16:24> General appearance: alert, in no apparent distress Head exam: Present: atraumatic, normocephalic, normal inspection Eye exam: Present: normal appearance, PERRL, EOMI. Absent: scleral icterus, conjunctival injection, periorbital swelling ENT exam: Present: normal exam, mucous membranes moist Neck exam: Present: normal inspection. Absent: tenderness, meningismus, lymphadenopathy Respiratory exam: Present: normal lung sounds bilaterally. Absent: respiratory distress, wheezes, rales, rhonchi, stridor Cardiovascular Exam: Present: regular rate, normal rhythm, normal heart sounds. Absent: systolic murmur, diastolic murmur, rubs, gallop, clicks GI/Abdominal exam: Present: soft, normal bowel sounds. Absent: distended, tenderness, guarding, rebound, rigid Extremities exam: Present: normal inspection, full ROM, normal capillary refill. Absent: tenderness, pedal edema, joint swelling, calf tenderness Back exam: Present: normal inspection Neurological exam: Present: alert, oriented X3, CN II-XII intact Psychiatric exam: Present: normal affect, normal mood Skin exam: Present: warm, dry, intact, normal color. Absent: rash <Shankar Fletcehr Filed: 01/13/24 17:32> - General Exam Comments Initial Comments: Visual Physical Exam Vital signs reviewed General: Well-appearing, nontoxic, no acute distress. Head: Normocephalic, atraumatic Eyes: PERRLA, EOMI ENT: Airway patent Chest: Nonlabored breathing Skin: No visual rash, normal skin tone Neuro: Alert and oriented 3 Musculoskeletal: No gross abnormalities (Stieler,Adriana) Course <Shankar Fletcher Filed: 01/13/24 17:32> Vital Signs 01/11/24 01/11/24 01/11/24 16:01 18:38 21:43 Temperature 98.1 F Pulse Rate 99 78 86 Pulse Rate [ Pulse Oximetery ] Respiratory 20 20 20 Rate Blood Pressure 147/85 145/77 161/82 Blood Pressure [Left Arm] O2 Sat by Pulse 98 97 95 Oximetry 01/11/24 01/11/24 22:35 23:05 Temperature 98.4 F 97.7 F Pulse Rate 89 Pulse Rate [ 85 Pulse Oximetery ] Respiratory 18 18 Rate Blood Pressure 137/72 Blood Pressure 148/81 [Left Arm] O2 Sat by Pulse 93 L 97 Oximetry - Reevaluation(s) Reevaluation #1: 01/11/24 18:08 Medical records reviewed (Shankar Fletcher) Reevaluation #2: 01/11/24 18:08 Patient symptoms unchanged (Shankar Fletcher) Reevaluation #3: 01/11/24 18:08 Patient informed of results and questions answered (Shankar Fletcher) Reevaluation #4: Was pt. sent in by a medical professional or institution ([facility], BELT WORKER, urgent care, hospital, or senior care...) When possible be specific @ -no Did you speak to anyone other than the patient for history (EMS, parent, family, police, friend...)? What history was obtained from this source @ -no Did you review nursing and triage notes (agree or disagree)? Why? @ -agree Are old charts reviewed (outside hosp., previous admission, EMS record, old EKG, old radiological studies, urgent care reports/EKG's, senior care records)? Report findings @ -yes Differential Diagnosis (chest pain, altered mental status, abdominal pain women, abdominal pain men, vaginal bleeding, weakness, fever, dyspnea, syncope, headache, dizziness, GI bleed, back pain, seizure, CVA, palpatations, mental health, musculoskeletal)? @ -prior EKG interpreted by me (3pts min.). @ -yes X-rays interpreted by me (1pt min.). @ -yes negative for acute disease CT interpreted by me (1pt min.). @ -no U/S interpreted by me (1pt. min.). @ -no What testing was considered but not performed or refused? (CT, X-rays, U/S, labs)? Why? @ -none What meds were considered but not given or refused? Why? @ -none Did you discuss the management of the patient with other professionals (professionals i.e. [facility], BELT WORKER, lab, RT, psych nurse, social human services assistants, emergency operator, teacher, fire information officer, showcase trimmer)? Give summary @ -no Was smoking cessation discussed for >3mins.? @ -no Was critical care preformed (if so, how long)? @ -yes31 Were there social determinants of health that impacted care today? How? (Homelessness, low income, unemployed, alcoholism, drug addiction, transportation, low edu. Level, literacy, decrease access to med. care, intermediate, rehab)? @ -none Was there de-escalation of care discussed even if they declined (Discuss DNR or withdrawal of care, Hospice)? DNR status @ -no What co-morbidities impacted this encounter? (DM, HTN, Smoking, COPD, CAD, Cancer, CVA, ARF, Chemo, Hep., AIDS, mental health diagnosis, sleep apnea, morbid obesity)? @ -none Was patient admitted / discharged? Hospital course, mention meds given and route, prescriptions, significant lab abnormalities, going to OR and other pertinent info. @ - 63 female to the ER for evaluation of chest pain. Patient has persistent chest pain here in the emergency department will admit for possible ACS or CAD Admitted Undiagnosed new problem with uncertain prognosis? @ -no Drug Therapy requiring intensive monitoring for toxicity (Heparin, Nitro, Insul in, Cardizem)? @ -no Were any procedures done? @ -no Diagnosis/symptom? @ -Chest pain ACS CAD Acute, or Chronic, or Acute on Chronic? @ -Acute Uncomplicated (without systemic symptoms) or Complicated (systemic symptoms)? @ -Complicated Side effects of treatment? @ -no Exacerbation, Progression, or Severe Exacerbation? @ -exacerbation Poses a threat to life or bodily function? How? (Chest pain, USA, HI, pneumonia, PE, COPD, DKA, ARF, appy, cholecystitis, CVA, Diverticulitis, Homicidal, Suicidal, threat to staff... and all critical care pts) @ -yes with ACS (Shankar Fletcher) Reevaluation #5: Differential Chest Pain: Stable Angina, Unstable Angina, STEMI, NSTEMI Aortic Dissection, Pneumothorax, Musculoskeletal, Esophageal Spasm GERD, Cholecystitis, Pancreatitis, Zoster, this is not meant to be an all-inclusive list. (Shankar Fletcher) - Consultations Consultation #1: Spoke with [facility] who agrees to admit this patient (Shankar Fletcher) Chest Pain MDM <Adriana Sampson - Last Filed: 01/11/24 16:24> <Shankar Fletcher - Last Filed: 01/13/24 17:32> - MDM I completed the quick note portion of this chart signed Adriana Sampson PA-C (Adriana Sampson) 63 female to the ER for evaluation of chest pain. Patient has persistent chest pain here in the emergency department will admit for possible ACS or CAD (Shankar Fletcher) Critical Care Time Critical Care Time: Yes Total Critical Care Time: 31 <Shankar Fletcher - Last Filed: 01/13/24 17:32> Disposition <Adriana Sampson - Last Filed: 01/11/24 16:24> Is patient prescribed a controlled substance at d/c from ED?: No Time of Disposition: 18:00 <Shankar Fletcher - Last Filed: 01/13/24 17:32> Clinical Impression: Chest pain, Atypical chest pain, Unstable angina pectoris Disposition: ADMITTED IP TO THIS HOSP Condition: Fair
[2024-01-11 17:20] LABS: Basophils # (A) 0.1 k/uL (0-0.2); Basophils % (A) 1 %; Eosinophils # (A) 0.4 k/uL (0-0.7); Eosinophils % (A) 4 %; HCT 47.9 % (34.0-46.0); HGB 14.8 gm/dL (11.4-16.0); Lymphocytes # (A) 4.3 k/uL (1.0-4.8); Lymphocytes % (A) 36 %; MCH 30.5 pg (25.0-35.0); MCV 98.6 fL (80.0-100.0); Mean Platelet Volume 8.5; Monocytes # (A) 0.5 k/uL (0-1.0); Monocytes % (A) 4 %; Neutrophils # (A) 6.5 k/uL (1.3-7.7); Neutrophils % (A) 54 %; Platelet Count 482 k/uL (150-450); RBC 4.85 m/uL (3.80-5.40); RDW 13.3 % (11.5-15.5); WBC 12.1 k/uL (3.8-10.6)
--- NOTE | 2024-01-11 17:33 | XR ---
EXAMINATION TYPE: XR chest 2V DATE OF EXAM: 01/11/2024 COMPARISON: 07/08/2023 INDICATION: Chest pain, short of breath TECHNIQUE: Frontal and lateral views of the chest are obtained. FINDINGS: The heart size is normal. The pulmonary vasculature is normal. The lungs are clear. IMPRESSION: 1. No acute pulmonary process. [facility], Workstation: [facility], 01/11/2024 5:31 PM
[2024-01-11 17:36] LABS: ALT 28 U/L (4-34); AST 40 U/L (14-36); African American GFR (CKD) 71 (>60 ml/min/1.73 sqM); Albumin 4.5 g/dL (3.5-5.0); Alkaline Phosphatase 129 U/L (38-126); Anion Gap 6 mmol/L; Blood Urea Nitrogen 18 mg/dL (7-17); Calcium 9.4 mg/dL (8.4-10.2); Carbon Dioxide 25 mmol/L (22-30); Chloride 108 mmol/L (98-107); Glucose 102 mg/dL (74-99); Lipase 114 U/L (23-300); Magnesium 2.1 mg/dL (1.6-2.3); Non-African American GFR(CKD) 62 (>60 ml/min/1.73 sqM); Potassium 4.7 mmol/L (3.5-5.1); Sodium 139 mmol/L (137-145); Total Bilirubin 0.6 mg/dL (0.2-1.3); Total Protein 7.9 g/dL (6.3-8.2)
[2024-01-11 17:45] LABS: NT-Pro-B-Type Natriuretic Pept 532 pg/mL
[2024-01-11 17:47] LABS: INR 0.9 (<1.2); Partial Thromboplastin Time 23.1 sec (22.0-30.0); Prothrombin Time 10.1 sec (10.0-12.5)
[2024-01-11] MEDS ORDERED: NITROGLYCERIN SL TABS 0.4 MG TAB SUBLINGUAL PRN (22:08)
[2024-01-11] MEDS ORDERED: ACETAMINOPHEN TAB 325 MG TAB PO PRN (22:37)
[2024-01-11] MEDS ORDERED: ONDANSETRON 4 MG/2 ML VIAL IVP PRN (22:37)
[2024-01-11] MEDS: PREGABALIN 50 MG CAP PO SCH (23:09)
[2024-01-11] MEDS: HYDROcodone/APAP 7.5-325MG 1 EACH TAB PO PRN (23:09)
[2024-01-11] MEDS: MELATONIN 5 MG TABLET PO SCH (23:34)
[2024-01-11] MEDS: NICOTINE 21MG/24HR PATCH TRANSDERM SCH (23:34)
--- NOTE | 2024-01-11 23:55 | P.HPIM ---
History of Present Illness H&P Date: 01/11/24 History of present illness; Patient is a 62-year-old female with asthma, GERD, RLS, osteoarthritis who presents with new onset chest pain. Symptoms began this morning at 11:30 AM upon waking characterized as stabbing sensation in left sternal area and nonradiating. Symptoms are intermittent through the day, worse with deep breathing, and nonexertional in nature. Pain is not dependent on movement. She has no associated leg swelling or warmth. She states yesterday she was standing longer than usual which may have precipitated pain. Patient reports absence of fever, chills, weight loss, palpitations, diaphoresis, dyspnea, cough, nausea, vomiting, constipation, diarrhea, abdominal pain, weakness, myalgia, dizziness, headache, and dysuria. EKG done in the ER independently interpreted showed heart rate of 96, no ST segment elevation or depression seen, no T-wave inversions seen. Chest x-ray done independently interpreted in the ER showed no acute process Spoke with the ER physician, patient admission was accepted by internal medicine service for treatment of chest pain REVIEW OF SYSTEMS: Pertinent positives and negatives noted in HPI. PHYSICAL EXAMINATION: Vitals reviewed GENERAL: No acute distress. Well developed, well nourished. HEENT: Pupils are round and equally reacting to light. EOMI. No scleral icterus. Normocephalic, atraumatic. No pharyngeal erythema. No thyromegaly. CARDIOVASCULAR: S1 and S2 present. No murmurs, rubs, or gallops. Left sternal tenderness PULMONARY: Chest is clear to auscultation, no wheezing, rhonchi, or crackles. ABDOMEN: Soft, nontender, nondistended, normoactive bowel sounds. No palpable organomegaly. MUSCULOSKELETAL: No apparent joint swelling and deformities. EXTREMITIES: No apparent cyanosis, clubbing, or pedal edema. NEUROLOGICAL: The patient is alert and oriented x3, Gross neurological examinati on did not reveal any focal deficits. 5/5 Strength bilateral UE and LE SKIN: No apparent rashes. Assessment and plan Patient is a 62-year-old female with asthma, GERD, RLS, osteoarthritis who presents with new onset chest pain. #Chest pain, ACS rule out -trend troponins, initial negative continue cardiac monitoring -TSH 05/2023 is WNL, pending HbA1c, Lipid panel -given aspirin 325 Continue Nitrostat 0.4 mg sublingual Q5M as needed - Cardiology consulted #Leukocytosis, likely stress reaction Afebrile, no obvious source of infection Monitor CBC #Tobacco addiction - Currently smokes 1.5 packs daily - Counseled patient on smoking cessation Chronic Medical Conditions #Asthma Resume Ventolin as needed #Osteoarthritic pain Resume home [place], Lyrica #RLS Resume home Requip #GERD - Resume home Pantoprazole F: P.o. E: Replete as needed N: Heart healthy diet DVT ppx: Subq Lovenox 40 meq daily Code status: Full code Anticipated discharge place: Home Anticipated discharge time: Tomorrow Dictation was produced using [employer] dictation software. Please excuse any grammatical, word or spelling errors. 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 age 16, sole cataracts,colonoscopy Past Anesthesia/Blood Transfusion Reactions: Motion Sickness Additional Past Anesthesia/Blood Transfusion Reaction / Comment(s): motion sickness in elevator Past Psychological History: Anxiety Smoking Status: Current every day smoker Past Alcohol Use History: Occasional Past Drug Use History: None Reported - Past Family History Father Family Medical History: Cancer Additional Family Medical History / Comment(s): colon cancer Mother Family Medical History: Deep Vein Thrombosis (DVT) Additional Family Medical History / Comment(s): emphysema Medications and Allergies Home Medications Medication Instructions Recorded Confirmed Type HYDROcodone/APAP 7.5-325MG [[place] 1 tab PO TID PRN 05/02/16 01/11/24 History 7.5-325] rOPINIRole HCL [Requip] 0.5 mg PO HS 10/29/16 01/11/24 History Albuterol Inhaler [Ventolin Hfa 2 puff INHALATION RT-QID PRN 10/07/20 01/11/24 History Inhaler] Multivitamins, Thera [Multivitamin 1 tab PO DAILY 10/07/20 01/11/24 History (formulary)] Pregabalin 50 mg PO TID 02/23/23 01/11/24 History Omeprazole [PriLOSEC] 20 mg PO DAILY 01/11/24 01/11/24 History Allergies Allergy/AdvReac Type Severity Reaction Status Date / Time aspirin AdvReac Bleeding Verified 01/11/24 18:57 disorder as a child Physical Exam Vitals: Vital Signs Temp Pulse Resp BP Pulse Ox 01/11/24 22:35 98.4 F 89 18 137/72 93 L 01/11/24 21:43 86 20 161/82 95 01/11/24 18:38 78 20 145/77 97 01/11/24 16:01 98.1 F 99 20 147/85 98 Intake and Output 01/11/24 01/11/24 01/12/24 14:59 22:59 06:59 Other: Weight 75.296 kg Results CBC & Chem 7: 01/11/24 17:05 01/11/24 17:05 Labs: Abnormal Lab Results - Last 24 Hours (Table) 01/11/24 01/11/24 Range/Units 17:05 17:05 WBC 12.1 H (3.8-10.6) k/uL Hct 47.9 H (34.0-46.0) % Plt Count 482 H (150-450) k/uL Chloride 108 H (98-107) mmol/L BUN 18 H (7-17) mg/dL Glucose 102 H (74-99) mg/dL AST 40 H (14-36) U/L Alkaline Phosphatase 129 H (38-126) U/L
[2024-01-12] MEDS: PANTOPRAZOLE 40 MG TABLET PO SCH (05:20)
[2024-01-12] MEDS ORDERED: DOBUTamine DRIP for NUC MED 500 MG/250 ML BAG IV ONE (08:00)
[2024-01-12] MEDS: ALBUTEROL NEBULIZED 2.5 MG/3 ML INHALATION PRN (08:44)
[2024-01-12] MEDS: MULTIVITAMINS, THERA 1 EACH TAB PO SCH (08:47)
[2024-01-12] MEDS: ASPIRIN 325 MG TAB PO SCH (08:48)
[2024-01-12] MEDS: ENOXAPARIN 40 MG/0.4 ML SYRINGE SQ SCH (08:48)
[2024-01-12 09:02] VITALS: BP 138/68; PULSE 83; RESP 20; TEMP 98.1
[2024-01-12] MEDS ORDERED: DOBUTamine DRIP for NUC MED 500 MG in DEXTROSE/WATER 1 250ML.BAG IV PRN (09:26)
[2024-01-12 09:28] LABS: Chol/HDL Ratio 5.07 Ratio; LDL Cholesterol,Calculated 94.3 mg/dL (0.0-131.0)
--- NOTE | 2024-01-12 09:42 | P.CRDCN ---
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 No previous cardiac history. We have been asked to evaluate the patient for chest pain. Patient presented to the hospital due to tightness in her chest along with shortness of breath. Blood pressure 138/68, heart rate 83, pulse ox 92% on room air. EKG: Sinus rhythm with no acute ST-T wave changes x 2 Chest x-ray: No acute process Laboratory studies: WBC 12.1, hemoglobin 14.8. Creatinine 0.98. Troponin negative x 3. proBNP 532. Triglycerides 299, cholesterol 192, LDL 94, HDL 37. D-dimer 0.24. Home cardiac medications: None Review Of Systems: At the time of my exam: CONSTITUTIONAL: Denies fever or chills. HEENT: Denies blurred vision, vision changes, or eye pain. Denies hemoptysis CARDIOVASCULAR: Denies chest pain. Denies orthopnea. Denies PND. Denies palpitations RESPIRATORY: Denies shortness of breath. GASTROINTESTINAL: Denies abdominal pain. Denies nausea or vomiting. HEMATOLOGIC: Denies bleeding disorders. GENITOURINARY: Denies any blood in urine. SKIN: Denies puritis. Denies rash. Physical examination: Gen: This is a 63-year-old female resting in bed in no acute distress VS: reviewed HEENT: Head is atraumatic, normocephalic. Pupils equal, round. Sclerae is anicteric. NECK: Supple. No JVD. LUNGS: Clear to auscultation. No wheezes or rhonchi. No intercostal retractions. HEART: Regular rate and rhythm. No murmur. ABDOMEN: Soft No tenderness. EXTREMITIES: No pedal edema. No calf tenderness. NEUROLOGICAL: Patient is awake, alert and oriented x3. Assessment: Atypical chest pain, acute coronary syndrome ruled out History of portacaval shunt with thrombus GERD Plan: Schedule patient for dobutamine stress echo Obtain 2-D echocardiogram and Doppler study to assess cardiac structure and function If stress test is unremarkable, patient is cleared for discharge home. Thank you kindly for this consultation. Nurse practitioner note has been reviewed, I agree with documented findings and plan of care. Patient was seen and examined. 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 Smoking Status: Current every day smoker Past Alcohol Use History: Occasional Additional Past Alcohol Use History / Comment(s): started smoking 1974 , smoking 1 1/ PPD, hx alcohol abuse-none since past month Past Drug Use History: None Reported - Past Family History Father Family Medical History: Cancer Additional Family Medical History / Comment(s): colon cancer Mother Family Medical History: Deep Vein Thrombosis (DVT) Additional Family Medical History / Comment(s): emphysema Medications and Allergies Home Medications Medication Instructions Recorded Confirmed Type HYDROcodone/APAP 7.5-325MG [[place] 1 tab PO TID PRN 05/02/16 01/11/24 History 7.5-325] rOPINIRole HCL [Requip] 0.5 mg PO HS 10/29/16 01/11/24 History Albuterol Inhaler [Ventolin Hfa 2 puff INHALATION RT-QID PRN 10/07/20 01/11/24 History Inhaler] Multivitamins, Thera [Multivitamin 1 tab PO DAILY 10/07/20 01/11/24 History (formulary)] Pregabalin 50 mg PO TID 02/23/23 01/11/24 History Omeprazole [PriLOSEC] 20 mg PO DAILY 01/11/24 01/11/24 History Allergies Allergy/AdvReac Type Severity Reaction Status Date / Time aspirin AdvReac Bleeding Verified 01/11/24 18:57 disorder as a child Physical Exam Vitals: Vital Signs Temp Pulse Pulse Resp BP BP Pulse Ox 01/12/24 07:15 97.7 F 81 16 143/79 92 L 01/12/24 01:49 98.4 F 89 19 125/75 91 L 01/11/24 23:05 97.7 F 85 18 148/81 97 01/11/24 22:35 98.4 F 89 18 137/72 93 L 01/11/24 21:43 86 20 161/82 95 01/11/24 18:38 78 20 145/77 97 01/11/24 16:01 98.1 F 99 20 147/85 98 Intake and Output 01/11/24 01/12/24 01/12/24 22:59 06:59 14:59 Other: # Voids 1 Weight 75.296 kg Results 01/11/24 17:05 01/11/24 17:05 Cardiac Enzymes 01/11/24 01/11/24 01/11/24 Range/Units 17:05 17:05 23:30 AST 40 H (14-36) U/L Troponin I <0.012 <0.012 (0.000-0.034) ng/mL 01/12/24 Range/Units 02:07 AST (14-36) U/L Troponin I <0.012 (0.000-0.034) ng/mL Coagulation 01/11/24 Range/Units 17:05 PT 10.1 (10.0-12.5) sec APTT 23.1 (22.0-30.0) sec CBC 01/11/24 Range/Units 17:05 WBC 12.1 H (3.8-10.6) k/uL RBC 4.85 (3.80-5.40) m/uL Hgb 14.8 (11.4-16.0) gm/dL Hct 47.9 H (34.0-46.0) % Plt Count 482 H (150-450) k/uL Comprehensive Metabolic Panel 01/11/24 Range/Units 17:05 Sodium 139 (137-145) mmol/L Potassium 4.7 (3.5-5.1) mmol/L Chloride 108 H (98-107) mmol/L Carbon Dioxide 25 (22-30) mmol/L BUN 18 H (7-17) mg/dL Creatinine 0.98 (0.52-1.04) mg/dL Glucose 102 H (74-99) mg/dL Calcium 9.4 (8.4-10.2) mg/dL AST 40 H (14-36) U/L ALT 28 (4-34) U/L Alkaline Phosphatase 129 H (38-126) U/L Total Protein 7.9 (6.3-8.2) g/dL Albumin 4.5 (3.5-5.0) g/dL Current Medications Generic Name Dose Route Start Last Admin Trade Name Freq PRN Reason Stop Dose Admin Acetaminophen 650 mg 01/11/24 22:37 Acetaminophen Tab 325 Mg Tab PO Q6HR PRN Fever and/ or Pain Hydrocodone Bitart/Acetaminophen 1 each 01/11/24 22:09 01/11/24 23:09 Hydrocodone/Apap 7.5-325mg 1 Each Tab PO 1 each TID PRN Administration Pain Albuterol Sulfate 2.5 mg 01/11/24 22:09 Albuterol Nebulized 2.5 Mg/3 Ml INHALATION RT-QID PRN Shortness Of Breath Aspirin 325 mg 01/12/24 09:00 Aspirin 325 Mg Tab PO DAILY [facility] Enoxaparin Sodium 40 mg 01/12/24 09:00 Enoxaparin 40 Mg/0.4 Ml Syringe SQ DAILY [facility] Melatonin 5 mg 01/11/24 23:30 01/11/24 23:34 Melatonin 5 Mg Tablet PO 5 mg HS [facility] Administration Multivitamins 1 each 01/12/24 09:00 Multivitamins, Thera 1 Each Tab PO DAILY [facility] Nicotine 1 patch 01/11/24 23:30 01/11/24 23:34 Nicotine 21mg/24hr Patch TRANSDERM 1 patch DAILY [facility] Administration Nitroglycerin 0.4 mg 01/11/24 22:08 Nitroglycerin Sl Tabs 0.4 Mg Tab SUBLINGUAL Q5M PRN Chest Pain Ondansetron HCl 4 mg 01/11/24 22:37 Ondansetron 4 Mg/2 Ml Vial IVP Q6HR PRN Nausea And Vomiting Pantoprazole Sodium 40 mg 01/12/24 07:30 01/12/24 05:20 Pantoprazole 40 Mg Tablet PO 40 mg DAILY@0730 [facility] Administration Pregabalin 50 mg 01/11/24 22:15 01/11/24 23:09 Pregabalin 50 Mg Cap PO 50 mg TID ARIANNE Administration Ropinirole HCl 0.5 mg 01/11/24 22:15 01/11/24 23:25 Ropinirole Hcl 0.25 Mg Tab PO 0.5 mg HS ARIANNE Administration Intake and Output 01/11/24 01/12/24 01/12/24 22:59 06:59 14:59 Other: # Voids 1 Weight 75.296 kg 01/11/24 17:05 01/11/24 17:05
--- NOTE | 2024-01-12 12:37 | CA ---
Dobutamine Stress Echocardiogram Report Tiffany Ontiveros Age: 63 Gender: F : 1960 Exam Date: 01/12/2024 11:28 Exam Location: [facility] Ordering Physician: Zonia Serra Referring Physician: [place] FOREMAN Glove Wrapper: Javan Jett Technologist: Ht (in): 61 Wt (lb): 166 Procedure CPT: Indication: Chest Pain ICD-9 Codes: Rhythm: Patient History: Cardiac Medications: see chart Medications in past 24 hours: Contrast: N/A Total Dose (mL): NA Stress Results Protocol: Dobutamine Peak Dose (???g/kg/min): 40 Duration (min:sec): Atropine:(mg) Target HR: 134 Double Product: [id number] Resting HR: 81 Resting BP: 141 / 77 Peak HR: 144 Peak BP: 187 / 82 Max Predicted HR: 158 91 % Max Predicted HR Stress Summary: BP Response: Reason for Termination: Exceeded target heart rate (85% max predicted) Cardiac Symptoms: ECG Analysis Resting EKG: Normal sinus rhythm normal axis normal intervals Stress EKG: Patient was given intravenous dobutamine for a period of 12 minutes as per protocol achieving 85% of predicted maximal heart rate without chest pain or diagnostic ST segment depression Arrhythmia: Echo Analysis Base Echo Analysis: Normal left ventricular size wall motion and systolic function Low Echo Anaylsis: Normal Peak Echo Analysis: Normal hyperdynamic response Recovery Echo: Normal MEASUREMENTS (Male/Female) Normal Values CONCLUSIONS Negative dobutamine stress echo Dr. Haresh Collins MD (Electronically Signed) Final Date: 12 January 2024 12:36
--- NOTE | 2024-01-12 12:43 | CA ---
Transthoracic Echo Report Name: Tiffany Ontiveros Age: 63 Gender: F : 1960 Exam Date: 01/12/2024 11:58 Exam Location: [facility] Ht (in): 61 Wt (lb): 166 Ordering Physician: Zonia Serra Attending/Referring Phys: [id number], Ponce Forensic Ballistics Expert Mahnaz Coronado RDCS Procedure CPT: Indications: Chest Pain Cardiac Hx: Technical Quality: Fair Contrast 1: Total Dose (mL): Contrast 2: Total Dose (mL): MEASUREMENTS (Male / Female) Normal Values 2D ECHO LV Diastolic Diameter PLAX 3.8 cm 4.2 - 5.9 / 3.9 - 5.3 cm LV Systolic Diameter PLAX 2.0 cm IVS Diastolic Thickness 1.0 cm 0.6 - 1.0 / 0.6 - 0.9 cm LVPW Diastolic Thickness 1.2 cm 0.6 - 1.0 / 0.6 - 0.9 cm LV Relative Wall Thickness 0.6 RV Internal Dim ED PLAX 3.2 cm LA Volume 32.0 cm??? 18 - 58 / 22 - 52 cm??? LA Volume Index 17.5 cm???/m??? 16 - 28 cm???/m??? M-MODE Aortic Root Diameter MM 2.9 cm LA Systolic Diameter MM 3.9 cm LA Ao Ratio MM 1.4 AV Cusp Separation MM 1.4 cm DOPPLER AV Peak Velocity 122.5 cm/s AV Peak Gradient 6.0 mmHg AV Mean Velocity 90.5 cm/s AV Mean Gradient 3.6 mmHg AV Velocity Time Integral 22.4 cm LVOT Peak Velocity 102.1 cm/s LVOT Peak Gradient 4.2 mmHg LVOT Velocity Time Integral 21.1 cm MV Area PHT 5.9 cm??? Mitral E Point Velocity 65.3 cm/s Mitral A Point Velocity 85.5 cm/s Mitral E to A Ratio 0.8 MV Deceleration Time 127.8 ms MV E' Velocity 6.7 cm/s Mitral E to MV E' Ratio 9.8 TR Peak Velocity 137.3 cm/s TR Peak Gradient 7.5 mmHg Right Ventricular Systolic Press 12.5 mmHg FINDINGS Left Ventricle Mildly increased left ventricular wall thickness. Left ventricular cavity size normal. Normal left ventricular systolic function with no obvious regional wall motion abnormalities. Left ventricular ejection fraction is estimated at 55-60 %. Grade 1 diastolic dysfunction. Right Ventricle Normal right ventricular size and function. Right ventricular systolic pressure within normal limits. Right Atrium Normal right atrial size. Left Atrium Normal left atrial size. Mitral Valve Structurally normal mitral valve. No mitral stenosis, regurgitation or prolapse. Mild mitral annular calcification. Aortic Valve Trileaflet aortic valve. No aortic valve stenosis or regurgitation. Tricuspid Valve Structurally normal tricuspid valve. Mild tricuspid regurgitation. Pulmonic Valve Structurally normal pulmonic valve. Pericardium No pericardial effusion. Aorta Normal size aortic root and proximal ascending aorta. CONCLUSIONS Normal LV function Previewed by: Dr. Haresh Collins MD (Electronically Signed) Final Date: 12 January 2024 12:42
--- NOTE | 2024-01-12 13:20 | P.HPIM ---
History of Present Illness H&P Date: 01/12/24 This is a 63-year-old female with past medical history of GERD, arthritis, pneumonia, daily smoker. 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 Patient has no prior cardiac history. Patient came into the hospital secondary to chest tightness in the left chest wall radiating up into the shoulder as well as associated shortness of breath. EKG reveals normal sinus rhythm with no significant ST or T wave changes chest x-ray was negative for acute pulmonary process. White blood cell count was 12.1, hemoglobin 14.1, creatinine of 0.98. Her proBNP was 532, troponin level is negative x 3. Her lipid panel has been completed c holesterol level of 192, triglyceride of 299, LDL 94, HDL of 37. Her D-dimer was 0.24 which is normal. Patient was admitted to the hospital with a consult placed to cardiology they felt that this was not an acute coronary syndrome and recommended patient to undergo dobutamine stress echo. Time of my evaluation patient states that she feels a mild discomfort in the chest wall but has improved since admission. Likely musculoskeletal in nature. REVIEW OF SYSTEMS: CONSTITUTIONAL: No fever, no malaise, no fatigue. HEENT: No recent visual problems or hearing problems. Denied any sore throat. CARDIOVASCULAR: No chest pain, orthopnea, PND, no palpitations, no syncope. PULMONARY: No shortness of breath, no cough, no hemoptysis. GASTROINTESTINAL: No diarrhea, no nausea, no vomiting, no abdominal pain. NEUROLOGICAL: No headaches, no weakness, no numbness. HEMATOLOGICAL: Denies any bleeding or petechiae. GENITOURINARY: Denies any burning micturition, frequency, or urgency. MUSCULOSKELETAL/RHEUMATOLOGICAL: Denies any joint pain, swelling, or any muscle pain. ENDOCRINE: Denies any polyuria or polydipsia. The rest of the 14-point review of systems is negative. PHYSICAL EXAMINATION: GENERAL: The patient is alert and oriented x3, not in any acute distress. Well developed, well nourished. HEENT: Pupils are round and equally reacting to light. EOMI. No scleral icterus. No conjunctival pallor. Normocephalic, atraumatic. No pharyngeal erythema. No thyromegaly. CARDIOVASCULAR: S1 and S2 present. No murmurs, rubs, or gallops. PULMONARY: Chest is clear to auscultation, no wheezing or crackles. ABDOMEN: Soft, nontender, nondistended, normoactive bowel sounds. No palpable o rganomegaly. MUSCULOSKELETAL: No joint swelling or deformity. EXTREMITIES: No cyanosis, clubbing, or pedal edema. NEUROLOGICAL: Gross neurological examination did not reveal any focal deficits. SKIN: No rashes. Assessment and Plan Chest pain, atypical, ACS has been ruled out this is likely musculoskeletal in nature. Gastroesophageal reflux disease. History of arthritis Former Smoker GI prophylaxis Full Code Plan Pending dobutamine stress echo if negative patient will be discharged home. Resume appropriate home medications. The impression and plan of care has been dictated by Belen Dutton Nurse Practitioner as directed. Dr. Elliott MD I have performed a history and physical examination and medical decision making of this patient, discussed the same with the dictator, and agree with the dictators assessment and plan as written, documented as a scribe. Based on total visit time, I have performed more than 50% of this visit. 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 Smoking Status: Current every day smoker Past Alcohol Use History: Occasional Additional Past Alcohol Use History / Comment(s): started smoking 1974 , smoking 1 1/2 PPD, hx alcohol abuse-none since past month Past Drug Use History: None Reported - Past Family History Father Family Medical History: Cancer Additional Family Medical History / Comment(s): colon cancer Mother Family Medical History: Deep Vein Thrombosis (DVT) Additional Family Medical History / Comment(s): emphysema Medications and Allergies Home Medications Medication Instructions Recorded Confirmed Type HYDROcodone/APAP 7.5-325MG [[place] 1 tab PO TID PRN 05/02/16 01/11/24 History 7.5-325] rOPINIRole HCL [Requip] 0.5 mg PO HS 10/29/16 01/11/24 History Albuterol Inhaler [Ventolin Hfa 2 puff INHALATION RT-QID PRN 10/07/20 01/11/24 History Inhaler] Multivitamins, Thera [Multivitamin 1 tab PO DAILY 10/07/20 01/11/24 History (formulary)] Pregabalin 50 mg PO TID 02/23/23 01/11/24 History Omeprazole [PriLOSEC] 20 mg PO DAILY 01/11/24 01/11/24 History Allergies Allergy/AdvReac Type Severity Reaction Status Date / Time aspirin AdvReac Bleeding Verified 01/11/24 18:57 disorder as a child Physical Exam Vitals: Vital Signs Temp Pulse Pulse Resp BP BP Pulse Ox 01/12/24 09:00 98.1 F 80 83 20 138/68 01/12/24 08:49 80 01/12/24 07:15 97.7 F 81 16 143/79 92 L 01/12/24 01:49 98.4 F 89 19 125/75 91 L 01/11/24 23:05 97.7 F 85 18 148/81 97 01/11/24 22:35 98.4 F 89 18 137/72 93 L 01/11/24 21:43 86 20 161/82 95 01/11/24 18:38 78 20 145/77 97 01/11/24 16:01 98.1 F 99 20 147/85 98 Intake and Output 01/11/24 01/12/24 01/12/24 22:59 06:59 14:59 Other: # Voids 1 Weight 75.296 kg Results CBC & Chem 7: 01/11/24 17:05 01/11/24 17:05 Labs: Abnormal Lab Results - Last 24 Hours (Table) 01/11/24 01/11/24 01/12/24 Range/Units 17:05 17:05 02:07 WBC 12.1 H (3.8-10.6) k/uL Hct 47.9 H (34.0-46.0) % Plt Count 482 H (150-450) k/uL Chloride 108 H (98-107) mmol/L BUN 18 H (7-17) mg/dL Glucose 102 H (74-99) mg/dL AST 40 H (14-36) U/L Alkaline Phosphatase 129 H (38-126) U/L Triglycerides 299.00 H (0.00-149.00) mg/dL VLDL Cholesterol, Calc 59.80 H (5.00-40.00) mg/dL HDL Cholesterol 37.90 L (40.00-60.00) mg/dL Thrombosis Risk Factor Assmnt - Choose All That Apply Any of the Below Risk Factors Present?: Yes Each Factor Represents 1 point: Obesity (BMI >25) Other Risk Factors: Yes Each Risk Factor Represents 2 Points: Age 61-74 years Other congenital or acquired thrombophilia - If yes, enter type in comment: No Thrombosis Risk Factor Assessment Total Risk Factor Score: 3 Thrombosis Risk Factor Assessment Level: Moderate Risk Assessment and Plan Time with Patient: Less than 30
--- NOTE | 2024-01-12 13:23 | P.DS ---
Providers Date of admission: 01/11/24 22:08 Attending physician: Sasha Morataya Consults: 01/11/24 22:08 Consult Physician Urgent Consulting Provider: Moe Galeas Consult Reason/Comments: chest pain Do you want consulting provider notified?: Yes Primary care physician: Estiven Sagastume [facility] Course: This is a 63-year-old female with past medical history of GERD, arthritis, pneumonia, daily smoker. 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 Patient has no prior cardiac history. Patient came into the hospital secondary to chest tightness in the left chest wall radiating up into the shoulder as well as associated shortness of breath. EKG reveals normal sinus rhythm with no significant ST or T wave changes chest x-ray was negative for acute pulmonary process. White blood cell count was 12.1, hemoglobin 14.1, creatinine of 0.98. Her proBNP was 532, troponin level is negative x 3. Her lipid panel has been completed choles terol level of 192, triglyceride of 299, LDL 94, HDL of 37. Her D-dimer was 0.24 which is normal. Patient was admitted to the hospital with a consult placed to cardiology they felt that this was not an acute coronary syndrome and recommended patient to undergo dobutamine stress echo. Time of my evaluation patient states that she feels a mild discomfort in the chest wall but has improved since admission. Likely musculoskeletal in nature. Dobutamine stress echo has been completed which is negative. Echocardiogram reveals an EF of 55 to 60% with mild tricuspid regurgitation. Patient will be discharged home. REVIEW OF SYSTEMS: CONSTITUTIONAL: No fever, no malaise, no fatigue. HEENT: No recent visual problems or hearing problems. Denied any sore throat. CARDIOVASCULAR: No chest pain, orthopnea, PND, no palpitations, no syncope. PULMONARY: No shortness of breath, no cough, no hemoptysis. GASTROINTESTINAL: No diarrhea, no nausea, no vomiting, no abdominal pain. NEUROLOGICAL: No headaches, no weakness, no numbness. HEMATOLOGICAL: Denies any bleeding or petechiae. GENITOURINARY: Denies any burning micturition, frequency, or urgency. MUSCULOSKELETAL/RHEUMATOLOGICAL: Denies any joint pain, swelling, or any muscle pain. ENDOCRINE: Denies any polyuria or polydipsia. The rest of the 14-point review of systems is negative. PHYSICAL EXAMINATION: GENERAL: The patient is alert and oriented x3, not in any acute distress. Well developed, well nourished. HEENT: Pupils are round and equally reacting to light. EOMI. No scleral icterus. No conjunctival pallor. Normocephalic, atraumatic. No pharyngeal erythema. No thyromegaly. CARDIOVASCULAR: S1 and S2 present. No murmurs, rubs, or gallops. PULMONARY: Chest is clear to auscultation, no wheezing or crackles. ABDOMEN: Soft, nontender, nondistended, normoactive bowel sounds. No palpable organomegaly. MUSCULOSKELETAL: No joint swelling or deformity. EXTREMITIES: No cyanosis, clubbing, or pedal edema. NEUROLOGICAL: Gross neurological examination did not reveal any focal deficits. SKIN: No rashes. Assessment and Plan Chest pain, atypical, ACS has been ruled out this is likely musculoskeletal in nature. Gastroesophageal reflux disease. History of arthritis Former Smoker GI prophylaxis Full Code Plan Dobutamine stress echo is negative patient will be discharged home. Resume appropriate home medications. The impression and plan of care has been dictated by Belen Dutton, Nurse Practitioner as directed. Dr. Elliott MD I have performed a history and physical examination and medical decision making of this patient, discussed the same with the dictator, and agree with the dictators assessment and plan as written, documented as a scribe. Based on total visit time, I have performed more than 50% of this visit. Patient Condition at Discharge: Fair Plan - Discharge Summary Discharge Rx Participant: No New Discharge Prescriptions: Continue HYDROcodone/APAP 7.5-325MG [[place] 7.5-325] 1 tab PO TID PRN PRN Reason: Pain rOPINIRole HCL [Requip] 0.5 mg PO HS Omeprazole [PriLOSEC] 20 mg PO DAILY Albuterol Inhaler [Ventolin Hfa Inhaler] 2 puff INHALATION RT-QID PRN PRN Reason: Shortness Of Breath Multivitamins, Thera [Multivitamin (formulary)] 1 tab PO DAILY Pregabalin 50 mg PO TID Discharge Medication List HYDROcodone/APAP 7.5-325MG [[place] 7.5-325] 1 tab PO TID PRN 05/02/16 [History] rOPINIRole HCL [Requip] 0.5 mg PO HS 10/29/16 [History] Albuterol Inhaler [Ventolin Hfa Inhaler] 2 puff INHALATION RT-QID PRN 10/07/20 [History] Multivitamins, Thera [Multivitamin (formulary)] 1 tab PO DAILY 10/07/20 [History] Pregabalin 50 mg PO TID 02/23/23 [History] Omeprazole [PriLOSEC] 20 mg PO DAILY 01/11/24 [History] Follow up Appointment(s)/Referral(s): Estiven Sagastume MD [Primary Care Provider] - 1-2 days Discharge Disposition: HOME SELF-CARE
== END 2024-01-12 14:57 | disposition home or self-care (01) ==
LOC: EC 15:46 → 6NMEDSUR 22:08
PROVIDERS: ADMIT Hospitalist; ATTEND Hospitalist
DX: R07.89 Other chest pain (principal); K21.9 Gastro-esophageal reflux disease without esophagitis; G25.81 Restless legs syndrome; F41.9 Anxiety disorder, unspecified; Z87.891 Personal history of nicotine dependence; M19.90 Unspecified osteoarthritis, unspecified site; Z87.01 Personal history of pneumonia (recurrent); Z79.899 Other long term (current) drug therapy; Z80.0 Family history of malignant neoplasm of digestive organs; Z82.5 Family history of asthma and other chronic lower respiratory diseases
CPT/HCPCS: 96372; 99291; 36415; 94640; 93005 ×2; 93306; 93351; 85379; 83880; 80061; 80053; 83690; 83735; 84484 ×2; 85025; 85610; 85730; 83036; 71046; G0378 ×2; S4990 ×2; J1250; J1650

== ENCOUNTER 2024-01-17 07:48 | Day surgery (SDC) | payer MEDICARE ==
[2024-01-13 14:38] VITALS: BMI 31.4
[~2024-01-17 07:48] MED LIST changes: -DEXAMETHASONE SOD PHOSPHATE 10 MG/ML 1 ML VIAL IV ONE; -INDOMETHACIN 50MG SUPPOSITORY RECTAL ONE; -LACTATED RINGERS 1,000 ML IV NR; +LACTATED RINGERS 1,000 ML IV SCH; -LEVOFLOXACIN 500MG-D5W PMX 500 MG in DEXTROSE/WATER 1 100ML.BAG IVPB NR; +LIDOCAINE 1% (10MG/ML) FOR IV START INTRADERMA PRN; -LIDOCAINE 1% 20 ML VIAL (10MG/ML) FOR IV START INTRADERMA PRN; -MIDAZOLAM 2 MG/2 ML VIAL IV PRN; -fentaNYL (PF) 50 MCG/ML 2 ML AMP IV PRN
[2024-01-17] MEDS ORDERED: ONDANSETRON 4 MG/2 ML VIAL IVP PRN (08:19)
[2024-01-17] MEDS ORDERED: LIDOCAINE 1% (10MG/ML) FOR IV START INTRADERMA PRN (08:19)
[2024-01-17 08:23] VITALS: TEMP 97.3
[2024-01-17] MEDS: IV FLUID CONTINUATION 1,000 ML IV ONE (08:39)
[2024-01-17] MEDS: LACTATED RINGERS 1,000 ML IV SCH (08:40)
[2024-01-17] MEDS ORDERED: PROPOFOL 10 MG/ML 20 ML VIAL IV ONE (08:53)
[2024-01-17] MEDS ORDERED: LIDOCAINE 1% INJ 10MG/ML (20 ML MDV) ONE (08:53)
--- NOTE | 2024-01-17 08:57 | P.GSHP ---
History of Present Illness H&P Date: 01/17/24 Chief Complaint: Colon cancer screening 63-year-old female here for colonoscopy. Last colonoscopy 11 years ago. No bowel complaints. Family history of colon cancer in her father. Last colonoscopy was normal. 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 blood clot to abdomen 4-5years ago. 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, portal shunt in abdomen age 16, sole cataracts,colonoscopy Past Anesthesia/Blood Transfusion Reactions: No Reported Reaction Additional Past Anesthesia/Blood Transfusion Reaction / Comment(s): motion sickness in elevator Smoking Status: Current every day smoker - Past Family History Father Family Medical History: Cancer Additional Family Medical History / Comment(s): colon cancer Mother Family Medical History: Deep Vein Thrombosis (DVT) Additional Family Medical History / Comment(s): emphysema Medications and Allergies Home Medications Medication Instructions Recorded Confirmed Type HYDROcodone/APAP 7.5-325MG [[place] 7.5 mg PO TID PRN 05/02/16 01/17/24 History 7.5-325] rOPINIRole HCL [Requip] 0.5 mg PO HS 10/29/16 01/17/24 History Albuterol Inhaler [Ventolin Hfa 2 puff INHALATION RT-QID PRN 10/07/20 01/17/24 H istory Inhaler] Multivitamins, Thera [Multivitamin 1 tab PO DAILY 10/07/20 01/17/24 History (formulary)] Pregabalin 50 mg PO TID 02/23/23 01/17/24 History Omeprazole [PriLOSEC] 20 mg PO DAILY 01/11/24 01/17/24 History Allergies Allergy/AdvReac Type Severity Reaction Status Date / Time aspirin AdvReac Bleeding Verified 11/05/24 08:23 disorder as a child Surgical - Exam Vital Signs Temp Pulse Resp BP Pulse Ox 97.3 F L 97 16 129/64 100 01/17/24 08:22 01/17/24 08:22 01/17/24 08:22 01/17/24 08:22 01/17/24 08:22 Physical exam: General: Well-developed, well-nourished HEENT: Normocephalic, sclerae nonicteric Abdomen: Nontender, nondistended Extremities: No edema Neuro: Alert and oriented Assessment and Plan (1) Colon cancer screening Narrative/Plan: Will proceed with colonoscopy at this time. Current Visit: Yes Status: Acute Code(s): Z12.11 - ENCOUNTER FOR SCREENING FOR MALIGNANT NEOPLASM OF COLON SNOMED Code(s): 057973687
--- NOTE | 2024-01-17 09:16 | P.PCN ---
Date of Procedure: 01/17/24 Procedure(s) Performed: PREOPERATIVE DIAGNOSIS: Colon cancer screening with family history of colon cancer POSTOPERATIVE DIAGNOSIS: Mild diverticulosis, tortuous colon unable to pass beyond the mid transverse colon PROCEDURE: Colonoscopy ANESTHESIA: MAC SURGEON: Lance Lilly M.D. SPECIMENS: None ENDOSCOPIC PROCEDURE: The patient was placed on the endoscopy table in the left decubitus position. The Olympus colonoscope was inserted into the anus and passed under direct visualization to the mid transverse colon. The patient had significant tortuosity. We were unable to advance beyond the mid transverse colon despite multiple abdominal wall pressures and changes in positioning on the stretcher. The scope was withdrawn. There were no visible abnormalities throughout the transverse descending sigmoid and rectum. There was mild diverticulosis. Digital rectal examination was normal. The patient was taken to the recovery room in stable condition per anesthesia guidelines. RECOMMENDATIONS: Resume diet. Will discuss options of barium enema with patient. Repeat colonoscopy every 5 years given patient's family history of colon cancer in father
[2024-01-17 09:36] VITALS: BP 110/73; PULSE 74; RESP 16
== END 2024-01-17 10:14 | disposition home or self-care (01) ==
LOC: ORWHC2ENDO 07:48
PROVIDERS: ATTEND Surgery
DX: Z12.11 Encounter for screening for malignant neoplasm of colon (principal); K57.30 Diverticulosis of large intestine without perforation or abscess without bleeding; J45.909 Unspecified asthma, uncomplicated; M19.90 Unspecified osteoarthritis, unspecified site; G25.81 Restless legs syndrome; F17.200 Nicotine dependence, unspecified, uncomplicated; Z88.6 Allergy status to analgesic agent; Z90.49 Acquired absence of other specified parts of digestive tract; Z80.0 Family history of malignant neoplasm of digestive organs; Z79.51 Long term (current) use of inhaled steroids; Z79.899 Other long term (current) drug therapy
CPT/HCPCS: J2003; J2704; G0105